=== PATIENT | female | born 1960 | race Caucasian/White ===

== ENCOUNTER → 2017-12-28 07:00 | Outpatient (CLI) | payer OTHER, SELFPAY ==
--- NOTE | 2017-12-28 06:44 | HPBI_ITS ---
MAMMOGRAPHY - BILATERAL SCREENING REASON FOR EXAM: Female, 57 years old. Routine annual screening examination. PERTINENT HISTORY: Non-contributory. TECHNIQUE: Digital bilateral breast donald (3D mammographic acquisition) in the CC and MLO projections. 2-D mediolateral oblique (MLO) and craniocaudad (CC) views of both breasts were obtained. CAD: Full Field Digital Mammography with Computer Added Detection was performed. COMPARISON: Comparison is made with prior artery examination dated December 22, 2016. FINDINGS: Breast Composition: There are scattered areas of fibroglandular density. There are no dominant masses or suspicious calcifications. No other significant abnormalities are identified. There has been no significant change since the prior study. HPBI/SCREENING MAMM (CAD), BILAT IMPRESSION: Stable bilateral screening mammogram. Yearly follow-up mammogram recommended. (A) ASSESSMENT CATEGORY: BIRADS Category 1: Negative. A letter regarding these results will be sent to the patient by the facility within 30 days. Approximately 10% of breast cancers are not detected by mammography. A normal mammogram should not delay biopsy of a clinically suspicious abnormality. [id number] Electronically Signed: Chad Teixeira MD at 8:07 EST Tel [phone], Service support ,
== END ==
PROVIDERS: Family Provider Family Medicine; PCP Family Medicine; Visit Provider Obstetrics & Gynecology
DX: Z12.31 Encounter for screening mammogram for malignant neoplasm of breast (principal)
CPT/HCPCS: 77063; 77067

== ENCOUNTER → 2017-12-28 07:08 | Outpatient (CLI) | payer OTHER, SELFPAY ==
[2017-12-31 11:39] LABS: HPV APTIMA, High Risk Negative (Negative)
== END ==
PROVIDERS: Family Provider Family Medicine; PCP Family Medicine; Visit Provider Nurse Practitioner Women's Health
DX: Z12.4 Encounter for screening for malignant neoplasm of cervix (principal)
CPT/HCPCS: 88175; G0145

== ENCOUNTER → 2018-05-10 05:57 | Outpatient (CLI) | payer OTHER, SELFPAY ==
[2018-05-10 07:57] LABS: Anion Gap 7 (5-15); BUN 20 mg/dL (7-18); BUN/Creat Ratio 26.6 RATIO (10-20); Calcium,Total 8.9 mg/dL (8.5-10.1); Chloride 107 mmol/L (98-107); Cholesterol 188 mg/dL (200); Creatinine, Serum 0.75 mg/dL (0.55-1.02); EST Glomerular Filtration Rate 84 mL/min (>60); Est Glom Filt Rate - Afr Amer 101 mL/min (>60); Glucose 87 mg/dL (74-106); High Density Lipoprotein 55 mg/dL; Sodium Level 141 mmol/L (136-145); Thyroid Stim Hormone (TSH) 2.93 uIU/mL (0.358-3.74); Triglycerides 118 mg/dL; Very Low Density Lipoprotein 24 mg/dL (5-40)
[2018-05-10 09:05] LABS: Vitamin D,25 Hydroxy 49.4 ng/mL (29.95-100.01)
== END ==
PROVIDERS: Family Provider Family Medicine; PCP Family Medicine; Visit Provider Family Medicine
DX: E78.5 Hyperlipidemia, unspecified (principal); E04.1 Nontoxic single thyroid nodule; E55.9 Vitamin D deficiency, unspecified
CPT/HCPCS: 36415; 80048; 80061; 82306; 84443

== ENCOUNTER → 2019-01-24 07:23 | Outpatient (CLI) | payer OTHER, SELFPAY ==
--- NOTE | 2019-01-24 07:26 | BI_ITS ---
MAMMOGRAPHY - BILATERAL SCREENING REASON FOR EXAM: Female, 58 years old. Routine annual screening examination. PERTINENT HISTORY: Non-contributory. TECHNIQUE: Digital bilateral breast donald (3D mammographic acquisition) in the CC and MLO projections. 2-D mediolateral oblique (MLO) and craniocaudad (CC) views of both breasts were obtained. CAD: Full Field Digital Mammography with Computer Added Detection was performed. COMPARISON: Comparison is made with prior study dated December 28, 2017. FINDINGS: Breast Composition: There are scattered areas of fibroglandular density. There are no dominant masses or suspicious calcifications. Stable benign-appearing small bilateral axillary lymph nodes. No other significant abnormalities are identified. There has been no significant change since the prior study. BI/SCREENING MAMM (CAD), BILAT IMPRESSION: Stable bilateral screening mammogram. Yearly follow-up mammogram recommended. (A) ASSESSMENT CATEGORY: BIRADS Category 2: Benign. A letter regarding these results will be sent to the patient by the facility within 30 days. Approximately 10% of breast cancers are not detected by mammography. A normal mammogram should not delay biopsy of a clinically suspicious abnormality. [id number] Electronically Signed: Chad Teixeira, at 11:07 EDT , Service support ,
== END ==
PROVIDERS: Family Provider Family Medicine; PCP Family Medicine; Referring Provider Nurse Practitioner Women's Health; Visit Provider Nurse Practitioner Women's Health
DX: Z12.31 Encounter for screening mammogram for malignant neoplasm of breast (principal)
CPT/HCPCS: 77063; 77067

== ENCOUNTER → 2019-04-14 05:57 | Outpatient (CLI) | payer OTHER, SELFPAY ==
[2019-01-24 08:29] VITALS: BMI 27.3
[2019-04-14 07:54] LABS: Erythrocyte Sedimentation Rate 12 mm/hr (0-30)
[2019-04-14 07:57] LABS: Hematocrit 42.8 % (37-47); Hemoglobin 14.3 g/dl (12.0-15.0); Mean Corp Hgb Conc 33.4 g/gl (32-36); Mean Corpuscular Hgb 30.7 pg (27.0-32.0); Mean Corpuscular Volume 91.8 fL (81-99); Platelet Count 318 K/mm3 (150-450); RBC Distribution Width CV 12.4 % (11.6-14.6); RBC Distribution Width SD 41.7 fl (35.1-43.9); Red Blood Count 4.66 M/mm3 (4.2-5.4); Scan Indicated on CBC? Y/N NO
[2019-04-14 08:22] LABS: Anion Gap 9 (5-15); BUN 24 mg/dL (7-18); BUN/Creat Ratio 29.9 RATIO (10-20); Calcium,Total 9.5 mg/dL (8.5-10.1); Chloride 103 mmol/L (98-107); Cholesterol 195 mg/dL (200); EST Glomerular Filtration Rate 77 mL/min (>60); Est Glom Filt Rate - Afr Amer 93 mL/min (>60); Ferritin 162 ng/mL (8-252); Glucose 90 mg/dL (74-106); High Density Lipoprotein 54 mg/dL; Iron 82 ug/dL (50-170); Potassium 3.8 mmol/L (3.5-5.1); Sodium Level 140 mmol/L (136-145); Thyroid Stim Hormone (TSH) 2.76 uIU/mL (0.358-3.74); Triglycerides 116 mg/dL; Very Low Density Lipoprotein 23 mg/dL (5-40)
[2019-04-14 08:59] LABS: Vitamin B12 > 2000 pg/mL (211-911); Vitamin D,25 Hydroxy 61.8 ng/mL (29.95-100.01)
== END ==
PROVIDERS: Family Provider Family Medicine; PCP Family Medicine; Referring Provider Family Medicine; Visit Provider Family Medicine
DX: Z13.220 Encounter for screening for lipoid disorders (principal); L65.9 Nonscarring hair loss, unspecified
CPT/HCPCS: 36415; 80048; 80061; 82306; 82607; 82728; 83540; 84443; 85027; 85652

== ENCOUNTER → 2020-05-28 07:08 | Outpatient (CLI) | payer OTHER, SELFPAY ==
[2019-01-24 08:29] VITALS: BMI 27.3
[2020-05-28 10:23] LABS: Absolute Lymphocyte Count 2.57 X10^3/uL (0.83-4.51); Absolute Neutrophil Count 3.4 X10^3/uL (2.0-7.7); Basophil# 0.05 X10^3/uL; Basophil% 0.7 % (0-1); Eosinophil# 0.26 X10^3/uL; Eosinophils% 3.7 % (0-5); Hematocrit 44.5 % (37-47); Hemoglobin 14.2 g/dL (12.0-15.0); Lymphocyte # 2.57 X10^3/ul (4.0); Lymphocyte % 36.8 % (19-41); Mean Corp Hgb Conc 31.9 g/dL (32-36); Mean Corpuscular Hgb 30.3 pg (27.0-32.0); Mean Corpuscular Volume 95.1 fL (81-99); Mean Platelet Vol. 10.5 fl (6.2-12.0); Monocyte# 0.71 X10^3/uL; Monocyte% 10.2 % (0-10); NRBC Flagged by Analyzer 0 % (0-5); Neutrophil # 3.39 X10^3/uL (2.7-7.7); Neutrophil % 48.5 % (47-70); Platelet Count 342 K/mm3 (150-450); RBC Distribution Width CV 12.3 % (11.6-14.6); RBC Distribution Width SD 42.5 fl (35.1-43.9); Red Blood Count 4.68 M/mm3 (4.2-5.4)
[2020-05-28 10:40] LABS: Vitamin D,25 Hydroxy 66.9 ng/mL
[2020-05-28 10:46] LABS: Anion Gap 8 (5-15); BUN 26 mg/dL (7-18); BUN/Creat Ratio 32.7 RATIO (10-20); Calcium,Total 8.8 mg/dL (8.5-10.1); Chloride 108 mmol/L (98-107); Cholesterol 221 mg/dL (200); Creatinine, Serum 0.79 mg/dL (0.55-1.02); EST Glomerular Filtration Rate 78 mL/min (>60); Est Glom Filt Rate - Afr Amer 94 mL/min (>60); Glucose 110 mg/dL (74-106); High Density Lipoprotein 49 mg/dL; Potassium 3.8 mmol/L (3.5-5.1); Sodium Level 142 mmol/L (136-145); Thyroid Stim Hormone (TSH) 2.91 uIU/mL (0.358-3.74); Triglycerides 93 mg/dL; Very Low Density Lipoprotein 19 mg/dL (5-40)
== END ==
LOC: LAB 06:41 → MTLAB 07:09
PROVIDERS: PCP Family Medicine; Referring Provider Family Medicine; Visit Provider Family Medicine
DX: E78.5 Hyperlipidemia, unspecified (principal); E55.9 Vitamin D deficiency, unspecified; E04.1 Nontoxic single thyroid nodule
CPT/HCPCS: 36415; 80048; 80061; 82306; 84443; 85025

== ENCOUNTER → 2020-06-05 07:35 | Outpatient (CLI) | payer OTHER, SELFPAY ==
[2019-01-24 08:29] VITALS: BMI 27.3
--- NOTE | 2020-06-05 07:36 | BI_ITS ---
MAMMOGRAPHY - BILATERAL SCREENING 3-D TOMOSYNTHESIS REASON FOR EXAM: Female, 59 years old. Routine screening PERTINENT HISTORY: FAM HX MAT 1ST COUSIN AGE 22 -- NO SX -- LT MOLE MARKED. TECHNIQUE: 2-D mammograms and 3-D Tomosynthesis of the breast (s) were performed. CAD was performed. COMPARISON: 01/24/2019 FINDINGS: The breast composition is composed of scattered fibroglandular density. Scattered benign calcifications are seen. No dense spiculated masses or suspicious microcalcifications are identified. No architectural distortion is identified. There is no skin thickening or retraction. There has been no significant change since the prior study. BI/SCREEN MAMM (CAD) W/SAMARIA BILAT IMPRESSION: No mammographic signs of malignancy. Routine yearly mammograms recommended. ASSESSMENT CATEGORY: BIRADS Category 1: Negative. A letter regarding these results will be sent to the patient by the facility within 30 days. FOLLOW UP RECOMMENDATION: Yearly follow up mammogram recommended. (A) Approximately 10% of breast cancers are not detected by mammography. A normal mammogram should not delay biopsy of a clinically suspicious abnormality. Electronically Signed: Chirag Patrick MD at 9:21 EDT , Service support ,
== END ==
PROVIDERS: Family Provider Family Medicine; PCP Family Medicine; Referring Provider Nurse Practitioner Women's Health; Visit Provider Nurse Practitioner Women's Health
DX: Z12.31 Encounter for screening mammogram for malignant neoplasm of breast (principal)
CPT/HCPCS: 77063; 77067

== ENCOUNTER → 2020-09-19 05:55 | Outpatient (CLI) | payer OTHER, SELFPAY ==
[2020-06-05 08:19] VITALS: BMI 27.3
[2020-09-19 07:43] LABS: ALB/GLOB Ratio 1.1 RATIO (0.9-2.4); AST(SGOT) 25 U/L (15-37); Alanine Aminotransfer ALT/SGPT 35 U/L (13-56); Albumin, Serum 3.9 g/dL (3.2-5.0); Alkaline Phosphatase 90 U/L (45-117); Anion Gap 6 (5-15); BUN 24 mg/dL (7-18); BUN/Creat Ratio 26.5 RATIO (10-20); Calcium,Total 9.1 mg/dL (8.5-10.1); Chloride 108 mmol/L (98-107); Cholesterol 193 mg/dL (200); Creatinine, Serum 0.91 mg/dL (0.55-1.02); EST Glomerular Filtration Rate 67 mL/min (>60); Est Glom Filt Rate - Afr Amer 81 mL/min (>60); Globulin 3.7 g/dL (2.2-4.2); Glucose 98 mg/dL (74-106); High Density Lipoprotein 56 mg/dL; Potassium 3.9 mmol/L (3.5-5.1); Protein, Total 7.6 g/dL (6.4-8.2); Sodium Level 141 mmol/L (136-145); Triglycerides 124 mg/dL; Very Low Density Lipoprotein 25 mg/dL (5-40)
== END ==
PROVIDERS: PCP Family Medicine; Referring Provider Family Medicine; Visit Provider Family Medicine
DX: E78.5 Hyperlipidemia, unspecified (principal)
CPT/HCPCS: 36415; 80053; 80061

== ENCOUNTER → 2020-12-15 07:05 | Outpatient (CLI) | payer OTHER, SELFPAY ==
[2020-06-05 08:19] VITALS: BMI 27.3
[2020-12-15 09:04] LABS: Anion Gap 4 (5-15); BUN 18 mg/dL (7-18); BUN/Creat Ratio 22.3 RATIO (10-20); Calcium,Total 9.1 mg/dL (8.5-10.1); Chloride 106 mmol/L (98-107); Cholesterol 138 mg/dL (200); Creatinine, Serum 0.81 mg/dL (0.55-1.02); EST Glomerular Filtration Rate 76 mL/min (>60); Est Glom Filt Rate - Afr Amer 92 mL/min (>60); Glucose 102 mg/dL (74-106); High Density Lipoprotein 55 mg/dL; Potassium 4.1 mmol/L (3.5-5.1); Sodium Level 140 mmol/L (136-145); Triglycerides 69 mg/dL; Very Low Density Lipoprotein 14 mg/dL (5-40)
== END ==
PROVIDERS: PCP Family Medicine; Referring Provider Family Medicine; Visit Provider Family Medicine
DX: E78.5 Hyperlipidemia, unspecified (principal)
CPT/HCPCS: 36415; 80048; 80061

== ENCOUNTER → 2021-06-03 05:59 | Outpatient (CLI) | payer OTHER, SELFPAY ==
[2020-06-05 08:19] VITALS: BMI 27.3
[2021-06-03 07:59] LABS: Hematocrit 44.7 % (37-47); Hemoglobin 14.3 g/dL (12.0-15.0); Mean Corpuscular Hgb 30.9 pg (27.0-32.0); Mean Corpuscular Volume 96.5 fL (81-99); Mean Platelet Vol. 10.2 fl (6.2-12.0); Platelet Count 337 K/mm3 (150-450); RBC Distribution Width CV 12.1 % (11.6-14.6); RBC Distribution Width SD 43.3 fl (35.1-43.9); Red Blood Count 4.63 M/mm3 (4.2-5.4); White Blood Count 6.8 K/mm3 (4.4-11.0)
[2021-06-03 08:32] LABS: Vitamin D,25 Hydroxy 81.9 ng/mL
[2021-06-03 08:38] LABS: ALB/GLOB Ratio 1.1 RATIO (0.9-2.4); AST(SGOT) 18 U/L (15-37); Alanine Aminotransfer ALT/SGPT 28 U/L (13-56); Alkaline Phosphatase 85 U/L (45-117); Anion Gap 5 (5-15); BUN 19 mg/dL (7-18); BUN/Creat Ratio 24.3 RATIO (10-20); Calcium,Total 9.1 mg/dL (8.5-10.1); Chloride 105 mmol/L (98-107); Cholesterol 176 mg/dL (200); Creatinine, Serum 0.78 mg/dL (0.55-1.02); EST Glomerular Filtration Rate 79 mL/min (>60); Est Glom Filt Rate - Afr Amer 96 mL/min (>60); Globulin 3.5 g/dL (2.2-4.2); Glucose 101 mg/dL (74-106); High Density Lipoprotein 54 mg/dL; Potassium 4.6 mmol/L (3.5-5.1); Protein, Total 7.5 g/dL (6.4-8.2); Sodium Level 140 mmol/L (136-145); Thyroid Stim Hormone (TSH) 4.14 uIU/mL (0.358-3.74); Triglycerides 125 mg/dL; Very Low Density Lipoprotein 25 mg/dL (5-40)
== END ==
PROVIDERS: PCP Family Medicine; Referring Provider Family Medicine; Visit Provider Family Medicine
DX: E55.9 Vitamin D deficiency, unspecified (principal); I10 Essential (primary) hypertension; E78.5 Hyperlipidemia, unspecified; Z13.29 Encounter for screening for other suspected endocrine disorder
CPT/HCPCS: 36415; 80053; 80061; 82306; 84443; 85027

== ENCOUNTER → 2021-06-11 08:17 | Outpatient (CLI) | payer OTHER, SELFPAY ==
[2020-06-05 08:19] VITALS: BMI 27.3
--- NOTE | 2021-06-11 08:20 | BI_ITS ---
MAMMOGRAPHY - BILATERAL SCREENING REASON FOR EXAM: Female, 60 years old. Routine annual screening examination. PERTINENT HISTORY: Non-contributory. TECHNIQUE: Digital bilateral breast samaria (3D mammographic acquisition) in the CC and MLO projections. 2-D mediolateral oblique (MLO) and craniocaudad (CC) views of both breasts were obtained. CAD: Full Field Digital Mammography with Computer Added Detection was performed. COMPARISON: Comparison is made with prior study dated 06/05/2020 and 01/24/2019. FINDINGS: Breast Composition: There are scattered areas of fibroglandular density. There are no dominant masses or suspicious calcifications. Stable benign-appearing bilateral axillary lymph nodes. No other significant abnormalities are identified. There has been no significant change since the prior study. BI/SCRN MAMM (CAD)W/SAMARIA BILAT IMPRESSION: Stable bilateral screening mammogram. Yearly follow-up mammogram recommended. (A) ASSESSMENT CATEGORY: BIRADS Category 2: Benign. A letter regarding these results will be sent to the patient by the facility within 30 days. Approximately 10% of breast cancers are not detected by mammography. A normal mammogram should not delay biopsy of a clinically suspicious abnormality. [id number] Electronically Signed: Chad Teixeira MD at 9:25 EDT , Service support ,
== END ==
PROVIDERS: PCP Family Medicine; Referring Provider Nurse Practitioner Women's Health; Visit Provider Nurse Practitioner Women's Health
DX: Z12.31 Encounter for screening mammogram for malignant neoplasm of breast (principal)
CPT/HCPCS: 77063; 77067

== ENCOUNTER 2021-11-18 15:32 | Outpatient (CLI) | payer OTHER, SELFPAY ==
--- NOTE | 2021-11-18 15:41 | EKG12_ITS ---
Test Reason : PREOP Blood Pressure : / mmHG Vent. Rate : 078 BPM Atrial Rate : 078 BPM P-R Int : 166 ms QRS Dur : 064 ms QT Int : 374 ms P-R-T Axes : 037 044 029 degrees QTc Int : 426 ms Normal sinus rhythm Septal infarct , age undetermined Abnormal ECG Confirmed by PEPPER URIBE, DALE ([id number]), greeting card editor AFSHIN LAY ([id number]) on 11/19/2021 11:31:28 AM Referred By: KWAN Confirmed By:DALE PABON MD
[2021-11-18 16:24] LABS: Hematocrit 41.3 % (37-47); Hemoglobin 13.4 g/dL (12.0-15.0); Mean Corp Hgb Conc 32.4 g/dL (32-36); Mean Corpuscular Hgb 30.4 pg (27.0-32.0); Mean Corpuscular Volume 93.7 fL (81-99); Platelet Count 320 K/mm3 (150-450); RBC Distribution Width CV 12.2 % (11.6-14.6); RBC Distribution Width SD 42.3 fl (35.1-43.9); Red Blood Count 4.41 M/mm3 (4.2-5.4); White Blood Count 8.1 K/mm3 (4.4-11.0)
[2021-11-18 17:17] LABS: Anion Gap 7 (5-15); BUN 18 mg/dL (7-18); BUN/Creat Ratio 19.9 RATIO (10-20); Calcium,Total 9.2 mg/dL (8.5-10.1); Chloride 107 mmol/L (98-107); EST Glomerular Filtration Rate 67 mL/min (>60); Est Glom Filt Rate - Afr Amer 81 mL/min (>60); Glucose 95 mg/dL (74-106); Sodium Level 142 mmol/L (136-145)
== END 2021-11-18 23:59 | disposition short-term general hospital (02) ==
PROVIDERS: PCP Family Medicine; Visit Provider Otolaryngology
DX: Z01.818 Encounter for other preprocedural examination (principal)
CPT/HCPCS: 36415; 80048; 85027; 93005

== ENCOUNTER 2021-11-25 14:56 | Outpatient (CLI) | payer OTHER, SELFPAY ==
--- NOTE | 2021-11-25 | PHA_PTH ---
PAT[facility]: [id number] AGE/SX: 61/F ROOM: RE11/25/[address]: Dr. Magnus Pena MD : 1960 BED: DIS: 11/25/2021 SPEC #: [id number] RECD: 11/25/21 15:25 STATUS: JHOANA RESinan #: [id number] JAMAAL: 11/25/21 00:[address]: Magnus Pena DEPT: SURGICAL PATHOLOGY RECD BY: Fransisca Quesada ENTERED: 11/26/21 07:01 SP TYPE: PHARYNX BX OTHR DR: Dr. 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 Negative for malignancy. See comment. RESHMA:lucio 11/27/2021 COMMENT Clinical correlation and appropriate follow up are necessary. Immunohistochemistry ([id number]) for surrogate HPV marker (p16) supports the above diagnosis. Case has been reviewed in consultation with Dr. Cuenca who concurs with the above diagnosis. IDC:AM MICROSCOPIC DESCRIPTION Slides are reviewed. GROSS DESCRIPTION Received is one container labeled with the patient's name and not further designated. The specimen consists of multiple irregular fragments of cerrato soft tissue that in aggregate measure 1.5 x 0.7 x 0.2 cm. The specimen is totally submitted in one cassette. / RESHMA:lucio 11/26/2021 TC:1 CPT: 70511 ADDENDUM ADDENDUM ADDENDUM ADDENDUM ADDENDUM ADDENDUM ADDENDUM ADDENDUM ADDENDUM ADDENDUM 02/13/2022 09:56 ADDENDUM 02/13/2022 09:56 ADDENDUM 02/13/2022 09:56 ADDENDUM 02/13/2022 09:56 ADDENDUM 02/13/2022 09:56 This addendum is added to incorporate an outside pathology consultation report. The case was examined at [facility] (#[id number]) and the following diagnosis was rendered. 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 Please see complete above mentioned consultation report in EMR
--- NOTE | 2021-11-25 | IMM_PTH ---
PATIENT: LETITIA MALONE LOC: [facility] U#:[id number] AGE/SX: 61/F ROOM: RE11/25/[address]: Dr. Magnus Pena MD : 1960 BED: DIS: 11/25/2021 SPEC #: [id number] RECD: 11/27/21 12:33 STATUS: JHOANA REQ #: [id number] JAMAAL: 11/25/21 00:[address]: Magnus Pena DEPT: IMMUNOHISTOCHEMISTRY RECD BY: Shanae Bingham ENTERED: 11/27/21 12:34 SP TYPE: IMMUNO OTHR DR: Dr. Jonathan Sanchez MD Tissues: Oropharynx, NOS Procedures: p16 (initial) KI-67 (add) PHYSICIAN & INSTITUTION [place] [id number] SPECIMEN INFORMATION: Tissue Source: Oropharyngeal neoplasm biopsy Clinical Info: Benign neoplasm of oropharynx Specimen Number: [id number] CPT code: 64908, 77146 METHODOLOGY: Deparaffinized sections of prefer/formalin-fixed tissue or PAP/DQ stained slides are incubated with monoclonal/polyclonal antibodies/oligonucleotide probes. Localization is made via biotin free immunoperoxidase method. Appropriate controls are performed and reacted as expected. Results on target cell population are indicated in the following table: RESULTS: ANTIBODY / CLONE RESULT P16 (E6H4) positive, focal, patchy Ki-67 (30-9) positive, low to moderate These tests were developed and their performance characteristics determined by [facility]. They may not have been cleared or approved by the U.S. Food and Drug Administration. The FDA has determined that such clearance or approval is not necessary. The above immunohistochemical/dualISH markers are ordered and reviewed by the Pathologist. INTERPRETATION: Oropharyngeal neoplasm, biopsy: Squamous papilloma with focal mild to moderate atypia. Case has been reviewed in consultation with who concurs with the above diagnosis. SJ:lucio 11/28/2021
== END 2021-11-25 23:59 | disposition short-term general hospital (02) ==
LOC: LABSPEC 14:58
PROVIDERS: PCP Family Medicine; Visit Provider Otolaryngology
DX: D10.5 Benign neoplasm of other parts of oropharynx (principal)
CPT/HCPCS: 88305; 88341; 88342

== ENCOUNTER 2021-11-30 06:59 | Outpatient (CLI) | payer OTHER, SELFPAY ==
[2021-11-30 08:04] LABS: Anion Gap 3 (5-15); BUN 18 mg/dL (7-18); BUN/Creat Ratio 21.1 RATIO (10-20); Calcium,Total 9.7 mg/dL (8.5-10.1); Chloride 106 mmol/L (98-107); Cholesterol 148 mg/dL (200); Creatinine, Serum 0.85 mg/dL (0.55-1.02); EST Glomerular Filtration Rate 71 mL/min (>60); Est Glom Filt Rate - Afr Amer 86 mL/min (>60); Glucose 122 mg/dL (74-106); High Density Lipoprotein 54 mg/dL; Potassium 4.6 mmol/L (3.5-5.1); Sodium Level 139 mmol/L (136-145); Thyroid Stim Hormone (TSH) 1.87 uIU/mL (0.358-3.74); Triglycerides 162 mg/dL; Very Low Density Lipoprotein 32 mg/dL (5-40)
[2021-12-02 10:29] LABS: Vitamin B12 > 2000 pg/mL (211-911); Vitamin D,25 Hydroxy 77.6 ng/mL
== END 2021-11-30 23:59 | disposition short-term general hospital (02) ==
LOC: LAB 07:00
PROVIDERS: PCP Family Medicine; Referring Provider Family Medicine; Visit Provider Family Medicine
DX: I10 Essential (primary) hypertension (principal); E55.9 Vitamin D deficiency, unspecified; E04.1 Nontoxic single thyroid nodule; E78.5 Hyperlipidemia, unspecified
CPT/HCPCS: 36415; 80048; 80061; 82306; 82607; 84443

== ENCOUNTER → 2022-05-30 | Outpatient (CLI) | payer OTHER, SELFPAY | END | disposition home or self-care (01) | PROVIDERS: PCP Family Medicine; Visit Provider Family Medicine | DX: Z01.818 Encounter for other preprocedural examination (principal) | CPT/HCPCS: 87635; U0003; U0005 ==

== ENCOUNTER → 2022-06-11 | Outpatient (CLI) | payer OTHER, SELFPAY ==
[2022-06-11 06:27] LABS: Absolute Lymphocyte Count 2.42 X10^3/uL (0.83-4.51); Absolute Neutrophil Count 3.5 X10^3/uL (2.0-7.7); Basophil# 0.06 X10^3/uL; Basophil% 0.9 % (0-1); Eosinophil# 0.28 X10^3/uL; Hematocrit 40.8 % (37-47); Hemoglobin 13.3 g/dL (12.0-15.0); Lymphocyte # 2.42 X10^3/ul (0.83-4.51); Mean Corp Hgb Conc 32.6 g/dL (32-36); Mean Corpuscular Hgb 30.4 pg (27.0-32.0); Mean Corpuscular Volume 93.4 fL (81-99); Mean Platelet Vol. 9.8 fl (6.2-12.0); Monocyte# 0.64 X10^3/uL; Monocyte% 9.2 % (0-10); NRBC Flagged by Analyzer 0 % (0-5); Neutrophil % 50.6 % (47-70); Platelet Count 333 K/mm3 (150-450); RBC Distribution Width CV 12.1 % (11.6-14.6); RBC Distribution Width SD 41.7 fl (35.1-43.9); Red Blood Count 4.37 M/mm3 (4.2-5.4); White Blood Count 6.9 K/mm3 (4.4-11.0)
[2022-06-11 06:59] LABS: ALB/GLOB Ratio 1.1 RATIO (0.9-2.4); AST(SGOT) 15 U/L (15-37); Alanine Aminotransfer ALT/SGPT 21 U/L (13-56); Albumin, Serum 3.6 g/dL (3.2-5.0); Alkaline Phosphatase 84 U/L (45-117); Anion Gap 6 (5-15); BUN 20 mg/dL (7-18); BUN/Creat Ratio 26.9 RATIO (10-20); Calcium,Total 8.8 mg/dL (8.5-10.1); Chloride 108 mmol/L (98-107); Cholesterol 141 mg/dL (200); Creatinine, Serum 0.74 mg/dL (0.55-1.02); EST Glomerular Filtration Rate 84 mL/min (>60); Est Glom Filt Rate - Afr Amer 101 mL/min (>60); Globulin 3.4 g/dL (2.2-4.2); Glucose 116 mg/dL (74-106); High Density Lipoprotein 48 mg/dL; Sodium Level 140 mmol/L (136-145); Triglycerides 87 mg/dL; Very Low Density Lipoprotein 17 mg/dL (5-40)
[2022-06-11 08:20] LABS: Vitamin D,25 Hydroxy 100.2 ng/mL
== END | disposition home or self-care (01) ==
LOC: LAB 05:52
PROVIDERS: PCP Family Medicine; Visit Provider Nurse Practitioner Family
DX: Z01.89 Encounter for other specified special examinations (principal)
CPT/HCPCS: 36415; 80053; 80061; 82306; 85025

== ENCOUNTER → 2022-06-16 | Outpatient (CLI) | payer OTHER, SELFPAY ==
[2021-06-11 08:51] VITALS: BMI 27.3
--- NOTE | 2022-06-16 07:34 | BI_ITS ---
MAMMOGRAPHY - BILATERAL SCREENING 3-D TOMOSYNTHESIS REASON FOR EXAM: Female, 61 years old. Annual screening mammogram. PERTINENT HISTORY: No significant family history. TECHNIQUE: 2-D mammograms and 3-D Tomosynthesis of the breast (s) were performed. CAD was performed. COMPARISON: 06/11/2021, 06/05/2020. FINDINGS: The breast composition is composed of scattered fibroglandular density. Stable lymph nodes. No dense spiculated masses or suspicious microcalcifications are identified. No architectural distortion is identified. There is no skin thickening or retraction. BI/SCRN MAMM (CAD)W/SAMARIA BILAT IMPRESSION: No interval change and no mammographic signs of malignancy. Routine yearly mammograms recommended. ASSESSMENT CATEGORY: BIRADS Category 2: Benign. A letter regarding these results will be sent to the patient by the facility within 30 days. FOLLOW UP RECOMMENDATION: Yearly follow up mammogram recommended. (A) Approximately 10% of breast cancers are not detected by mammography. A normal mammogram should not delay biopsy of a clinically suspicious abnormality. Electronically Signed: Richard Saeed MD at 10:59 EDT ,
[2022-06-18 16:23] LABS: HPV APTIMA, High Risk Negative (Negative)
== END | disposition home or self-care (01) ==
PROVIDERS: PCP Family Medicine; Visit Provider Nurse Practitioner Women's Health
DX: Z12.31 Encounter for screening mammogram for malignant neoplasm of breast (principal)
CPT/HCPCS: 77063; 77067; 87624; 88175; G0145

== ENCOUNTER → 2022-12-13 | Outpatient (CLI) | payer OTHER, SELFPAY ==
[2022-12-13 08:06] LABS: Absolute Lymphocyte Count 2.55 X10^3/uL (0.83-4.51); Absolute Neutrophil Count 4.3 X10^3/uL (2.0-7.7); Basophil# 0.06 X10^3/uL; Basophil% 0.8 % (0-1); Eosinophils% 3.8 % (0-5); Hematocrit 43.1 % (37-47); Hemoglobin 13.8 g/dL (12.0-15.0); Lymphocyte # 2.55 X10^3/ul (0.83-4.51); Lymphocyte % 32.3 % (19-41); Mean Corpuscular Hgb 30.4 pg (27.0-32.0); Mean Corpuscular Volume 94.9 fL (81-99); Mean Platelet Vol. 10.2 fl (6.2-12.0); Monocyte# 0.66 X10^3/uL; Monocyte% 8.4 % (0-10); NRBC Flagged by Analyzer 0 % (0-5); Neutrophil % 54.4 % (47-70); Platelet Count 336 K/mm3 (150-450); RBC Distribution Width CV 12.7 % (11.6-14.6); RBC Distribution Width SD 44.4 fl (35.1-43.9); Red Blood Count 4.54 M/mm3 (4.2-5.4); White Blood Count 7.9 K/mm3 (4.4-11.0)
[2022-12-13 08:52] LABS: ALB/GLOB Ratio 1.1 RATIO (0.9-2.4); AST(SGOT) 14 U/L (15-37); Alanine Aminotransfer ALT/SGPT 22 U/L (13-56); Albumin, Serum 3.7 g/dL (3.2-5.0); Alkaline Phosphatase 85 U/L (45-117); Anion Gap 7 (5-15); BUN 22 mg/dL (7-18); BUN/Creat Ratio 28.4 RATIO (10-20); Chloride 108 mmol/L (98-107); Cholesterol 164 mg/dL (200); Creatinine, Serum 0.78 mg/dL (0.55-1.02); EST Glomerular Filtration Rate 79 mL/min (>60); Est Glom Filt Rate - Afr Amer 96 mL/min (>60); Globulin 3.5 g/dL (2.2-4.2); Glucose 108 mg/dL (74-106); High Density Lipoprotein 55 mg/dL; Potassium 4.1 mmol/L (3.5-5.1); Protein, Total 7.2 g/dL (6.4-8.2); Sodium Level 142 mmol/L (136-145); Triglycerides 96 mg/dL; Very Low Density Lipoprotein 19 mg/dL (5-40)
[2022-12-15 07:47] LABS: Vitamin D,25 Hydroxy 82.7 ng/mL
== END | disposition home or self-care (01) ==
LOC: LAB 07:02
PROVIDERS: PCP Family Medicine; Visit Provider Family Medicine
DX: Z00.00 Encounter for general adult medical examination without abnormal findings (principal)
CPT/HCPCS: 36415; 80053; 80061; 82306; 85025

== ENCOUNTER → 2023-06-13 | Outpatient (CLI) | payer OTHER, SELFPAY ==
[2023-06-13 08:11] LABS: Anion Gap 7 (5-15); BUN 12 mg/dL (7-18); BUN/Creat Ratio 13.8 RATIO (10-20); Calcium,Total 9.1 mg/dL (8.5-10.1); Chloride 107 mmol/L (98-107); Cholesterol 160 mg/dL (200); Creatinine, Serum 0.87 mg/dL (0.55-1.02); EST Glomerular Filtration Rate 70 mL/min (>60); Est Glom Filt Rate - Afr Amer 84 mL/min (>60); Glucose 109 mg/dL (74-106); High Density Lipoprotein 53 mg/dL; Potassium 3.7 mmol/L (3.5-5.1); Sodium Level 140 mmol/L (136-145); Triglycerides 172 mg/dL; Very Low Density Lipoprotein 34 mg/dL (5-40)
[2023-06-16 12:09] LABS: Vitamin D 1,25-Dihydroxy 53.5 pg/mL (24.8-81.5)
== END | disposition home or self-care (01) ==
LOC: LAB 07:02
PROVIDERS: PCP Family Medicine; Visit Provider Family Medicine
DX: I10 Essential (primary) hypertension (principal); E55.9 Vitamin D deficiency, unspecified
CPT/HCPCS: 36415; 80048; 80061; 82652

== ENCOUNTER → 2023-06-22 | Outpatient (CLI) | payer OTHER, SELFPAY ==
--- NOTE | 2023-06-22 07:45 | BI_ITS ---
MAMMOGRAPHY - BILATERAL SCREENING REASON FOR EXAM: Female, 62 years old. Routine annual screening examination. PERTINENT HISTORY: Non-contributory. TECHNIQUE: Digital bilateral breast samaria (3D mammographic acquisition) in the CC and MLO projections. 2-D mediolateral oblique (MLO) and craniocaudad (CC) views of both breasts were obtained. CAD: Full Field Digital Mammography with Computer Added Detection was performed. COMPARISON: Comparison is made with prior study dated June 16, 2022 and June 11, 2021. FINDINGS: Breast Composition: The breasts are heterogeneously dense, which may obscure small masses. There are no dominant masses or suspicious calcifications. Stable small benign-appearing bilateral axillary lymph nodes. No other significant abnormalities are identified. There has been no significant change since the prior study. BI/SCRN MAMM (CAD)W/SAMARIA BILAT IMPRESSION: Stable bilateral screening mammogram. Yearly follow-up mammogram recommended. (A) ASSESSMENT CATEGORY: BIRADS Category 2: Benign. A letter regarding these results will be sent to the patient by the facility within 30 days. Approximately 10% of breast cancers are not detected by mammography. A normal mammogram should not delay biopsy of a clinically suspicious abnormality. [id number] Electronically Signed: Chad Teixeira MD at 9:10 EDT ,
== END | disposition home or self-care (01) ==
LOC: OPBI 07:26
PROVIDERS: PCP Family Medicine; Referring Provider Nurse Practitioner Women's Health; Visit Provider Nurse Practitioner Women's Health
DX: Z12.31 Encounter for screening mammogram for malignant neoplasm of breast (principal)
CPT/HCPCS: 77063; 77067

== ENCOUNTER → 2023-12-07 | Outpatient (CLI) | payer MEDICARE, OTHER, SELFPAY ==
--- OUTSIDE RECORDS SUMMARY | 2023-12-07 06:14 | XMS RPT_ITS | CCD ---
Author Name Unknown Address [address] [place] [address] Organization [facility] Care Team Providers Care Mortgage Assistant Name Role Phone Portillo Marti Unavailable Unavailable Unavailable Unavailable Unavailable Dr. Portillo Marti Primary Care Terri vailable Dr. Edison Evans Referring Unavailable Dr. Portillo Marti Primary Care Terri vailable Cristina, Dr. London Attending Unavailable Cristina, Dr. London Attending Unavailable Cristina, Dr. London Referring Unavailable Daniel, Dr. Portillo Flannery Primary Care Terri vailable Daniel, Dr. Portillo Flannery Primary Care Terri vailable Daniel, Dr. Portillo Flannery Referring Terri vailable Cristina, Dr. London Attending Unavailable Daniel, Dr. Portillo Flannery Primary Care Terri vailaDr. Edison Dean Admitting Unavailable Cristina, Dr. London Referring Unavailable Cristina, Dr. London Attending Unavailable Dr. Portillo Marti Primary Care Terri vailable Dr. Edison Evans Attending Unavailable Portillo Marti MD [facility] Provide r EDISON EVANS Attending Unavailable PORTILLO MARTI Primary [facility] Unavail able Allergies Allergy Classification Reported Allergen(s) Allergy Type Date of Onset Reaction(s) Facility (7 sources) Penicillins; Translations: [Penicillins] Allergy to drug (finding) -[id number] 5 [facility] 3 Repository (2 sources) Estradiol / Norethindrone; Translations: [ESTRADIOL-NORE THINDRONE ACET] Drug Allergy 4 Other [facility] (1 source) Penicillins Drug Intolerance 5 Swelling, Other, Unknown [facility] Work Phone: Medications Current Medications Medication Drug Class(es) Dates Sig (Normalized) Sig (Original) atorvastatin 20 mg oral tablet (8 sources) HMG-CoA Reductase Inhibitor Start: 01-08-2021 take 1 tablet by mouth three times weekly atorvastatin (Lipitor) 20 mg tablet Take 1 tablet (20 mg) by mouth 3 times a week. 0 01/08/2021 Active Completed/Discontinued Medications Medication Drug Class(es) Dates Sig (Normalized) Sig (Original) acetaminophen 500 mg oral tablet (7 sources) Tylenol Extra Strength 500 MG Oral Tablet Quantity: 0 Refills: 0 Ordered: 30-Dec-2021 DO Active acetaminophen 24 mg/ml / codeine phosphate 2.4 mg/ml oral solution (3 sources) Opioid Agonist Start: 06-02-2022 take 15 mL by mouth every six hours as needed for pain Acetaminophen-Cod eine 120-12 MG/5ML Oral Solution TAKE 15 ML BY MOUTH EVERY 6 HOURS NEEDED FOR PAIN Quantity: 140 Refills: 0 Ordered: 02-Jun-2022 DO Start : 02-Jun-2022 Active ascorbic acid 200 mg / beta carotene 1000 unt / cuprous oxide 2 mg / dl-alpha tocopheryl acetate 60 unt / lutein 2 mg / sodium selenate 0.055 mg / zinc oxide 40 mg oral tablet (7 sources) Vitamin C Ocuvite TABS Quantity: 0 Refills: 0 Ordered: 30-Dec-2021 DO Active biotin 10 mg oral tablet (7 sources) Biotin 20121 MCG Oral Tablet Quantity: 0 Refills: 0 Ordered: 30-Dec-2021 DO Active brompheniramine maleate 0.4 mg/ml / dextromethorphan hydrobromide 2 mg/ml / pseudoephedrine hydrochloride 6 mg/ml oral solution (5 sources) alpha-Adrenergic Agonist, Uncompetitive S-wxztfs-Y-aspartat e Receptor Antagonist, Sigma-1 Agonist Start: 04-22-2022 Pseudoeph-Bromphe n-DM 30-2-10 MG/5ML Oral Syrup Quantity: 240 Refills: 0 Ordered: 22-Apr-2022 DO Start : 22-Apr-2022 Active estradiol 0.1 mg/ml vaginal cream (7 sources) Estrogen Estradiol 0.1 MG/GM Vaginal Cream Quantity: 0 Refills: 0 Ordered: 30-Dec-2021 DO Active polyethylene glycol 3350 81081 mg powder for oral solution (3 sources) Osmotic Laxative Start: 06-02-2022 Polyethylene Glycol 3350 17 GM/SCOOP Oral Powder MIX 17 GM IN LIQUID AND DRINK ONCE DAILY Quantity: 238 Refills: 0 Ordered: 02-Jun-2022 DO Start : 02-Jun-2022 Active 24 hr venlafaxine 75 mg extended release oral capsule (8 sources) Serotonin and Norepinephrine Reuptake Inhibitor Start: 12-31-2020 take 1 capsule by mouth every twenty-four hours Venlafaxine HCl ER 75 MG Oral Capsule Extended Release 24 Hour Quantity: 30 Refills: 0 Ordered: 05-Mar-2021 DO Start : 31-Dec-2020 Active Problems Active Problems Problem Classification Problem Date Documented Da te Episodic/Chronic Acute and chronic tonsillitis (1 source) Mass of palatine tonsil; Translations: [Other chronic diseases of tonsils and adenoids] 10-05-2023 Chronic Disorders of lipid metabolism (1 source) Hyperlipidemia, unspecified; Translations: [Hyperlipidemia, unspecified] Onset: 06-02-2022 Chronic Essential hypertension (1 source) Essential (primary) hypertension; Translations: [Essential (primary) hypertension] Onset: 06-02-2022 Chronic Mood disorders (1 source) Mood disorders; Translations: [Depression, unspecified] Onset: 06-02-2022 Other and unspecified benign neoplasm (7 sources) Benign neoplasm of oropharynx; Translations: [Benign neoplasm of other parts of oropharynx] Episodic Other gastrointestinal disorders (1 source) Irritable bowel syndrome without diarrhea; Translations: [Irritable bowel syndrome without diarrhea] Onset: 06-02-2022 Chronic Past or Other Problems Problem Classification Problem Date Documented Da te Episodic/Chronic Other aftercare (1 source) Other buttermaker helper (current) drug therapy; Translations: [Other buttermaker helper (current) drug therapy] Onset: 05-27-2022 Episodic Other and unspecified benign neoplasm (2 sources) Benign neoplasm of other parts of oropharynx; Translations: [Benign neoplasm of other parts of oropharynx] Onset: 06-02-2022 Episodic Unclassified (1 source) Onset: 10-05-2023 10-05-2023 Results Test Name Value Interpretation Reference Range Facil ity Vital Signs Date Time Vital Sign Value Performing Clinician Darien gutierres 10-05-2023 15:09-0500 Body height 163.2 cm Edison Evans MD Work Phone: [facility] 10-05-2023 15:09-0500 Body mass index (BMI) [Ratio] 28.61 kg/m2 Edison Evans MD Work Phone: [facility] 10-05-2023 15:09-0500 Body weight 76.2 kg Edison Evans MD Work Phone: [facility] 01-26-2023 08:17-0400 Body height 162.56 cm Portillo Marti Work Phone[facility] Work Phone: 01-26-2023 08:17-0400 Body mass index (BMI) [Ratio] 28.65 kg/m2 Portillo Marti Work Phone: [facility] Work Phone: 01-26-2023 08:17-0400 Body surface area Derived from formula 1.81 m2 Portillo Marti Work Phone: [facility] Work Phone: 01-26-2023 08:17-0400 Body weight 75.71 kg Portillo Marti Work Phone: [facility] Work Phone: 06-23-2022 14:51-0400 Body height 162.56 cm Portillo Marti Work Phone: MU-Fkbefycxsttxjh-G eidman Work Phone: 06-23-2022 14:51-0400 Body mass index (BMI) [Ratio] 27.67 kg/m2 Portillo Rodriguez Daniel Work Phone: FT-Npcjlmsurjmbpi-O e[facility]man Work Phone: 06-23-2022 14:51-0400 Body surface area Derived from formula 1.78 m2 Portillo Rodriguez Hardeepeugenio Work Phone: IJ-Fodngcztbnxrum-Q eidman Work Phone: 06-23-2022 14:51-0400 Body temperature 93.6 [degF] Portillo Rodriguez Hardeepeugenio Work Phone: NA-Imtbqdkvvgmvpg-F eidman Work Phone: 06-23-2022 14:51-0400 Body weight 73.12 kg Portillo Marti Work Phone: VF-Lvazvumwkisosy-D eidman Work Phone: 05-12-2022 15:43-0400 Body height 162.56 cm Portillo Marti Work Phone: [facility]zl[facility] Work Phone: 05-12-2022 15:43-0400 Body mass index (BMI) [Ratio] 28.15 kg/m2 Portillo Marti Work Phone: [facility]gu[facility] Work Phone: 05-12-2022 15:43-0400 Body surface area Derived from formula 1.8 m2 Portillo Marti Work Phone: [facility]cdn[facility] Work Phone: 05-12-2022 15:43-0400 Body temperature 99 [degF] Portillo Marti Work Phone: KP-Ipuaphricmibgm-K [facility] [address] Work Phone: 05-12-2022 15:43-0400 Body weight 74.39 kg Portillo Marti Work Phone: ZS-Rujtdmgxzpwnem-E [facility] [address] Work Phone: 12-30-2021 16:04-0500 Body height 162.56 cm Portillo Marti Work Phone: IW-Wpyxvgmyweosys-P e[facility] Work Phone: 12-30-2021 16:04-0500 Body mass index (BMI) [Ratio] 27.96 kg/m2 Portillo Marti Work Phone: CO-Xteiiulsyefotn-H e[facility]man Work Phone: 12-30-2021 16:04-0500 Body surface area Derived from formula 1.79 m2 Portillo Marti Work Phone: QY-Bzfsundlklpmvh-C eidman Work Phone: 12-30-2021 16:04-0500 Body temperature 98.2 [degF] Portillo Marti Work Phone: WT-Gfimpicjmjymlp-P eidman Work Phone: 12-30-2021 16:04-0500 Body weight 73.89 kg Portillo Marti Work Phone: II-Ajmndaqhfspmzh-M e[facility]man Work Phone: Encounters Encounter Date Encounter Type Care Provider Facility Start: 10-05-2023 End: 10-05-2023 ambulatory [facility] Ambulatory Start: 10-05-2023 End: 10-05-2023 Office outpatient visit 10 minutes Edison Evans MD Work Phone: [facility] Procedures Date Procedure Procedure Detail Performing Clinician Start: 10-05-2023 Follow-up visit Follow-up EDISON L I Plan of Treatment Date Care Activity Detail Author Start: 06-11-2031 DTaP/Tdap/Td Vaccines (2 - Td or Tdap) DTaP/Tdap/Td Vaccines (2 - Td or Tdap) [facility] Start: 04-04-2024 End: 04-04-2024 Patient encounter procedure 04/04/2024 3:15 PM EDT Office Visit [facility] [address] [place] [id number] [place] [address] [place] [address] [facility] Start: 07-13-2023 FUV, Provider: Edison Evans, Status: Pen, Time: 4:00 PM FUV, Provider: Edison Evans, Status: Pen, Time: 4:00 PM PZ-Sqlezynfsvappe-Zxv grin [facility] [address] Work Phone: Start: 01-26-2023 FUV, Provider: Edison Eavns, Status: Pen, Time: 8:00 AM FUV, Provider: Edison Evans, Status: Pen, Time: 8:00 AM CN-Narmalityxptyf-Gzt dman Work Phone: Start: 12-29-2022 FUV, Provider: Edison Evans, Status: Pen, Time: 8:00 AM FUV, Provider: Edison Evans, Status: Pen, Time: 8:00 AM BK-Fhsmmtsfzcabii-Dee dman Work Phone: Start: 11-17-2022 COVID-19 Vaccine (5 - Moderna risk series) COVID-19 Vaccine (5 - Moderna risk series) [facility] Start: 06-02-2022 [facility], Provider: Edison Evans, Status: Pen, Time: 1:00 PM [facility], Provider: Edison Evans, Status: Pen, Time: 1:00 PM EY-Kpysypvifgxfva-Mdj dman Work Phone: Start: 05-12-2022 FUV, Provider: Edison Evans, Status: Pen, Time: 4:00 PM FUV, Provider: Edison Evans, Status: Satinder, Time: 4:00 PM DJ-Erxjcclyjlvsnv-Hzr dman Work Phone: Start: 10-26-2020 Zoster Vaccines (2 of 2) Zoster Vaccines (2 of 2) [facility] Start: 1998 Screening for malignant neoplasm of breast Mammogram [facility] Start: 1979 Screening for malignant neoplasm of cervix [facility] Start: 1976 Diabetes mellitus screening Diabetes Screening [facility] Start: 1976 Hepatitis C screening Hepatitis C Screening [facility] Start: 1964 Pneumococcal Vaccine: 65+ Years (1 - PCV) Pneumococcal Vaccine: 65+ Years (1 - PCV) [facility] Start: 1959 MMR Vaccines (1 of 1 - Standard series) MMR Vaccines (1 of 1 - Standard series) [facility] Start: 1958 Lipid panel Lipid Panel [facility] Start: 1958 Screening for malignant neoplasm of colon [facility] Start: 1958 Screening for osteoporosis Bone Density Scan [facility] Start: 1958 Yearly Adult Physical Yearly Adult Physical [facility] Payers Date Payer Category Payer Unknown 2023 Unknown [id number] 1958 Unknown [id number] [id number] 1958 Unknown [id number] 2.16. [id number] 1958 Unknown [id number] 2.16. [id number] 1958 Unknown [id number] 2.16. [id number] 1958 Unknown [id number] [id number] 1958 Unknown [id number] [id number] [id number] 1958 Unknown [id number] [id number] Social History Date Type Detail Facility Start: 10-05-2023 Tobacco smoking status NHIS Never smoked tobacco [facility] Work Phone: Start: 10-05-2023 Tobacco use and exposure Smokeless tobacco non-user [facility] Work Phone: Start: 10-05-2023 History of Social function [facility] Work Phone: Start: 10-05-2023 Tobacco use panel [facility] Work Phone: Start: 1960 Sex Assigned At Female [facility] Start: 08-16-2023 Gender identity Identifies as female gender (finding) [facility] Work Phone: Start: 08-16-2023 Sexual orientation Heterosexual (finding) [facility] Work Phone: Start: 09-25-2023 End: 10-05-2023 Exposure to SARS-CoV-2 (event) Not sure [facility] History of Present illness Narrative 10-05-2023 Edison Evans MD - 10/05/2023 3:15 PM EST Note Date & Type Note Facility 10-05-2023 History of Present illness Narrative ENT Follow up Visit History Of Present Illness Brenna Mendoza is a 63 y.o. female presents for follow up of tonsillar papilloma. Recall 61 yo woman referred by Dr. Pena for evaluation of oropharyngeal papillomas. She first noticed this 5-6 years ago. had right sided tonsillectomy for redundant tissue prior to that. May have slowly grown but not causing any symptoms. No pain, no trouble breathing; no bleeding. This was biopsied showing no malignancy. no bleeding disorders, no cardiac problems. 05-12-22 FU: no new complaints, some right sided nasal congestion off an on. no pain 06-23-22 post-op: s/p removal of oropharyngeal papilloma. minimal pain, no bleeding 01-26-23 FU: doing well, no complaints today 10-05-23 FU: she is doing well, overwhelmed since her is getting chemo for CLL/SLL. Past Medical History She has no past medical history on file. Surgical History She has no past surgical history on file. Social History She reports that she has never smoked. She has never used smokeless tobacco. No history on file for alcohol use and drug use. Family History No family history on file. Allergies Estradiol-norethindrone acet and Penicillins Physical Exam: nad alert shonda eomi NCAT right tonsil fossa well healed scar band no residual papilloma seen neck without masses or LIVIA Last Recorded Vitals Height 1.632 m (5' 4.25 ), weight 76.2 kg (168 lb). Assessment and Plan 63 y.o. female with oropharyngeal papillomas S/p excision with path showing mild-mod dysplasia with papilloma -well healed -RTC in 6 months Edison Evans MD documented in this encounter [facility] Work Phone: Clinical Note 06-02-2022 Note Date & Type Note Facility 06-02-2022 Note PROCEDURE DETAILS Preoperative Diagnosis: 1. Papilloma of oropharynx Postoperative Diagnosis: 1. Papilloma of oropharynx Surgeon: Edison Evans Resident/Fellow/Other Geothermal Operations Engineer: Jose Maria Procedure: 1. Revision right tonsillectomy, removal of papilloma Anesthesia: No anesthesiologist associated with this case Estimated Blood Loss: 5 Findings: 1 Specimens(s) Collected: yes, Complications: none Patient Returned To/Condition: pacu/stable Operative Report: INDICATIONS: 61 year old female presented to clinic for evaluation of a right oropharyngeal papilloma. Previous biopsy showed mild to moderate dysplasia however there was interval increase in size. Excision in the operating room was recommended for definitive diagnosis. The risks, benefits, and alternatives to the procedure were discussed with the patient and they elected to proceed. PROCEDURE: The patient was seen and consent was confirmed in the preop area. They were brought back to the operating room and laid supine on the operating table. Proper time out was performed. General anesthesia was induced and they were intubated without issue. The head of the bed was then turned 90 degrees. We used the Lachelle Justin to expose the oropharynx. As we retracted the uvula superiorly, we could see a continuous papillomatous area from the base of the posterior uvula mucosa down to the inferior tonsillar pole. We used a Bovie to incise the mucosa, we then removed the whole lesion in a plane just above the muscle. There did not appear to be any deeper invasion or depth to this lesion. The specimen was oriented and sent for pathology. A suction bovie was used to cauterize some minor oozing. The patient was then returned to anesthesia for wake up, which proceeded without issue. They were taken to PACU in stable condition. There were no complications. Attestation: Note Completion: Attending AttestationI was present for the entire procedure Electronic Signatures: Edison Evans) (Signed 02-Jun-2022 08:23) Authored: Post-Operative Note, Chart Review, Note Completion Geoff Moise (Resident)) (Signed 02-Jun-2022 07:39) Authored: Post-Operative Note, Chart Review, Note Completion Last Updated: 02-Jun-2022 08:23 by Edison Evans) [facility] Clinical Note 06-02-2022 Note Date & Type Note Facility 06-02-2022 Note History & Physical R eviewed: I have reviewed the History and Physical dated: 27-May-2022 History and Physical reviewed and relevant findings noted. Patient examined to review pertinent physical findings.: No significant changes Home Medications Reviewed: no changes noted Allergies Reviewed: no changes noted ERAS (Enhanced Recovery After Surgery): ERAS Patient: no Consent: COVID-19 Consent: COVID-19 Risk ConsentSurgeon has reviewed lozano risks related to the risk of [place] COVID-19 and if they contract COVID-19 what the risks are. Attestation: Note Completion: I am a: Resident/Fellow Attending AttestationI saw and evaluated the patient. I personally obtained the lozano and critical portions of the history and physical exam or was physically present for lozano and critical portions performed by the resident/fellow. I reviewed the resident/fellows documentation and discussed the patient with the resident/fellow. I agree with the resident/fellows medical decision making as documented in the note. I personally evaluated the patient [id number] Electronic Signatures: Edison Evans) (Signed 02-Jun-2022 07:26) Authored: Note Completion Co-Signer: History & Physical Reviewed, ERAS, Consent, Note Completion Geoff Moise (Resident)) (Signed 02-Jun-2022 07:21) Authored: History & Physical Reviewed, ERAS, Consent, Note Completion Last Updated: 02-Jun-2022 07:26 by Edison Evans) [facility] History of Present illness Narrative 01-26-2017 Note Date & Type Note Facility 01-26-2017 History of Present illness Narrative 61 yo woman referred by Dr. Pena for evaluation of oropharyngeal papillomas. She first noticed this 5-6 years ago. had right sided tonsillectomy for redundant tissue prior to that. May have slowly grown but not causing any symptoms. No pain, no trouble breathing; no bleeding. This was biopsied showing no malignancy. no bleeding disorders, no cardiac problems.05-12-22 FU: no new complaints, some right sided nasal congestion off an on. no pain06-23-22 post-op: s/p removal of oropharyngeal papilloma. minimal pain, no [id number] FU: doing well, no complaints today [facility] Work Phone: History of Present illness Narrative 05-13-2016 Note Date & Type Note Facility 05-13-2016 History of Present illness Narrative 61 [address] woman referred by Dr. Pena for evaluation of oropharyngeal papillomas. She first noticed this 5-6 years ago. had right sided tonsillectomy for redundant tissue prior to that. May have slowly grown but not causing any symptoms. No pain, no trouble breathing; no bleeding. This was biopsied showing no malignancy. no bleeding disorders, no cardiac problems.05-12-22 FU: no new complaints, some right sided nasal congestion off an on. no pain [facility] [address] Work Phone: History of Present illness Narrative 12-31-2015 Note Date & Type Note Facility 12-31-2015 History of Present illness Narrative 61 yo woman referred by Dr. Pena for evaluation of oropharyngeal papillomas. She first noticed this 5-6 years ago. had right sided tonsillectomy for redundant tissue prior to that. May have slowly grown but not causing any symptoms. No pain, no trouble breathing; no bleeding. This was biopsied showing no malignancy. no bleeding disorders, no cardiac problems. TV-Zxpygtwursotvu-Emxmjjjq Work Phone: History of Present illness Narrative 12-31-2015 Note Date & Type Note Facility 12-31-2015 History of Present illness Narrative 61 yo woman referred by Dr. Pena for evaluation of oropharyngeal papillomas. She first noticed this 5-6 years ago. had right sided tonsillectomy for redundant tissue prior to that. May have slowly grown but not causing any symptoms. No pain, no trouble breathing; no bleeding. This was biopsied showing no malignancy. no bleeding disorders, no cardiac problems. 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 upfollow up Summary Purpose Family History No Family History Records FoundNo Family History Records FoundNo Family History Records FoundNo Family History Records Found Advance Directives No Advanced Directives Records FoundDocuments on File Type Date Recorded Patient Transition Manager Expl anation Healthcare Power of Atty 06/02/2022 Living Will 06/02/2022 Additional Source Comments INFORMATION SOURCE (unrecogn ized section and content) DATE CREATED AUTHOR AUTHOR'S ORGANIZ ATION 01/26/2023 [employer] DATE CREATED AUTHOR AUTHOR'S ORGANIZ ATION 02/13/2023 [facility] DATE CREATED AUTHOR AUTHOR'S ORGANIZ ATION 10/07/2023 [facility] Reason for Visit (unrecogniz ed section and content) Care Teams (unrecognized sec tion and content) FOR RECORDS PERTAINING TO PATIENTS WHO ARE OR HAVE BEEN ENROLLED IN A CHEMICAL DEPENDENCY/SUBSTANCEABUSE PROGRAM, SOME INFORMATION MAY BE OMITTED. This clinical summary was aggregated from multiple sources. Caution should be exercised in using it in the provision of clinical care. This summary normalizes information from multiple sources, and as a consequence, information in this document may materially change the coding, format and clinical context of patient data. In addition, data may be omitted in some cases. CLINICAL DECISIONS SHOULD BE BASED ON THE PRIMARY CLINICAL RECORDS. [facility] [employer] [facility]. provides no warranty or guarantee of the accuracy or completeness of information in this document.
[2023-12-07 07:33] LABS: AST(SGOT) 19 U/L (15-37); Alanine Aminotransfer ALT/SGPT 21 U/L (13-56); Albumin, Serum 3.8 g/dL (3.2-5.0); Alkaline Phosphatase 93 U/L (45-117); Anion Gap 5 (5-15); BUN 18 mg/dL (7-18); BUN/Creat Ratio 21.9 RATIO (10-20); Calcium,Total 9.7 mg/dL (8.5-10.1); Chloride 107 mmol/L (98-107); Cholesterol 176 mg/dL (200); Creatinine, Serum 0.82 mg/dL (0.55-1.02); EST Glomerular Filtration Rate 74 mL/min (>60); Est Glom Filt Rate - Afr Amer 90 mL/min (>60); Globulin 3.8 g/dL (2.2-4.2); Glucose 117 mg/dL (74-106); High Density Lipoprotein 56 mg/dL; Potassium 3.9 mmol/L (3.5-5.1); Protein, Total 7.6 g/dL (6.4-8.2); Sodium Level 140 mmol/L (136-145); Triglycerides 177 mg/dL; Very Low Density Lipoprotein 35 mg/dL (5-40)
[2023-12-07 08:32] LABS: Vitamin D,25 Hydroxy 80.9 ng/mL
== END | disposition home or self-care (01) ==
LOC: LAB 06:06
PROVIDERS: PCP Family Medicine; Referring Provider Family Medicine; Visit Provider Family Medicine
DX: E55.9 Vitamin D deficiency, unspecified (principal); E78.5 Hyperlipidemia, unspecified
CPT/HCPCS: 36415; 80053; 80061; 82306

== ENCOUNTER → 2024-06-18 | Outpatient (CLI) | payer MEDICARE, OTHER, SELFPAY ==
[2024-06-18 10:15] LABS: ALB/GLOB Ratio 1.1 RATIO (0.9-2.4); AST(SGOT) 28 U/L (15-37); Alanine Aminotransfer ALT/SGPT 25 U/L (13-56); Albumin, Serum 3.7 g/dL (3.2-5.0); Alkaline Phosphatase 94 U/L (45-117); Anion Gap 6 (5-15); BUN 19 mg/dL (7-18); BUN/Creat Ratio 23.6 RATIO (10-20); Calcium,Total 9.2 mg/dL (8.5-10.1); Chloride 112 mmol/L (98-107); Cholesterol 156 mg/dL (200); EST Glomerular Filtration Rate 76 mL/min (>60); Est Glom Filt Rate - Afr Amer 92 mL/min (>60); Globulin 3.5 g/dL (2.2-4.2); Glucose 124 mg/dL (74-106); High Density Lipoprotein 57 mg/dL; Protein, Total 7.2 g/dL (6.4-8.2); Sodium Level 142 mmol/L (136-145); Triglycerides 96 mg/dL; Very Low Density Lipoprotein 19 mg/dL (5-40)
[2024-06-20 08:01] LABS: Vitamin D,25 Hydroxy 60.4 ng/mL
== END | disposition home or self-care (01) ==
LOC: LAB 08:26
PROVIDERS: PCP Family Medicine; Referring Provider Family Medicine; Visit Provider Family Medicine
DX: E78.5 Hyperlipidemia, unspecified (principal); E55.9 Vitamin D deficiency, unspecified
CPT/HCPCS: 36415; 80053; 80061; 82306

== ENCOUNTER → 2024-06-27 | Outpatient (CLI) | payer MEDICARE, OTHER, SELFPAY ==
--- NOTE | 2024-06-27 07:47 | BI_ITS ---
MAMMOGRAPHY - BILATERAL SCREENING REASON FOR EXAM: Female, 63 years old. Routine annual screening examination. PERTINENT HISTORY: Non-contributory. TECHNIQUE: Digital bilateral breast samaria (3D mammographic acquisition) in the CC and MLO projections. 2-D mediolateral oblique (MLO) and craniocaudad (CC) views of both breasts were obtained. CAD: Full Field Digital Mammography with Computer Added Detection was performed. COMPARISON: Comparison is made with prior study June 22, 2023 and June 16, 2022. FINDINGS: Breast Composition: The breasts are heterogeneously dense, which may obscure small masses. There are no dominant masses or suspicious calcifications. Stable small benign-appearing bilateral axillary lymph nodes. No other significant abnormalities are identified. There has been no significant change since the prior study. BI/SCRN MAMM (CAD)W/SAMARIA BILAT IMPRESSION: Stable bilateral screening mammogram. Yearly follow-up mammogram recommended. (A) ASSESSMENT CATEGORY: BIRADS Category 2: Benign. A letter regarding these results will be sent to the patient by the facility within 30 days. Approximately 10% of breast cancers are not detected by mammography. A normal mammogram should not delay biopsy of a clinically suspicious abnormality. [id number] Electronically Signed: Chad Teixeira MD at 9:00 EDT ,
== END | disposition home or self-care (01) ==
LOC: OPBI 07:46
PROVIDERS: PCP Family Medicine; Referring Provider Nurse Practitioner Women's Health; Visit Provider Nurse Practitioner Women's Health
DX: Z12.31 Encounter for screening mammogram for malignant neoplasm of breast (principal)
CPT/HCPCS: 77063; 77067

== ENCOUNTER → 2024-12-12 | Outpatient (CLI) | payer MEDICARE, OTHER, SELFPAY ==
[2024-12-12 16:07] LABS: Cholesterol 170 mg/dL (200); High Density Lipoprotein 55 mg/dL; Triglycerides 124 mg/dL; Very Low Density Lipoprotein 25 mg/dL (5-40)
[2024-12-12 22:55] LABS: Anion Gap 6 (5-15); BUN 17 mg/dL (7-18); BUN/Creat Ratio 22.9 RATIO (10-20); Calcium,Total 9.3 mg/dL (8.5-10.1); Chloride 110 mmol/L (98-107); Creatinine, Serum 0.74 mg/dL (0.55-1.02); EST Glomerular Filtration Rate 83 mL/min (>60); Est Glom Filt Rate - Afr Amer 101 mL/min (>60); Glucose 98 mg/dL (74-106); Potassium 4.1 mmol/L (3.5-5.1); Sodium Level 141 mmol/L (136-145)
[2024-12-15 12:08] LABS: Vitamin D 1,25-Dihydroxy 67.8 pg/mL (24.8-81.5)
== END | disposition home or self-care (01) ==
PROVIDERS: Family Medicine; PCP Family Medicine; Referring Provider Family Medicine; Visit Provider Family Medicine
DX: E78.5 Hyperlipidemia, unspecified (principal); E55.9 Vitamin D deficiency, unspecified
CPT/HCPCS: 36415; 80048; 80061; 82652

== ENCOUNTER → 2025-06-26 | Outpatient (CLI) | payer MEDICARE, OTHER, SELFPAY ==
[2025-06-26 11:14] LABS: AST(SGOT) 20 U/L (<=31); Alanine Aminotransfer ALT/SGPT 16 U/L (<=34); Albumin, Serum 4.2 g/dL (3.4-4.8); Alkaline Phosphatase 92 U/L (35-104); Anion Gap 13 (5-15); BUN 26 mg/dL (4-19); BUN/Creat Ratio 30.8 RATIO (10-20); Calcium,Total 9.7 mg/dL (7.6-11.0); Carbon Dioxide 21.6 mmol/L (21.0-32.0); Chloride 104 mmol/L (98-108); Cholesterol 158 mg/dL (<=200); Globulin 2.8 g/dL (2.2-4.2); Glucose 119 mg/dL (70-99); Low Density Lipoprotein Calc. 88 mg/dL; Potassium 4.5 mmol/L (3.3-5.1); Triglycerides 68 mg/dL; Very Low Density Lipoprotein 14 mg/dL (5-40); Vitamin D,25 Hydroxy 76.9 ng/mL (30-100); cholesterol:hdl ratio screen 2.79
== END | disposition home or self-care (01) ==
LOC: MFPLAB 08:06
PROVIDERS: PCP Family Medicine; Visit Provider Family Medicine
DX: E78.5 Hyperlipidemia, unspecified (principal); E55.9 Vitamin D deficiency, unspecified
CPT/HCPCS: 36415; 80053; 80061; 82306

== ENCOUNTER → 2025-07-10 | Outpatient (CLI) | payer MEDICARE, OTHER, SELFPAY ==
--- OUTSIDE RECORDS SUMMARY | 2025-07-10 07:43 | XMS RPT_ITS | CCD ---
Author Organization [facility] CliniSywv Care Team Providers Care Eyeglass Maker Name Role Phone Portillo Sanchez Unavailable [phone] Shamir Sanchez Primary Care Provider Dr. Shamir Sanchez Referring Provider Liban SIGN POSTER, GRETCHEN Frankel Attending Provider Unavailable Unavailable Dr. Portillo Sanchez Primary Care Terri vailable Cristina, Dr. London Referring Unavailable Daniel, Dr. Portillo Flannery Primary Care Terri vailable Cristina, Dr. London Attending Unavailable Cristina, Dr. London Attending Unavailable Cristina, Dr. London Referring Unavailable Daniel, Dr. Portillo Flannery Primary Care Terri vailable Daniel, Dr. Portillo Flannery Primary Care Terri vailable Daniel, Dr. Portillo Flannery Referring Terri vailable Cristina, Dr. London Attending Unavailable Daniel, Dr. Portillo Flannery Primary Care Terri vailable Cristina, Dr. London Admitting Unavailable Cristina, Dr. London Referring Unavailable Cristina, Dr. London Attending Unavailable Daniel, Dr. Portillo Flannery Primary Care Terri vailable Cristina, Dr. London Attending Unavailable Daniel, Dr. Barksdale Primary Care Provider [phone] Dr. Shamir Sanchez Referring Provider Liban SIGN POSTERGRETCHEN Attending Provider Portillo Sanchez MD Primary Care Provide r Portillo Sanchez MD Primary Care Provide r EDISON EVANS Attending Unavailable PORTILLO SANCHEZ Primary Care Unavail able EDISON EVANS Attending Unavailable PORTILLO SANCHEZ Primary Care Unavail able Daniel URIBE, Dr. Castillo Primary Care Provider Dr. Portillo Sanchez MD Attending Provider Portillo Sanchez Referring Unavailable Portillo Sanchez Attending Unavailable Portillo Sanchez Primary Care Unavailable Portillo Sanchez Attending Unavailable Portillo Sanchez Primary Care Unavailable Allergies Allergy Classification Reported Allergen(s) Allergy Type Date of Onset Reaction(s) Facility (7 sources) Penicillins; Translations: [Penicillins] Allergy to drug (finding) 5 [facility] 3 Repository (8 sources) Penicillin G Drug Allergy 1 Other [facility] (3 sources) Estradiol / Norethindrone; Translations: [ESTRADIOL-NORE THINDRONE ACET] Drug Allergy 4 Other [facility] (2 sources) Penicillins Drug Intolerance 5 Swelling, Other, Unknown [facility] Work Phone: (1 source) Penicillin Drug Allergy 4 [facility] Repository Medications Current Medications Medication Drug Class(es) Dates Sig (Normalized) Sig (Original) atorvastatin 20 mg oral tablet (17 sources) HMG-CoA Reductase Inhibitor Start: 01-08-2021 take 1 tablet by mouth three times weekly Atorvastatin (Lipitor) 20 mg tablet Active 20 mg PO .COMPLEX June 11, 2021 12:00am 20 mg PO 3 times per week; Start: 01-08-2021 Atorvastatin C alcium 20 MG Oral Tablet Quantity: 30 Refills: 0 Ordered: 06-Feb-2021 DO Start : 08-Jan-2021 Active bifidobacterium animalis [id number] unt / lactobacillus acidophilus [id number] unt oral capsule (9 sources) L. acidophilus/B ifid. animalis 32 billion cell capsule Take by mouth. Active biotin 2.5 mg oral capsule (15 sources) Start: 12-28-2017 take 1 capsule by mouth once Biotin 2,500 mcg capsule Active 2500 ug PO ONCE December 28, 2017 1:00am Biotin 78732 MCG Oral Tablet Quantity: 0 Refills: 0 Ordered: 30-Dec-2021 DO Active cholecalciferol 0.025 mg oral capsule (16 sources) Vitamin D Start: 06-05-2020 take 1 capsule by mouth twice daily Cholecalciferol (Vitamin D3) 25 mcg (1,000 unit) capsule Active 5000 U PO TWICE A DAY June 05, 2020 8:09am Start: 12-28-2017 End: 06-05-2020 take 1 capsule by mouth once Cholecalciferol (Vitamin D3) 1,000 unit capsule Discontinued 1000 U PO ONCE December 28, 2017 1:00am June 05, 2020 8:10am estradiol 0.1 mg/ml vaginal cream (20 sources) Estrogen Start: 03-11-2022 End: 06-27-2024 Estradiol (Estrace) 0.01 % (0.1 mg/gram) cream Active 0 VAGINAL .COMPLEX 42.5 2 June 27, 2024 8:29am pea sized amount VAGINAL twice a week; Start: 03-11-2022 Estradiol (Est race) 0.01 % (0.1 mg/gram) cream Active 0 VAGINAL .COMPLEX 42.5 March 11, 2022 1:41pm pea sized amount VAGINAL twice a week; Start: 06-05-2020 End: 03-11-2022 Estradiol (Estrace) 0.01 % ( 0.1 mg/gram) cream Discontinued 0 VAGINAL .COMPLEX 42.5 2 June 05, 2020 12:00am March 11, 2022 2:41pm pea sized amount VAGINAL every other day X 4 weeks then twice a week; Start: 06-05-2020 End: 03-11-2022 Estradiol (Estrace) 0.01 % ( 0.1 mg/gram) cream Discontinued 0 VAGINAL .COMPLEX 42.5 June 04, 2020 11:00pm March 11, 2022 1:41pm pea sized amount VAGINAL every other day X 4 weeks then twice a week; Estradiol 0.1 MG /GM Vaginal Cream Quantity: 0 Refills: 0 Ordered: 30-Dec-2021 DO Active folic acid 0.4 mg / vitamin b12 0.5 mg oral tablet (8 sources) Vitamin B12 Start: 12-28-2017 Vitamin B12-Fo lic Acid 500-400 mcg tablet Active 1 {tbl} PO daily December 28, 2017 1:00am lansoprazole 30 mg delayed release oral capsule (16 sources) Proton Pump Inhibitor Start: 06-16-2022 Lansoprazole (Prevacid) 30 mg capsule,delayed release(DR/EC) Active 15 mg PO DAILY June 16, 2022 12:00am lansoprazole (Pr evacid) [address] capsule Take 1 capsule (15 mg) by mouth. Active Lansoprazole 15 MG Oral Capsule Delayed Release Quantity: 0 Refills: 0 Ordered: 30-Dec-2021 DO Active lisinopril 5 mg oral tablet (17 sources) Angiotensin Converting Enzyme Inhibitor Start: 12-31-2020 take 1 tablet by mouth once daily Lisinopril 5 mg tablet Active 5 mg PO DAILY June 11, 2021 12:00am Start: 12-31-2020 Lisinopril 5 M G Oral Tablet Quantity: 30 Refills: 0 Ordered: 05-Feb-2021 DO Start : 31-Dec-2020 Active loratadine 10 mg oral tablet (7 sources) Start: 06-16-2022 take 1 tablet by mouth once daily Loratadine (Claritin) 10 mg tablet Active 10 mg PO DAILY June 16, 2022 12:00am Ai-Sq-Xg-Vit C-Yhlad-Prlm-Zeax (Ocuvite Eye Plus Multi) 200-15-150 mcg tablet (8 sources) Start: 01-24-2019 Sb-Zh-Fl-Vit K-Zinot-Tpcw-Zeax (Ocuvite Eye Plus Multi) 200-15-150 mcg tablet Active 2 {tbl} PO DAILY January 24, 2019 12:00am Start: 01-24-2019 take 2 tablets by [place] once daily Mw-Eg-Dq-Vit T-Ozctp-Kmhh-Zeax (Ocuvite Eye Plus Multi) 200-15-150 mcg tablet Active 2 TABLET PO DAILY January 23, 2019 11:00pm Start: 01-24-2019 take 2 tablets by [place] once daily Nx-Gh-Id-Vit L-Cuiqd-Afok-Zeax (Ocuvite Eye Plus Multi) 200-15-150 mcg tablet Active 2 TABLET PO DAILY January 24, 2019 12:00am omega-3 fatty acids-fish oil 360-1,200 mg capsule (2 sources) omega-3 fatty ac ids-fish oil 360-1,200 mg capsule Take 2 capsules (2,400 mg) by mouth. Active omega-3 fatty ac ids-fish oil 360-1,200 mg capsule Take 2 capsules (2,400 mg) by mouth. 0 Active tacrolimus 0.001 mg/mg topical ointment (2 sources) Calcineurin Inhibitor Immunosuppressant Start: 03-19-2023 tacrolimus (Protopic) 0.1 % ointment Apply topically. 03/19/2023 Active vitamin b12 1 mg/ml oral solution (2 sources) Vitamin B12 cyanocobalamin, vitamin B-12, 1,000 mcg/mL drops Take by mouth. Active Completed/Discontinued Medications Medication Drug Class(es) Dates [...] oral solution (5 sources) alpha-Adrenergic Agonist, Uncompetitive B-mktuuo-F-aspartat e Receptor Antagonist, Sigma-1 Agonist Start: 04-22-2022 Pseudoeph-Bromphe n-DM 30-2-10 MG/5ML Oral Syrup Quantity: 240 Refills: 0 Ordered: 22-Apr-2022 DO Start : 22-Apr-2022 Active Mfnjkat-Orv-Irj D7-E7-Skogawsl (Calcium Citrate + D With Mag) 954-77-9-125 uv-tr-zo-unit tablet (1 source) Start: 12-28-2017 End: 01-24-2019 Cpwapoh-Xrr-Ujb Y9-V4-Otvzgukv (Calcium Citrate + D With Mag) 663-61-0-125 cz-pg-bv-unit tablet Discontinued 1 {tbl} PO TWICE A DAY December 28, 2017 1:00am January 24, 2019 8:06am aikvkwa-ziw-kjv Q3-J2-kwtddyxd 250 mg-40 mg-5 mg-125 unit tablet (7 sources) Start: 12-28-2017 End: 01-24-2019 take 1 tablet by mouth twice daily rtzypor-umg-gog N2-O7-tjknwhrj 250 mg-40 mg-5 mg-125 unit tablet Discontinued 1 TABLET PO TWICE A DAY December 28, 2017 12:00am January 24, 2019 7:06am Start: 12-28-2017 End: 01-24-2019 take 1 tablet by mouth twice daily krxlvas-nlm-qle T7-J7-nthvmucx 250 mg-40 mg-5 mg-125 unit tablet Discontinued 1 TABLET PO TWICE A DAY December 28, 2017 1:00am January 24, 2019 8:06am Garlic (8 sources) Non-Standardized Food Allergenic Extract Start: 12-28-2017 End: 06-05-2020 take 1 capsule by mouth after mealtime Garlic 1,000 mg capsule Discontinued 1000 mg PO after meals December 28, 2017 1:00am June 05, 2020 8:10am Start: 12-28-2017 End: 06-05-2020 take 1000 mg by mouth after mealtime Garlic Discontinued 1000 MG PO after meals December 28, 2017 12:00am June 05, 2020 7:10am Start: 12-28-2017 End: 06-05-2020 take 1000 mg by mouth after mealtime Garlic Discontinued 1000 MG PO after meals December 28, 2017 1:00am June 05, 2020 8:10am Lactobacillus Combination No.8 (Adult Probiotic) 3 billion cell capsule (8 sources) Start: 01-24-2019 End: 06-05-2020 take 3 capsules by mouth once daily Lactobacillus Combination No.8 (Adult Probiotic) 3 billion cell capsule Discontinued 3000 NMA PO DAILY January 24, 2019 12:00am June 05, 2020 8:10am Start: 01-24-2019 End: 06-05-2020 take 3 capsules by mouth once daily Lactobacillus Combination No.8 (Adult Probiotic) 3 billion cell capsule Discontinued 3000 MMU CELLS PO DAILY January 23, 2019 11:00pm June 05, 2020 7:10am Start: 01-24-2019 End: 06-05-2020 take 3 capsules by mouth once daily Lactobacillus Combination No.8 (Adult Probiotic) 3 billion cell capsule Discontinued 3000 MMU CELLS PO DAILY January 24, 2019 12:00am June 05, 2020 8:10am lutein 6 mg oral capsule (8 sources) Start: 12-28-2017 End: 01-24-2019 take 1 capsule by mouth once daily Lutein 6 mg capsule Discontinued 6 mg PO daily December 28, 2017 1:00am January 24, 2019 8:06am [place]-3 Fatty Acids (Fish Oil Concentrate) 1,000 mg capsule (8 sources) Start: 01-24-2019 End: 06-11-2021 take 1 capsule by mouth once daily [place]-3 Fatty Acids (Fish Oil Concentrate) 1,000 mg capsule Discontinued 1000 mg PO DAILY January 24, 2019 12:00am June 11, 2021 8:49am Start: 01-24-2019 End: 06-11-2021 take 1 capsule by mouth once daily [place]-3 Fatty Acids (Fish Oil Concentrate) 1,000 mg capsule Discontinued 1000 MG PO DAILY January 23, 2019 11:00pm June 11, 2021 7:49am Start: 01-24-2019 End: 06-11-2021 take 1 capsule by mouth once daily [place]-3 Fatty Acids (Fish Oil Concentrate) 1,000 mg capsule Discontinued 1000 MG PO DAILY January 24, 2019 12:00am June 11, 2021 8:49am orlistat 60 mg oral capsule (8 sources) Intestinal Lipase Inhibitor Start: 12-28-2017 End: 01-24-2019 take 1 capsule by mouth three times daily Orlistat (Angel) 60 mg capsule Discontinued 60 mg PO THREE TIMES A DAY December 28, 2017 1:00am January 24, 2019 8:06am polyethylene glycol 3350 66788 mg powder for oral solution (3 sources) Osmotic Laxative Start: 06-02-2022 Polyethylene Glycol 3350 17 GM/SCOOP Oral Powder MIX 17 GM IN LIQUID AND DRINK ONCE DAILY Quantity: 238 Refills: 0 Ordered: 02-Jun-2022 DO Start : 02-Jun-2022 Active 24 hr venlafaxine 37.5 mg extended release oral capsule (20 sources) Serotonin and Norepinephrine Reuptake Inhibitor Start: 12-31-2020 take 1 capsule by mouth every twenty-four hours Venlafaxine HCl ER 75 MG Oral Capsule Extended Release 24 Hour Quantity: 30 Refills: 0 Ordered: 05-Mar-2021 DO Start : 31-Dec-2020 Active Start: 11-04-2016 End: 08-16-2023 take 1 capsule by mouth once daily Venlafaxine (Effexor Xr) 37.5 mg capsule,extended release 24hr Discontinued 37.5 mg PO daily 90 3 October 28, 2017 1:00am January 24, 2019 8:06am Vitamin B12 TABS (7 sources) Vitamin B12 TABS Quantity: 0 Refills: 0 Ordered: 30-Dec-2021 DO Active Vitamin D3 TABS (7 sources) Vitamin D3 TABS Quantity: 0 Refills: 0 Ordered: 30-Dec-2021 DO Active Problems Active Problems Problem Classification Problem Date Documented Da te Episodic/Chronic Acute and chronic tonsillitis (1 source) Mass of palatine tonsil; Translations: [Other chronic diseases of tonsils and adenoids] 10-05-2023 Chronic Anxiety disorders (4 sources) Mixed anxiety and depressive disorder; Translations: [Anxiety disorder, unspecified] 06-22-2023 Chronic Comment on above: effexor per PCP Disorders of lipid metabolism (2 sources) Hyperlipidemia, unspecified; Translations: [Hyperlipidemia, unspecified] Onset: 06-02-2022 Chronic Essential hypertension (1 source) Essential (primary) hypertension; Translations: [Essential (primary) hypertension] Onset: 06-02-2022 Chronic Menopausal disorders (11 sources) Atrophic vaginitis; Translations: [Postmenopausal atrophic vaginitis] Chronic Comment on above: estradiol cream Mood disorders (1 source) Mood disorders; Translations: [Depression, unspecified] Onset: 06-02-2022 Other and unspecified benign neoplasm (8 sources) Benign neoplasm of oropharynx; Translations: [Benign neoplasm of other parts of oropharynx] 04-04-2024 Episodic Other gastrointestinal disorders (1 source) Irritable bowel syndrome without diarrhea; Translations: [Irritable bowel syndrome without diarrhea] Onset: 06-02-2022 Chronic Viral infection (10 sources) Human papilloma virus infection; Translations: [Papillomavirus as the cause of diseases classified elsewhere] Episodic Comment on above: throat, mass removed . Neg pap and HPV 2021 Past or Other Problems Problem Classification Problem Date Documented Da te Episodic/Chronic Other aftercare (1 source) Other mcc (current) drug therapy; Translations: [Other technician terminal and repeater (current) drug therapy] Onset: 05-27-2022 Episodic Other and unspecified benign neoplasm (2 sources) Benign neoplasm of other parts of oropharynx; Translations: [Benign neoplasm of other parts of oropharynx] Onset: 06-02-2022 Episodic Unclassified (2 sources) Onset: 10-05-2023 Resolved: 04-04-2024 10-05-2023 Results Test Name Value Interpretation Reference Range Facility Anion gap in Serum or Plasma Ordered By: Portillo Sanchez on 06-26-2025 Anion gap [Moles/Vol] 13 mmol/L 03-30 [facility] BUN/creatinine ratioOrdered By: Portillo Sanchez on 06-26-2025 Urea nitrogen/Creatinine [Mass ratio] 30.8 mg/mg High 09-04 [facility] Bilirubin, totalOrdered By: Portillo Sanchez on 06-26-2025 Bilirubin [Mass/Vol] 0.51 mg/dL 0.00-1.30 [facility] Calculated very low density lipoprotein (VLDL) cholesterol measurementOrdered By: Portillo Sanchez on 06-26-2025 Calculated very low density lipoprotein (VLDL) cholesterol measurement 14 mg/dL 5-40 [facility] Carbon dioxide, total [Moles /volume] in Central venous bloodOrdered By: Portillo Sanchez on 06-26-2025 CO2 [Moles/Vol] 21.6 mmol/L 21.0-32.0 [facility] Chloride assayOrdered By: Francisco Sanchez on 06-26-2025 Chloride [Moles/Vol] 104 mmol/L 98-108 [facility] Comprehensive Metabolic Prof ilon 06-26-2025 Albumin [Mass/Vol] 4.2 g/dL Normal 3.4-4.8 [facility] Comment on above: Order Comment: Order Date: 06/14/25 Order Info: [id number] - CMP Order Info: [id number] - LIPID Performed By: #### L [id number], L500.4100 #### [facility] [place], [address] Albumin/Globulin [Mass ratio] 1.5 {ratio} Normal 0.9-2.4 [facility] Comment on above: Order Comment: Order Date: 06/14/25 Order Info: [id number] - CMP Order Info: [id number] - LIPID Performed By: #### L 500.4050, L500.4100 #### [facility] [address] [place], [address] ALK PHOS 92 U/L Normal 35-104 [facility] Comment on above: Order Comment: Order Date: 06/14/25 Order Info: [id number] - CMP Order Info: [id number] - LIPID Performed By: #### L 500.4050, L500.4100 #### [facility] [address] [place], [address] ALT [Catalytic activity/Vol] 16 U/L Normal <=34 [facility] Comment on above: Order Comment: Order Date: 06/14/25 Order Info: [id number] - CMP Order Info: [id number] - LIPID Performed By: #### L 500.4050, L500.4100 #### [facility] [address] [place], [address] AST [Catalytic activity/Vol] 20 U/L Normal <=31 [facility] Comment on above: Order Comment: Order Date: 06/14/25 Order Info: [id number] - CMP Order Info: [id number] - LIPID Performed By: #### L 500.4050, L500.4100 #### [facility] [address] [place], [address] Bilirubin [Mass/Vol] 0.51 mg/dL Normal 0.00-1.30 [facility] Comment on above: Order Comment: Order Date: 06/14/25 Order Info: [id number] - CMP Order Info: [id number] - LIPID Performed By: #### L 500.4050, L500.4100 #### [facility] [address] [place], [address] BUN/CRE 30.8 RATIO High 10-20 [facility] Comment on above: Order Comment: Order Date: 06/14/25 Order Info: [id number] - CMP Order Info: [id number] - LIPID Performed By: #### L 500.4050, L500.4100 #### [facility] [address] [place], [address] Calcium [Mass/Vol] 9.7 mg/dL Normal 7.6-11.0 [facility] Comment on above: Order Comment: Order Date: 06/14/25 Order Info: [id number] - CMP Order Info: [id number] - LIPID Performed By: #### L 500.4050, [id number] #### [facility] [address] [place], [address] Chloride [Moles/Vol] 104 mmol/L Normal 98-108 [facility] Comment on above: Order Comment: Order Date: 06/14/25 Order Info: [id number] - CMP Order Info: [id number] - LIPID Performed By: #### L 500.4050, [id number] #### [facility] [address] [place], [address] CO2 [Moles/Vol] 21.6 mmol/L Normal 21.0-32.0 [facility] Comment on above: Order Comment: Order Date: 06/14/25 Order Info: [id number] - CMP Order Info: [id number] - LIPID Performed By: #### L 500.4050, L500.4100 #### [facility] [address] [place], [address] Creatinine [Mass/Vol] 0.84 mg/dL Normal 0.70-1.20 [facility] Comment on above: Order Comment: Order Date: 06/14/25 Order Info: [id number] - CMP Order Info: [id number] - LIPID Performed By: #### L 500.4050, [id number] #### [facility] [address] [place], [address] GAP 13 Normal 5-15 [facility] Comment on above: Order Comment: Order Date: 06/14/25 Order Info: [id number] - CMP Order Info: [id number] - LIPID Performed By: #### L 500.4050, [id number] #### [facility] [address] [place], [address] GFR/1.73 sq M.predicted among non-blacks MDRD (S/P/Bld) [Vol rate/Area] 76 mL/min/{1.73_m2} Normal >60 [facility] Comment on above: Order Comment: Order Date: 06/14/25 Order Info: [id number] - CMP Order Info: [id number] - LIPID Result Comment: mL/m in/1.73m2 CKD-EPI Creatinine Equation (2020) Performed By: #### L 500.4050, L500.4100 #### [facility] [address] [place], [address] Globulin (S) [Mass/Vol] 2.8 g/dL Normal 2.2-4.2 [facility] Comment on above: Order Comment: Order Date: 06/14/25 Order Info: 07 - CMP Order Info: [id number] - LIPID Performed By: #### L 500.4050, [id number] #### [facility] [address] [place], [address] Glucose [Mass/Vol] 119 mg/dL High 70-99 [facility] Comment on above: Order Comment: Order Date: 06/14/25 Order Info: [id number] - CMP Order Info: [id number] - LIPID Performed By: #### L 500.4050, [id number] #### [facility] [address] [place], [address] Potassium [Moles/Vol] 4.5 mmol/L Normal 3.3-5.1 [facility] Comment on above: Order Comment: Order Date: 06/14/25 Order Info: [id number] - CMP Order Info: [id number] - LIPID Performed By: #### L 500.4050, [id number] #### [facility] [address] [place], [address] Sodium [Moles/Vol] 138 mmol/L Normal 133-145 [facility] Comment on above: Order Comment: Order Date: 06/14/25 Order Info: [id number] - CMP Order Info: [id number] - LIPID Performed By: #### L 500.4050, L500.4100 #### [facility] [address] [place], [address] T PROT 7.0 g/dL Normal 5.9-8.4 [facility] Comment on above: Order Comment: Order Date: 06/14/25 Order Info: [id number] - CMP Order Info: [id number] - LIPID Performed By: #### L 500.4050, L500.4100 #### [facility] [address] [place], [address] Urea nitrogen [Mass/Vol] 26 mg/dL High 4-19 [facility] Comment on above: Order Comment: Order Date: 06/14/25 Order Info: [id number] - CMP Order Info: [id number] - LIPID Performed By: #### L 500.4050, [id number] #### [facility] [address] [place], [address] Glomerular filtration rate ( GFR) estimation/1.73 sq m using serum, plasma, or whole bOrdered By: Portillo Sanchez on 06-26-2025 GFR/1.73 sq M.predicted among non-blacks MDRD (S/P/Bld) [Vol rate/Area] 76 mL/min/{1.73_m2} >60 [facility] Comment on above: mL/min/1.73m2 CKD-EP I Creatinine Equation (2020) LDL calc ser/plasOrdered By: Portillo Sanchez on 06-26-2025 Cholesterol in LDL [Mass/Vol] 88 mg/dL [facility] Comment on above: Lyihagzqst=559-378 m g/dL & Higher Nvnu=251 mg/dL or greaterFriedwald Equation for LDL-C Laboratory - Chemistry and C hemistry - challengeOrdered By: Portillo Sanchez on 06-26-2025 AST [Catalytic activity/Vol] 20 U/L <32 [facility] Lipid Profileon 06-26-2025 CHOL:HDL 2.79 Normal [facility] Comment on above: Order Comment: Order Date: 06/14/25 Order Info: [id number] - CMP Order Info: [id number] - LIPID Performed By: #### L 500.4050, L500.4100 #### [facility] [address] [place], [place], [id number] (790) Cholesterol [Mass/Vol] 158 mg/dL Normal <=200 [facility] Comment on above: Order Comment: Order Date: 06/14/25 Order Info: [id number] - CMP Order Info: [id number] - LIPID Result Comment: Chol esterol level, Desirable <200 mg/dL Borderline high cholesterol 200-239 mg/dL High cholesterol >=240 mg/dL Recommendations of the NCEP Adult Treatment Panel for the following risk-cutoff thresholds for the [place] population. Performed By: #### L 500.4050, L500.4100 #### [facility] [address] [place], [place], [address] Cholesterol in HDL [Mass/Vol] 57 mg/dL Normal [facility] Comment on above: Order Comment: Order Date: 06/14/25 Order Info: [id number] - CMP Order Info: [id number] - LIPID Result Comment: Elizabeth onal Cholesterol Education Program (NCEP) guidelines: <40 mg/dL: Low HDL-cholesterol (major risk factor for CHD) >= 60 mg/dL: High HDL-cholesterol (negative risk factor for CHD) HDL-cholesterol is affected by a number of factors, e.g. smoking, exercise, hormones, sex and age. Performed By: #### L 500.4050, L500.4100 #### [facility] [address] [place], [place], [address] Cholesterol in LDL [Mass/Vol] 88 mg/dL Normal [facility] Comment on above: Order Comment: Order Date: 06/14/25 Order Info: [id number] - CMP Order Info: [id number] - LIPID Result Comment: Bord xtobgu=053-320 mg/dL Higher Gxty=885 mg/dL or greater Friedwald Equation for LDL-C Performed By: #### L 500.4050, L500.4100 #### [facility] [address] [place], [address] Cholesterol in VLDL [Mass/Vol] 14 mg/dL Normal 5-40 [facility] Comment on above: Order Comment: Order Date: 06/14/25 Order Info: [id number] - CMP Order Info: [id number] - LIPID Performed By: #### L 500.4050, [id number] #### [facility] [address] [place], [address] Triglyceride [Mass/Vol] 68 mg/dL Normal [facility] Comment on above: Order Comment: Order Date: 06/14/25 Order Info: [id number] - CMP Order Info: [id number] - LIPID Result Comment: The drugs N-Acetylcysteine and Metamizole may falsely depress this assay. Normal range: <150 mg/dL Borderline High: 150-199 mg/dL High: 200-499 mg/dL Very High: >500 mg/dL Performed By: #### L 500.4050, L500.4100 #### [facility] [address] [place], [place], [address] Potassium measurement (mass/ volume)Ordered By: Portillo Sanchez on 06-26-2025 Potassium (Unsp spec) [Mass/Vol] 4.5 mmol/L 3.3-5.1 [facility] Screening total cholesterol/ high density lipoprotein (HDL) cholesterol ratioOrdered By: Portillo Sanchez on 06-26-2025 Cholesterol.total/Chol esterol in HDL [Mass ratio] 2.79 {ratio} [facility] Serum creatinine measurement (mass/volume)Ordered By: Portillo Sanchez on 06-26-2025 Creatinine [Mass/Vol] 0.84 mg/dL 0.70-1.20 [facility] Serum globulin measurementOr dered By: Portillo Sanchez on 06-26-2025 Globulin (S) [Mass/Vol] 2.8 g/dL 2.2-4.2 [facility] Serum glucose measurement (m ass/volume)Ordered By: Portillo Sanchez on 06-26-2025 Glucose [Mass/Vol] 119 mg/dL High 70-99 [facility] Serum or plasma alanine sewell otransferase (ALT) measurementOrdered By: Portillo Sanchez on 06-26-2025 ALT [Catalytic activity/Vol] 16 U/L <35 [facility] Serum or plasma albumin luis urement (mass/volume)Ordered By: Portillo Sanchez on 06-26-2025 Albumin [Mass/Vol] 4.2 g/dL 3.4-4.8 [facility] Serum or plasma albumin/glob ulin mass ratioOrdered By: Portillo Sanchez on 06-26-2025 Albumin/Globulin [Mass ratio] 1.5 {ratio} 0.9-2.4 [facility] Serum or plasma alkaline olaf sphatase measurementOrdered By: Portillo Sanchez on 06-26-2025 ALP [Catalytic activity/Vol] 92 U/L 35-104 [facility] Serum or plasma calcium luis urement (mass/volume)Ordered By: Portillo Sanchez on 06-26-2025 Calcium [Mass/Vol] 9.7 mg/dL 7.6-11.0 [facility] Serum or plasma cholesterol in HDL measurement (mass/volume)Ordered By: Portillo Sanchez on 06-26-2025 Cholesterol in HDL [Mass/Vol] 57 mg/dL >40 [facility] Comment on above: National Cholesterol Education Program (NCEP) guidelines:<40 mg/dL: Low HDL-cholesterol (major risk factor for CHD)>= 60 mg/dL: High HDL-cholesterol (negative risk factor for CHD)HDL-cholesterol is affected by a number of factors, e.g. smoking, exercise, hormones, sex and age. Serum or plasma cholesterol measurement (mass/volume)Ordered By: Portillo Sanchez on 06-26-2025 Cholesterol [Mass/Vol] 158 mg/dL <201 [facility] Comment on above: Cholesterol level, D esirable <200 mg/dLBorderline high cholesterol 200-239 mg/dLHigh cholesterol >=240 mg/dLRecommendations of the NCEP Adult Treatment Panel for the following risk-cutoff thresholds for the [place] population. Serum or plasma urea nitroge n measurement (mass/volume)Ordered By: Portillo Sanchez on 06-26-2025 Urea nitrogen [Mass/Vol] 26 mg/dL High 4-19 [facility] Sodium levelOrdered By: Laura Sanchez on 06-26-2025 Sodium [Moles/Vol] 138 mmol/L 133-145 [facility] Total proteinOrdered By: Modesto Sanchez on 06-26-2025 Protein [Mass/Vol] 7.0 g/dL 5.9-8.4 [facility] Triglycerides measurementOrd ered By: Portillo Sanchez on 06-26-2025 Triglyceride [Mass/Vol] 68 mg/dL <199 [facility] Comment on above: The drugs N-Acetylcy steine and Metamizole may falsely depress this assay. Normal range: <150 mg/dLBorderline High: 150-199 mg/dLHigh: 200-499 mg/dLVery High: >500 mg/dL Vitamin D,25 Hydroxyon 06-26 Vitamin D 25-OH 76.9 ng/mL Normal 30-100 [facility] Comment on above: Order Comment: Order Date: 06/14/25 Order Info: [id number] - CMP Order Info: [id number] - LIPID Result Comment: Dary min D Status Deficiency: <20 ng/mL (50nmol/L) Insufficiency: 20-30 ng/mL (50-75 nmol/L) Sufficiency: 30-100 ng/mL (75-250 nmol/L) Toxicity: >100 ng/mL (>250 nmol/L) Performed By: #### L 506.1001 #### [facility] [address] [place], [address] Vitamin D 1,25-Dihydroxyon 0 12-15-2024 VIT D 1,25 DIHY 67.8 pg/mL Normal 24.8-81.5 [facility] Comment on above: Order Comment: Order Date: 11/28/24 Order Info: [id number] - [id number] Result Comment: Perf ormed at: - [facility] [address] [id number] Senior Accountant Cpa: Veronica Ansari MD, Phone: [phone] Performed By: #### L 1460.0960 #### [facility] [address] [place], [address] Basic Metabolic Profile (BMP )on 12-12-2024 BUN/CRE 22.9 RATIO High 10-20 [facility] Comment on above: Order Comment: Order Date: 11/28/24 Order Info: [id number] - BMP Performed By: #### L 500.2500 #### [facility] [address] [place], [address] CA,Total 9.3 mg/dL Normal 8.5-10.1 [facility] Comment on above: Order Comment: Order Date: 11/28/24 Order Info: [id number] - BMP Performed By: #### L 500.2500 #### [facility] [address] [place], [address] Chloride [Moles/Vol] 110 mmol/L High 98-107 [facility] Comment on above: Order Comment: Order Date: 11/28/24 Order Info: [id number] - BMP Performed By: #### L 500.2500 #### [facility] [address] [place], [address] CO2 [Moles/Vol] 24.0 mmol/L Normal 21.0-32.0 [facility] Comment on above: Order Comment: Order Date: 11/28/24 Order Info: [id number] - BMP Performed By: #### L 500.2500 #### [facility] [address] [place], [address] Creatinine [Mass/Vol] 0.74 mg/dL Normal 0.55-1.02 [facility] Comment on above: Order Comment: Order Date: 11/28/24 Order Info: [id number] - BMP Result Comment: The validity of the calculated GFR GFRAA in patients over 70 years has not been determined. Clinical correlation is essential. Performed By: #### L 500.2500 #### [facility] [address] [place], [address] EST GFR - AA 101 mL/min Normal >60 [facility] Comment on above: Order Comment: Order Date: 11/28/24 Order Info: [id number] - BMP Result Comment: Afri can [place] GFR Calc Performed By: #### L 500.2500 #### [facility] [address] [place], [address] GAP 6 Normal 5-15 [facility] Comment on above: Order Comment: Order Date: 11/28/24 Order Info: [id number] - BMP Performed By: #### L 500.2500 #### [facility] [address] [place], [address] GFR/1.73 sq M.predicted among non-blacks MDRD (S/P/Bld) [Vol rate/Area] 83 mL/min/{1.73_m2} Normal >60 [facility] Comment on above: Order Comment: Order Date: 11/28/24 Order Info: [id number] - BMP Result Comment: Non- GFR Calc Performed By: #### L 500.2500 #### [facility] [address] [place], [address] Glucose [Mass/Vol] 98 mg/dL Normal 74-106 [facility] Comment on above: Order Comment: Order Date: 11/28/24 Order Info: [id number] - BMP Performed By: #### L 500.2500 #### [facility] [address] [place], [address] Potassium [Moles/Vol] 4.1 mmol/L Normal 3.5-5.1 [facility] Comment on above: Order Comment: Order Date: 11/28/24 Order Info: [id number] - BMP Performed By: #### L 500.2500 #### [facility] [address] [place], [address] Sodium [Moles/Vol] 141 mmol/L Normal 136-145 [facility] Comment on above: Order Comment: Order Date: 11/28/24 Order Info: [id number] - BMP Performed By: #### L 500.2500 #### [facility] [address] [place], [address] Urea nitrogen [Mass/Vol] 17 mg/dL Normal 7-18 [facility] Comment on above: Order Comment: Order Date: 11/28/24 Order Info: [id number] - BMP Performed By: #### L 500.2500 #### [facility] [address] [place], [address] Lipid Profileon 12-12-2024 Cholesterol [Mass/Vol] 170 mg/dL Normal 200 [facility] Comment on above: Order Comment: Order Date: 11/28/24 Order Info: [id number] - LIPID Result Comment: <200 mg/dL Desirable 200-240 mg/dL Borderline >240 mg/dL High Risk Performed By: #### L 500.4100 #### [facility] [address] [place], [address] Cholesterol in HDL [Mass/Vol] 55 mg/dL Normal [facility] Comment on above: Order Comment: Order Date: 11/28/24 Order Info: [id number] - LIPID Result Comment: The drugs N-Acetylcysteine and Metamizole may falsely depress this assay. Reference Range HDL <40 mg/dL Low HDL Cholesterol HDL >or= 60 mg/dL High HDL Cholesterol Performed By: #### L 500.4100 #### [facility] [address] [place], [address] Cholesterol in LDL [Mass/Vol] 90 mg/dL Normal 0-130 [facility] Comment on above: Order Comment: Order Date: 11/28/24 Order Info: [id number] - LIPID Performed By: #### L 500.4100 #### [facility] [address] [place], [address] Cholesterol in VLDL [Mass/Vol] 25 mg/dL Normal 5-40 [facility] Comment on above: Order Comment: Order Date: 11/28/24 Order Info: [id number] - LIPID Performed By: #### L 500.4100 #### [facility] [address] [place], [address] Triglyceride [Mass/Vol] 124 mg/dL Normal [facility] Comment on above: Order Comment: Order Date: 11/28/24 Order Info: [id number] - LIPID Result Comment: The drugs N-Acetylcysteine and Metamizole may falsely depress this assay. Serum Triglycerides Reference Interval Normal <150 mg/dL Borderline high 150 - 199 mg/dL High 200 - 499 mg/dL Very High > or = 500 mg/dL Performed By: #### L 500.4100 #### [facility] [address] [place], [address] Basophil percentageOrdered B y: Shamir Sanchez on 12-07-2023 Bilirubin [Mass/Vol] 0.50 mg/dL 0.20-1.00 [facility] Comment on above: For patients on eltr ombopag therapy, use of Dimension [place] TBIL is not recommended. Chloride [Moles/Vol] 107 mmol/L 98-107 [facility] Cholesterol [Mass/Vol] 176 mg/dL <200 [facility] Comment on above: <200 mg/dL Desirable 200-240 mg/dL Borderline >240 mg/dL High Risk Glucose [Mass/Vol] 117 mg/dL 74-106 [facility] Comment on above: Fasting Glucose resu lt from 100 to 125 mg/dL suggests IMPAIRED HOMEOSTASIS per A.D.A. criteria. Potassium [Moles/Vol] 3.9 mmol/L 3.5-5.1 [facility] Comment on above: Slight Hemolysis, Re sult may be falsely increased. Protein [Mass/Vol] 7.6 g/dL 6.4-8.2 [facility] Sodium [Moles/Vol] 140 mmol/L 136-145 [facility] Triglyceride [Mass/Vol] 177 mg/dL <199 [facility] Comment on above: The drugs N-Acetylcy steine and Metamizole may falsely depress this assay.Serum Triglycerides Reference Interval Normal <150 mg/dL Borderline high 150 - 199 mg/dL High 200 - 499 mg/dL Very High > or = 500 mg/dL High density lipoprotein (HD L) measurementOrdered By: Shamir Sanchez on 12-07-2023 Cholesterol in HDL (Body fld) [Mass/Vol] 56 mg/dL >40 [facility] Comment on above: The drugs N-Acetylcy steine and Metamizole may falsely depress this assay. Reference Range HDL <40 mg/dL Low HDL Cholesterol HDL >or= 60 mg/dL High HDL Cholesterol Laboratory - Chemistry and C hemistry - challengeOrdered By: Shamir Sanchez on 12-07-2023 Albumin/Globulin [Mass ratio] 1.0 {ratio} 0.9-2.4 [facility] ALP [Catalytic activity/Vol] 93 U/L 45-117 [facility] ALT [Catalytic activity/Vol] 21 U/L 13-56 [facility] CO2 [Moles/Vol] 28.0 mmol/L 21.0-32.0 [facility] Globulin (S) [Mass/Vol] 3.8 g/dL 2.2-4.2 [facility] Urea nitrogen/Creatinine [Mass ratio] 21.9 mg/mg 10-20 [facility] Low density lipoprotein (LDL ) cholesterol measurementOrdered By: Shamir Sanchez on 12-07-2023 Cholesterol in LDL (Body fld) [Moles/Vol] 85 mg/dL 0-130 [facility] No Panel InformationOrdered By: Shamir Sanchez on 12-07-2023 Estimated GFR (MDRD) Amer 90 mL/min >60 [facility] Comment on above: GFR Calc Estimated GFR (MDRD) Non-Af Amer 74 mL/min >60 [facility] Comment on above: Non- GFR Calc Vitamin D 25-Hydroxy 80.9 ng/mL [facility] Comment on above: Vitamin D 25(OH) Sta tus Range Deficiency <20 ng/mL (50nmol/L) Insufficiency 20 - 30 ng/mL (50 - 75 nmol/L) Sufficiency 30 - 100 ng/mL (75 - 250 nmol/L) Toxicity >100 ng/mL (>250 nmol/L) Serum or plasma calcium luis urement (mass/volume)Ordered By: Shamir Sanchez on 12-07-2023 Calcium [Mass/Vol] 9.7 mg/dL 8.5-10.1 [facility] Serum or plasma creatinine m easurement (mass/volume)Ordered By: Shamir Sanchez on 12-07-2023 Creatinine [Mass/Vol] 0.82 mg/dL 0.55-1.02 [facility] Comment on above: The validity of the calculated GFR & GFRAA in patients over 70 years has not been determined. Clinical correlation is essential. Serum or plasma urea nitroge n measurement (mass/volume)Ordered By: Shamir Sanchez on 12-07-2023 Urea nitrogen [Mass/Vol] 18 mg/dL 7-18 [facility] Thin prep Papanicolaou smear with manual screeningOrdered By: Shamir Sanchez on 12-07-2023 Thin prep Papanicolaou smear with manual screening 3.8 g/dL 3.2-5.0 [facility] Thin prep Papanicolaou smear with manual screening 19 U/L 15-37 [facility] Comment on above: Slight Hemolysis, Re sult may be falsely increased. Thin prep Papanicolaou smear with manual screening 5 5-15 [facility] Very low density lipoprotein (VLDL) cholesterol measurementOrdered By: Shamir Sanchez on 12-07-2023 Cholesterol in VLDL Calc [Moles/Vol] 35 mg/dL 5-40 [facility] Basophil percentageOrdered B y: Shamir Sanchez on 06-13-2023 Chloride [Moles/Vol] 107 mmol/L 98-107 [facility] Cholesterol [Mass/Vol] 160 mg/dL <200 [facility] Comment on above: <200 mg/dL Desirable 200-240 mg/dL Borderline >240 mg/dL High Risk Glucose [Mass/Vol] 109 mg/dL 74-106 [facility] Comment on above: Fasting Glucose resu lt from 100 to 125 mg/dL suggests IMPAIRED HOMEOSTASIS per A.D.A. criteria. Potassium [Moles/Vol] 3.7 mmol/L 3.5-5.1 [facility] Sodium [Moles/Vol] 140 mmol/L 136-145 [facility] Triglyceride [Mass/Vol] 172 mg/dL <199 [facility] Comment on above: The drugs N-Acetylcy steine and Metamizole may falsely depress this assay.Serum Triglycerides Reference Interval Normal <150 mg/dL Borderline high 150 - 199 mg/dL High 200 - 499 mg/dL Very High > or = 500 mg/dL Laboratory - Chemistry and C hemistry - challengeOrdered By: Shamir Sanchez on 06-13-2023 CO2 [Moles/Vol] 26.0 mmol/L 21.0-32.0 [facility] Urea nitrogen/Creatinine [Mass ratio] 13.8 mg/mg 10-20 [facility] No Panel InformationOrdered By: Shamir Sanchez on 06-13-2023 Estimated GFR (MDRD) Amer 84 mL/min >60 [facility] Comment on above: GFR Calc Estimated GFR (MDRD) Non-Af Amer 70 mL/min >60 [facility] Comment on above: Non- GFR Calc Serum or plasma calcitriol m easurement (mass/volume)Ordered By: Shamir Sanchez on 06-13-2023 1,25-dihydroxyvitamin D3 [Mass/Vol] 53.5 pg/mL 24.8-81.5 [facility] Comment on above: Performed at: [address] [id number] Director: Veronica Ansari MD, Phone: [phone] Serum or plasma calcium luis urement (mass/volume)Ordered By: Shamir Sanchez on 06-13-2023 Calcium [Mass/Vol] 9.1 mg/dL 8.5-10.1 [facility] Serum or plasma cholesterol in HDL measurement (mass/volume)Ordered By: Shamir Sanchez on 06-13-2023 Cholesterol in HDL [Mass/Vol] 53 mg/dL >40 [facility] Comment on above: The drugs N-Acetylcy steine and Metamizole may falsely depress this assay. Reference Range HDL <40 mg/dL Low HDL Cholesterol HDL >or= 60 mg/dL High HDL Cholesterol Serum or plasma cholesterol in VLDL measurement (mass/volume)Ordered By: Shamir Sanchez on 06-13-2023 Cholesterol in VLDL [Mass/Vol] 34 mg/dL 5-40 [facility] Serum or plasma creatinine m easurement (mass/volume)Ordered By: Shamir Sanchez on 06-13-2023 Creatinine [Mass/Vol] 0.87 mg/dL 0.55-1.02 [facility] Comment on above: The validity of the calculated GFR & GFRAA in patients over 70 years has not been determined. Clinical correlation is essential. Serum or plasma low density lipoprotein (LDL) cholesterol measurement (mass/volume)Ordered By: Shamir Sanchez on 06-13-2023 Cholesterol in LDL [Mass/Vol] 73 mg/dL 0-130 [facility] Serum or plasma urea nitroge n measurement (mass/volume)Ordered By: Shamir Sanchez on 06-13-2023 Urea nitrogen [Mass/Vol] 12 mg/dL 7-18 [facility] Thin prep Papanicolaou smear with manual screeningOrdered By: Shamir Sanchez on 06-13-2023 Thin prep Papanicolaou smear with manual screening 7 5-15 [facility] Established Visit (Otolaryng ology)on 01-26-2023 Established Visit (Otolaryngology) Provider Impressions 61 yo woman with oropharyngeal papillomas, recent biopsy; asymptomatic path : mild - mod dysplasia with papilloma -doing well after excision of papilloma -follow up in 6 months Chief Complaint follow up History of Present [id number] yo woman referred by Dr. 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) Allergies Penicillins Recorded By: Komal Faith; 12/31/2021 1:32:20 PM Current Meds Medication NameInstruction Acetaminophen-Codeine 120-12 MG/5ML Oral SolutionTAKE 15 ML BY MOUTH EVERY 6 HOURS NEEDED FOR PAIN Atorvastatin Calcium 20 MG Oral Tablet Biotin 17348 MCG Oral Tablet Estradiol 0.1 MG/GM Vaginal Cream Lansoprazole 15 MG Oral Capsule Delayed Release Lisinopril 5 MG Oral Tablet Ocuvite TABS Polyethylene Glycol 3350 17 GM/SCOOP Oral PowderMIX 17 GM IN LIQUID AND DRINK ONCE DAILY [id number] 30-2-10 MG/5ML Oral Syrup TruBiotics Oral Capsule Tylenol Extra Strength 500 MG Oral Tablet Venlafaxine HCl ER 75 MG Oral Capsule Extended Release 24 Hour Vitamin B12 TABS Vitamin D3 TABS Physical Exam nad alert shonda eomi NCAT right tonsil fossa well healed scar band no residual papilloma seen neck without masses or LIVIA Procedure Flexible nasopharyngoscopy Indications. oropharyngeal lesions Anesthetized nasal cavity with Afrin and lidocaine : Scope was advanced through the right nostril no residual papilloma posterior nasal cavity on back side of soft palate / uvula both cords mobile no other lesions 'Scores and Scales' Signatures Electronically signed by : Edison Evans MD; Jan 26 2023 8:19AM EST (Author) Normal [facility] Tobacco Screening.on 023 Adult depression screening assessment No MG-Otolaryn go [facility] [address] Work Phone: Fall risk assessment a) No falls within the last year -Otolaryngo [facility] [address] Work Phone: Tobacco use status [facility] b) No -Otolaryngo [facility] [address] Work Phone: Absolute lymphocyte countOrd ered By: Dr. Sanchez on 12-13-2022 Lymphocytes Auto (Unsp spec) [#/Vol] 2.55 10*3/uL 0.83-4.51 [facility] Basophil percentageOrdered B y: Dr. Sanchez on 12-13-2022 Basophils/100 WBC (Bld) 0.8 % 0-1 [facility] Bilirubin [Mass/Vol] 0.50 mg/dL 0.20-1.00 [facility] Comment on above: For patients on eltr ombopag therapy, use of Dimension [place] TBIL is not recommended. Chloride [Moles/Vol] 108 mmol/L 98-107 [facility] Cholesterol [Mass/Vol] 164 mg/dL <200 [facility] Comment on above: <200 mg/dL Desirable 200-240 mg/dL Borderline >240 mg/dL High Risk Eosinophils/100 WBC (Bld) 3.8 % 0-5 [facility] Glucose [Mass/Vol] 108 mg/dL 74-106 [facility] Comment on above: Fasting Glucose resu lt from 100 to 125 mg/dL suggests IMPAIRED HOMEOSTASIS per A.D.A. criteria. Neutrophils (Bld) [#/Vol] 4.3 10*3/uL 2.0-7.7 [facility] Neutrophils/100 WBC (Bld) 54.4 % 47-70 [facility] Potassium [Moles/Vol] 4.1 mmol/L 3.5-5.1 [facility] Protein [Mass/Vol] 7.2 g/dL 6.4-8.2 [facility] Sodium [Moles/Vol] 142 mmol/L 136-145 [facility] Triglyceride [Mass/Vol] 96 mg/dL <199 [facility] Comment on above: The drugs N-Acetylcy steine and Metamizole may falsely depress this assay.Serum Triglycerides Reference Interval Normal <150 mg/dL Borderline high 150 - 199 mg/dL High 200 - 499 mg/dL Very High > or = 500 mg/dL WBC (Bld) [#/Vol] 7.9 10*3/uL 4.4-11.0 [facility] Blood erythrocytes count (nu mber/volume)Ordered By: Dr. Sanchez on 12-13-2022 RBC (Bld) [#/Vol] 4.54 10*6/uL 4.2-5.4 [facility] Blood hemoglobin measurement (mass/volume)Ordered By: Dr. Sanchez on 12-13-2022 Hemoglobin (Bld) [Mass/Vol] 13.8 g/dL 12.0-15.0 [facility] Blood lymphocytes/100 leukoc ytesOrdered By: Dr. Sanchez on 12-13-2022 Lymphocytes/100 WBC (Bld) 32.3 % 19-41 [facility] Blood monocytes/100 leukocyt esOrdered By: Dr. Sanchez on 12-13-2022 Monocytes/100 WBC (Bld) 8.4 % 0-10 [facility] Blood platelet mean volumeOr dered By: Dr. Sanchez on 12-13-2022 Platelet mean volume (Bld) [Entitic vol] 10.2 fL 6.2-12.0 [facility] Determination of erythrocyte mean corpuscular volume (MCV)Ordered By: Dr. Sanchez on 12-13-2022 MCV (RBC) [Entitic vol] 94.9 fL 81-99 [facility] Hematocrit Auto (Bld) [Volum e fraction]Ordered By: Dr. Sanchez on 12-13-2022 Hematocrit (Bld) [Volume fraction] 43.1 % 37-47 [facility] - Chemistry and C hemistry - challengeOrdered By: Dr. Sanchez on 12-13-2022 ALP [Catalytic activity/Vol] 85 U/L 45-117 [facility] ALT [Catalytic activity/Vol] 22 U/L 13-56 [facility] CO2 [Moles/Vol] 27.0 mmol/L 21.0-32.0 [facility] Globulin (S) [Mass/Vol] 3.5 g/dL 2.2-4.2 [facility] Urea nitrogen/Creatinine [Mass ratio] 28.4 mg/mg 10-20 [facility] - Hematology and Cell countsOrdered By: Dr. Sanchez on 12-13-2022 Erythrocyte distribution width (RBC) [Entitic vol] 44.4 fL 35.1-43.9 [facility] Erythrocyte distribution width (RBC) [Ratio] 12.7 % 11.6-14.6 [facility] Immature granulocytes/100 WBC (Bld) 0.300 % 0.0-0.9 [facility] Comment on above: IG% - Immature Granu locytes (promyelocytes, myelocytes and metamyelocytes) > 1% indicates that a LEFT SHIFT is Present. MCH (RBC) [Entitic mass] 30.4 pg 27.0-32.0 [facility] Nucleated RBC/100 WBC (Bld) [Ratio] 0 % 0-5 [facility] MCHC Auto (RBC) [Mass/Vol]Or dered By: Dr. Sanchez on 12-13-2022 MCHC (RBC) [Mass/Vol] 32.0 g/dL 32-36 [facility] No Panel InformationOrdered By: Dr. Sanchez on 12-13-2022 Estimated GFR (MDRD) Amer 96 mL/min >60 [facility] Comment on above: GFR Calc Estimated GFR (MDRD) Non-Af Amer 79 mL/min >60 [facility] Comment on above: Non- GFR Calc Vitamin D 25-Hydroxy 82.7 ng/mL [facility] Comment on above: Vitamin D 25(OH) Sta tus Range Deficiency <20 ng/mL (50nmol/L) Insufficiency 20 - 30 ng/mL (50 - 75 nmol/L) Sufficiency 30 - 100 ng/mL (75 - 250 nmol/L) Toxicity >100 ng/mL (>250 nmol/L) Platelets bldOrdered By: Dr. Sanchez on 12-13-2022 Platelets (Bld) [#/Vol] 336 10*3/uL 150-450 [facility] Serum or plasma albumin luis urement (mass/volume)Ordered By: Dr. Sanchez on 12-13-2022 Albumin [Mass/Vol] 3.7 g/dL 3.2-5.0 [facility] Serum or plasma albumin/glob ulin mass ratioOrdered By: Dr. Sanchez on 12-13-2022 Albumin/Globulin [Mass ratio] 1.1 {ratio} 0.9-2.4 [facility] Serum or plasma calcium luis urement (mass/volume)Ordered By: Dr. Sanchez on 12-13-2022 Calcium [Mass/Vol] 9.0 mg/dL 8.5-10.1 [facility] Serum or plasma cholesterol in HDL measurement (mass/volume)Ordered By: Dr. Sanchez on 12-13-2022 Cholesterol in HDL [Mass/Vol] 55 mg/dL >40 [facility] Comment on above: The drugs N-Acetylcy steine and Metamizole may falsely depress this assay. Reference Range HDL <40 mg/dL Low HDL Cholesterol HDL >or= 60 mg/dL High HDL Cholesterol Serum or plasma cholesterol in VLDL measurement (mass/volume)Ordered By: Dr. Sanchez on 12-13-2022 Cholesterol in VLDL [Mass/Vol] 19 mg/dL 5-40 [facility] Serum or plasma creatinine m easurement (mass/volume)Ordered By: Dr. Sanchez on 12-13-2022 Creatinine [Mass/Vol] 0.78 mg/dL 0.55-1.02 [facility] Comment on above: The validity of the calculated GFR & GFRAA in patients over 70 years has not been determined. Clinical correlation is essential. Serum or plasma low density lipoprotein (LDL) cholesterol measurement (mass/volume)Ordered By: Dr. Sanchez on 12-13-2022 Cholesterol in LDL [Mass/Vol] 90 mg/dL 0-130 [facility] Serum or plasma urea nitroge n measurement (mass/volume)Ordered By: Dr. Sanchez on 12-13-2022 Urea nitrogen [Mass/Vol] 22 mg/dL 7-18 [facility] Thin prep Papanicolaou smear with manual screeningOrdered By: Dr. Sanchez on 12-13-2022 Thin prep Papanicolaou smear with manual screening 14 U/L 15-37 [facility] Thin prep Papanicolaou smear with manual screening 7 5-15 [facility] Established Visit (Otolaryng ology)on 06-23-2022 Established Visit (Otolaryngology) Provider Impressions 61 yo woman with oropharyngeal papillomas, recent biopsy; asymptomatic path : mild - mod dysplasia with papilloma -doing well after excision of papilloma -follow up in 6 months Chief Complaint post-op History of Present Oqunwud6 yo woman referred by Dr. Pena for [...] of oropharyngeal papilloma. 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) Allergies Penicillins Recorded By: Komal Faith; 12/31/2021 1:32:20 PM Current Meds Medication NameInstruction Acetaminophen-Codeine 120-12 MG/5ML Oral SolutionTAKE 15 ML BY MOUTH EVERY 6 HOURS NEEDED FOR PAIN Atorvastatin Calcium 20 MG Oral Tablet Biotin 33131 MCG Oral Tablet Estradiol 0.1 MG/GM Vaginal Cream Lansoprazole 15 MG Oral Capsule Delayed Release Lisinopril 5 MG Oral Tablet Ocuvite TABS Polyethylene Glycol 3350 17 GM/SCOOP Oral PowderMIX 17 GM IN LIQUID AND DRINK ONCE DAILY Wxdzdmorw-Brkksufn-GS 30-2-10 MG/5ML Oral Syrup TruBiotics Oral Capsule Tylenol Extra Strength 500 MG Oral Tablet Venlafaxine HCl ER 75 MG Oral Capsule Extended Release 24 Hour Vitamin B12 TABS Vitamin D3 TABS Vitals Vital Signs Recorded: [id number] 02:51PM Ozienwfqtvo03.6 F Height5 ft 4 in Dfznef872 lb 3.2 oz BMI Aztwumucpc91.67 kg/m2 BSA Calculated1.78 Tobacco Useb) No PHQ-2 #1. Over the last 2 weeks have you felt down, depressed or hopeless? (If yes, answer PHQ-9 below)Yes PHQ-2 #2. Over the last 2 weeks have you felt little interest or pleasure in doing things? (If yes, answer PHQ-9 below)Yes Falls Screening (Age 18+)a) No falls within the last year Physical Exam nad alert shonda eomi NCAT right tonsil fossa with some mild granulation tissue no residual papilloma seen no bleeding or clots 'Scores and Scales' Signatures Electronically signed by : Edison Evans MD; Jun 23 2022 9:41PM EST (Author) Normal [employer] Tobacco Screening.on 022 Adult depression screening assessment Yes [facility] Work Phone: Fall risk assessment a) No falls within the last year [facility] Work Phone: Tobacco use status CPHS b) No [facility] Work Phone: Cervical or vagninal specime n microscopic examination by cytology stain (reported ason 06-16-2022 Cytology report Cyto stain Doc (Cvx/Vag) Comment . [facility] Work Phone: Comment on above: The Pap smear is a s creening test designed to aid in thedetection of premalignant and malignant conditions of theuterine cervix. It is not a diagnostic procedure andshould not be used as the sole means of detecting cervicalcancer. Both false-positive and false-negative reports dooccur. Detection in cervical specim en of any of human papilloma virus (HPV) 16, 18, 31, 33,on 06-16-2022 HPV 16+18+31+33+35+39+45+5 1+52+56+58+59+66+68 DNA Probe+sig amp Ql (Cvx) Negative Negative [facility] Work Phone: Comment on above: This nucleic acid am plification test detects fourteen high- risk HPV types (16,18,31,33,35,39,45,51,52,56,58,59,66,68)without differentiation.Performed at: - [address] [id number] Director: Debby Harrington MD, Phone: [phone] at: = - [facility] [id number] Director: Debby Harrington MD, Phone: [phone] Laboratory - Cytologyon Mixer Lever Operator Cyto stain Nom (Cvx/Vag) [ID] Comment . [facility] Work Phone: Comment on above: Holly Boone, Cytot echnologist (ASCP) Laboratory - Miscellaneous t estson 06-16-2022 Service comment (Unsp spec) [Interp] Comment . [facility] Work Phone: Comment on above: This liquid based Th inPrep(R) pap test was screened withthe use of an image guided system. Service comment (Unsp spec) [Interp] . . [facility] Work Phone: No Panel Informationon 06-16 Pathology report final diagnosis Narrative Comment . [facility] Work Phone: Comment on above: NEGATIVE FOR INTRAEP ITHELIAL LESION OR MALIGNANCY.CELLULAR CHANGES ASSOCIATED WITH ATROPHY ARE PRESENT. Absolute lymphocyte counton 06-11-2022 Lymphocytes Auto (Unsp spec) [#/Vol] 2.42 10*3/uL 0.83-4.51 [facility] Work Phone: Basophil percentageon 2021 Basophils/100 WBC (Bld) 0.9 % 0-1 [facility] Work Phone: Bilirubin [Mass/Vol] 0.60 mg/dL 0.20-1.00 [facility] Work Phone: Comment on above: For patients on eltr ombopag therapy, use of Dimension [place] TBIL is not recommended. Chloride [Moles/Vol] 108 mmol/L 98-107 [facility] Work Phone: Cholesterol [Mass/Vol] 141 mg/dL <200 [facility] Work Phone: Comment on above: <200 mg/dL Desirable 200-240 mg/dL Borderline >240 mg/dL High Risk Eosinophils/100 WBC (Bld) 4.0 % 0-5 [facility] Work Phone: Glucose [Mass/Vol] 116 mg/dL 74-106 [facility] Work Phone: Comment on above: Fasting Glucose resu lt from 100 to 125 mg/dL suggests IMPAIRED HOMEOSTASIS per A.D.A. criteria. Neutrophils (Bld) [#/Vol] 3.5 10*3/uL 2.0-7.7 [facility] Work Phone: Neutrophils/100 WBC (Bld) 50.6 % 47-70 [facility] Work Phone: Potassium [Moles/Vol] 4.0 mmol/L 3.5-5.1 [facility] Work Phone: Protein [Mass/Vol] 7.0 g/dL 6.4-8.2 [facility] Work Phone: Sodium [Moles/Vol] 140 mmol/L 136-145 [facility] Work Phone: Triglyceride [Mass/Vol] 87 mg/dL <199 [facility] Work Phone: Comment on above: The drugs N-Acetylcy steine and Metamizole may falsely depress this assay.Serum Triglycerides Reference Interval Normal <150 mg/dL Borderline high 150 - 199 mg/dL High 200 - 499 mg/dL Very High > or = 500 mg/dL WBC (Bld) [#/Vol] 6.9 10*3/uL 4.4-11.0 [facility] Work Phone: Blood erythrocytes count (nu mber/volume)on 06-11-2022 RBC (Bld) [#/Vol] 4.37 10*6/uL 4.2-5.4 [facility] Work Phone: Blood hemoglobin measurement (mass/volume)on 06-11-2022 Hemoglobin (Bld) [Mass/Vol] 13.3 g/dL 12.0-15.0 [facility] Work Phone: Blood lymphocytes/100 leukoc yteson 06-11-2022 Lymphocytes/100 WBC (Bld) 35.0 % 19-41 [facility] Work Phone: Blood monocytes/100 leukocyt eson 06-11-2022 Monocytes/100 WBC (Bld) 9.2 % 0-10 [facility] Work Phone: Blood platelet mean volumeon 06-11-2022 Platelet mean volume (Bld) [Entitic vol] 9.8 fL 6.2-12.0 [facility] Work Phone: Determination of erythrocyte mean corpuscular volume (MCV)on 06-11-2022 MCV (RBC) [Entitic vol] 93.4 fL 81-99 [facility] Work Phone: Hematocrit Auto (Bld) [Volum e fraction]on 06-11-2022 Hematocrit (Bld) [Volume fraction] 40.8 % 37-47 [facility] Work Phone: Laboratory - Chemistry and C hemistry - challengeon 06-11-2022 ALP [Catalytic activity/Vol] 84 U/L 45-117 [facility] Work Phone: ALT [Catalytic activity/Vol] 21 U/L 13-56 [facility] Work Phone: CO2 [Moles/Vol] 26.0 mmol/L 21.0-32.0 [facility] Work Phone: Globulin (S) [Mass/Vol] 3.4 g/dL 2.2-4.2 [facility] Work Phone: Urea nitrogen/Creatinine [Mass ratio] 26.9 mg/mg 10-20 [facility] Work Phone: Laboratory - Hematology and Cell countson 06-11-2022 Erythrocyte distribution width (RBC) [Entitic vol] 41.7 fL 35.1-43.9 [facility] Work Phone: Erythrocyte distribution width (RBC) [Ratio] 12.1 % 11.6-14.6 [facility] Work Phone: Immature granulocytes/100 WBC (Bld) 0.300 % 0.0-0.9 [facility] Work Phone: Comment on above: IG% - Immature Granu locytes (promyelocytes, myelocytes and metamyelocytes) > 1% indicates that a LEFT SHIFT is Present. MCH (RBC) [Entitic mass] 30.4 pg 27.0-32.0 [facility] Work Phone: Nucleated RBC/100 WBC (Bld) [Ratio] 0 % 0-5 [facility] Work Phone: MCHC Auto (RBC) [Mass/Vol]on 06-11-2022 MCHC (RBC) [Mass/Vol] 32.6 g/dL 32-36 [facility] Work Phone: No Panel Informationon 06-11 Estimated GFR (MDRD) Amer 101 mL/min >60 [facility] Work Phone: Comment on above: GFR Calc Estimated GFR (MDRD) Non-Af Amer 84 mL/min >60 [facility] Work Phone: Comment on above: Non- GFR Calc Vitamin D 25-Hydroxy 100.2 ng/mL [facility] Work Phone: Platelets bldon 06-11-2022 Platelets (Bld) [#/Vol] 333 10*3/uL 150-450 [facility] Work Phone: Serum or plasma albumin luis urement (mass/volume)on 06-11-2022 Albumin [Mass/Vol] 3.6 g/dL 3.2-5.0 [facility] Work Phone: Serum or plasma albumin/glob ulin mass ratioon 06-11-2022 Albumin/Globulin [Mass ratio] 1.1 {ratio} 0.9-2.4 [facility] Work Phone: Serum or plasma calcium luis urement (mass/volume)on 06-11-2022 Calcium [Mass/Vol] 8.8 mg/dL 8.5-10.1 [facility] Work Phone: Serum or plasma cholesterol in HDL measurement (mass/volume)on 06-11-2022 Cholesterol in HDL [Mass/Vol] 48 mg/dL >40 [facility] Work Phone: Comment on above: The drugs N-Acetylcy steine and Metamizole may falsely depress this assay. Reference Range HDL <40 mg/dL Low HDL Cholesterol HDL >or= 60 mg/dL High HDL Cholesterol Serum or plasma cholesterol in VLDL measurement (mass/volume)on 06-11-2022 Cholesterol in VLDL [Mass/Vol] 17 mg/dL 5-40 [facility] Work Phone: Serum or plasma creatinine m easurement (mass/volume)on 06-11-2022 Creatinine [Mass/Vol] 0.74 mg/dL 0.55-1.02 [facility] Work Phone: Comment on above: The validity of the calculated GFR & GFRAA in patients over 70 years has not been determined. Clinical correlation is essential. Serum or plasma low density lipoprotein (LDL) cholesterol measurement (mass/volume)on 06-11-2022 Cholesterol in LDL [Mass/Vol] 76 mg/dL 0-130 [facility] Work Phone: Serum or plasma urea nitroge n measurement (mass/volume)on 06-11-2022 Urea nitrogen [Mass/Vol] 20 mg/dL 7-18 [facility] Work Phone: Thin prep Papanicolaou smear with manual screeningon 06-11-2022 Thin prep Papanicolaou smear with manual screening 15 U/L 15-37 [facility] Work Phone: Thin prep Papanicolaou smear with manual screening 6 5-15 [facility] Work Phone: No Panel Informationon 06-02 [facility]: Order Reconciliationon 06-02 Order Reconciliation Page 1 Discharge Reconciliation Document Reconciliation Type: Discharge requested on behalf of Geoff Moise (Resident) done by Geoff Moise ( (Resident)) Discharge - Reconciliation: 02-Jun-2022 07:36 by: Geoff Moise ( (Resident)) Home Medications EnteredHOME MEDICATIONS AT DISCHARGE DateReconciliation Comment/ Additional Information atorvastatin 20 mg oral tablet 1 tab(s) oral 27-may-2022 14:55 atorvastatin 20 mg oral tablet 1 tab(s) oral 27-may-2022 14:55 atorvastatin 20 mg oral tablet is continued as atorvastatin 20 mg oral tablet Biotin 1 tab(s) oral once a day 27-May-2022 14:56 Biotin 1 tab(s) oral once a day 27-May-2022 14:56 Biotin is continued as Biotin Claritin 10 mg oral tablet 1 tab(s) oral once a day 27-May-2022 14:57 Claritin 10 mg oral tablet 1 tab(s) oral once a day 27-May-2022 14:57 Claritin 10 mg oral tablet is continued as Claritin 10 mg oral tablet Effexor XR 75 mg oral capsule, extended release 1 tab(s) oral once a day 27-May-2022 14:53 Effexor XR 75 mg oral capsule, extended release 1 tab(s) oral once a day 27-May-2022 14:53 Effexor XR 75 mg oral capsule, extended release is continued as Effexor XR 75 mg oral capsule, extended release lisinopril 5 mg oral tablet 1 tab(s) oral once a day 27-May-2022 14:54 lisinopril 5 mg oral tablet 1 tab(s) oral once a day 27-May-2022 14:54 lisinopril 5 mg oral tablet is continued as lisinopril 5 mg oral tablet Ocuvite Antioxidant Multiple Vitamins and Minerals oral tablet 1 tab(s) oral once a day 27-May-2022 14:56 Ocuvite Antioxidant Multiple Vitamins and Minerals oral tablet 1 tab(s) oral once a day 27-May-2022 14:56 Ocuvite Antioxidant Multiple Vitamins and Minerals oral tablet is continued as Ocuvite Antioxidant Multiple Vitamins and Minerals oral tablet Prevacid 15 mg oral delayed release capsule 1 tab(s) oral once a day 27-May-2022 14:59 Prevacid 15 mg oral delayed release capsule 1 tab(s) oral once a day 27-May-2022 14:59 Prevacid 15 mg oral delayed release capsule is continued as Prevacid 15 mg oral delayed release capsule art biotics 1 tab(s) oral once a day 27-May-2022 14:57 art biotics 1 tab(s) oral once a day 27-May-2022 14:57 art biotics is continued as art biotics Tylenol Caplet Extra Strength 500 mg oral tablet 1 tab(s) oral prn 27-May-2022 15:00 Tylenol Caplet Extra Strength 500 mg oral tablet 1 tab(s) oral prn 27-May-2022 15:00 Tylenol Caplet Extra Strength 500 mg oral tablet is continued as Tylenol Caplet Extra Strength 500 mg oral tablet Current OrdersDateHOME MEDICATIONS AT DISCHARGE DateReconciliation Comment/ Additional Information Clindamycin 600 mg IVPB/ Premixed Soln 50 mL (CLEOCIN)OnceRecommen ded Infusion Time: 30 minute(s)Clinician Notes: PRE-OPERATIVE FOR 30-May-2022 11:52 Clindamycin 600 mg IVPB/ Premixed Soln 50 mL is not required Home Medications Added During Discharge Reconciliation acetaminophen-codeine 120 mg-12 mg/5 mL oral liquid 15 milliliter(s) orally every 6 hours as needed for pain. g89.18 Activity as Tolerated 02-Jun-2022, Routine, Assistance Level: None, Restrictions: None, Limit your activities and rest today. Additional Patient Instructions Additional post-operative instructions were given to the patient by the provider in the pre-op office visit Additional Patient Instructions Change initial dressing. Additional Patient Instructions Do not consume alcoholic beverages for 24 hours. Additional Patient Instructions Do not engage in sports, heavy work or lifting. Additional Patient Instructions Do not make important decisions or sign any important documents for the next 24 hours. Additional Patient Instructions Do not smoke for 24 hours. Additional Patient Instructions It is recommended that a responsible adult remain with you for the next 24 hours as you may be light headed/dizzy. Additional Patient Instructions Take pain medication as directed Call Physician For: excessive bleeding (slow general oozing that completely soaks dressing or fresh bright red bleeding) or bleeding that will not stop. Apply pressure to the area and elevate. Call Physician For: persistant nausea and/or vomiting Over 24 hours Call Physician For: signs and sypmtoms of infection Increased redness or swelling at incision site, increased pain/tenderness at surgical site, increased temperature greater than 100 degress, increasing and/or progressive drainage from surgical site, and/or unusual odor from surgical site. Diet Soft Special Instructions: 2 weeks Discharge Discharge Diagnosis< D36.9 Papilloma Discharge Provider, Edison Evans Discharge Disposition : .Home Condition at Discharge: Satisfactory Discharge Communication Instructions for Nursing Only: Remove IV prior to discharge from hospital. Do not remove any midline, if present, without an order from the provider. Discharge Instructions - PHR After you (more content not included)... Normal [facility] Surgical Pathology Depar tmenton 06-02-2022 [facility] Surgical Pathology Department Name BRENNA MALONE Pathologist: EVE TOBIAS DMD. 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 NOTE: The lesion extends to inked and cauterized specimen edges multifocally (superior, inferior, medial, and lateral). The lesion shows both glanduar and squamous components. Appropriately contorolled p16 immunostain is negative. By ANUSHKA performed at the [facility], low risk HPV (types 6 or 11) is positive and high risk HPV (types 16, 18, 31, 33, or 51) is negative (complete reports on file). P16 by immunohistochemistry: Negative Reference Range: Negative: <50% strong nuclear and cytoplasmic invasive tumor cell staining Equivocal: 50-70% strong nuclear and cytoplasmic invasive tumor cell staining Positive: >70% strong nuclear and cytoplasmic invasive tumor cell staining at Electronically Signed Out By EVE TOBIAS DMD./KEMARW By the signature on this report, the individual or group listed as making the Final Interpretation/Diagno sis certifies that they have reviewed this case. Diagnostic interpretation performed at [facility] [address] [facility] [address] Addendum/Procedures: Outside Ancillary Testing Date Ordered: 06/19/2022 Status: Signed Out Date Complete: 06/19/2022 Date Reported: 06/23/2022 Addendum Diagnosis A complete HPV High-Risk ONLY DNA ANUSHKA result issued by [facility] [place] is on file in the Department of Anatomic Pathology at [facility]. Interpretation Right tonsil, specimen for Human Papilloma Virus (HPV) In Situ Hybridization (ANUSHKA) studies performed on paraffin-embedded tissue sections ([id number]): HPV (family 16) DNA ANUSHKA is negative for types 16, 18, 31, 33, and 51. Also A complete HPV Low-Risk ANUSHKA result issued by [facility] is on file in the Department of Anatomic Pathology at [facility]. Interpretation Right tonsil, paraffin-embedded tissue specimen for Human Papilloma Virus (HPV) In Situ Hybridization (ANUSHKA) studies ([id number]): HPV (family 6) ANUSHKA is positive. This indicates positivity for one or more of the following types: 6 or 11. Electronically Signed Out By EVE TOBIAS DMD./ADEN By the signature on this report, the individual or group listed as making the Final Interpretation/Diagno sis certifies that they have reviewed this case. Addendum signed out at [place] [id number]. Outside Reference Lab Report [IMAGE:attachments: c41:1] Clinical History: Benign neoplasm of mouth and pharynx Specimens Submitted As: A: RIGHT REVISION TONSILLECTOMY, LONG STITCH SUPERIOR, SHORT STITCH LATERAL Gross Description: Received in formalin, labeled with the patient's name and hospital number and A right revision tonsillectomy-long stitch superior, short stitch-lateral, consists of an oriented negative and cerrato, cauterized segment of tonsillar tissue measuring 3.2 x 1.5 x 1.0 cm. The specimen is oriented with 2 sutures per the surgeon as follows: Long stitch-superior, short stitch-lateral. The specimen is inked as follows: Lateral margin-blue, medial margin-yellow, deep-black. Specimen is serially sectioned from superior to inferior to reveal pink-cerrato, grossly homogenous cut surface. No discrete lesions or masses are grossly identified. The specimen is entirely submitted in 5 cassettes. MJR Summary of Cassettes: Specimen Label Site A 1 superior tip en face 2-5 body of specimen 6 inferior tip, en face mjr/06/04/2022 The assays/tests were performed with appropriate positive and negative controls which stained appropriately. [facility] Department of Pathology [id number] [place] [address] Normal [facility] Comment on above: Performed By: #### [facility] #### [facility] Surgical Pathology Department [address] [place], [place] [id number] Laboratory - Microbiology an d Antimicrobial susceptibilityon 05-30-2022 SARS-CoV-2 (COVID-19) RNA NILE+probe Ql (Unsp spec) Not detected Not Detect [facility] Work Phone: Comment on above: Normal Reference Ran ge: Not DetectedMethod:(RT-PCR) real-time reverse transcriptase PCRLuminex ALAN Instrument*The Food and Drug Administration (FDA) has issued an Emergency Use Authorization (EAU) for the ALAN SARS-CoV-2 Assay for the rapid detection of the virus that causes COVID-19. This test has been validated, but the FDAs independent review of this validation is pending.*Negative results do not preclude infection and should not be used as the sole basis for treatment or patient management. Optimum specimen types and timing for peak viral levels during infections caused by SARS-CoV-2 have not been determined. Collection of multiple specimens from the same patient may be necessary to detect the virus. The possibility of a false negative result should be considered if the patient has clinical presentation or has had recent exposure. Electrocardiogram 12 Leadon 05-27-2022 Electrocardiogram 12 Lead Ventricular Rate 81 Atrial Rate 81 P-R Interval 172 QRS Duration 80 Q-T Interval 406 QTC Calculation(Bazett) 471 P Danby 36 R Danby 33 T Danby 27 QRS Count 14 Q Onset 220 P Onset 134 P Offset 160 T Offset 423 QTC Fredericia 448 Diagnosis Class Borderline Abnormal Diagnosis Sinus rhythm with marked sinus arrhythmia Otherwise normal ECG No previous ECGs available Confirmed by David Keys ([id number]) on 06/01/2022 7:34:43 AM Normal [facility] No Panel Informationon 05-27 [email or web address]?PatientI M=[id number]&Date=&Time=14%3a46%3 a00%3a00&TestType=ECG &Site=10&OutputType=P DF&Ext=PDF [facility] Work Phone: Sinus rhythm with marked sinus arrhythmia [facility] Work Phone: Borderline Abnormal [facility] Work Phone: [phone] [facility] Work Phone: [phone] [facility] Work Phone: 160 1 [facility] Work Phone: 134 1 [facility] Work Phone: 220 1 [facility] Work Phone: 14 1 [facility] Work Phone: [phone] 1 [facility] Work Phone: [phone] 33 [phone] [facility] Work Phone: [phone] 36 [phone] [facility] Work Phone: [phone] [facility] Work Phone: [phone] 1 [facility] Work Phone: [phone] 80 1 [facility] Work Phone: [phone] 1 [facility] Work Phone: [phone] 81 1 [facility] Work Phone: [phone] BASIC METABOLIC PANELon 06-2 Anion gap [Moles/Vol] 15 mmol/L Normal 10 - 20 [facility] Comment on above: Performed By: #### B MP #### [facility] [address] [place] [address] Calcium [Mass/Vol] 9.6 mg/dL Normal 8.6 - 10.6 [facility] Comment on above: Performed By: #### B MP #### [facility] [address] [place] [address] Chloride [Moles/Vol] 107 mmol/L Normal 98 - 107 [facility] [place] Comment on above: Performed By: #### B MP #### [facility] [address] [place] [address] Creatinine [Mass/Vol] 0.82 mg/dL Normal 0.50 - 1.05 [facility] Comment on above: Performed By: #### B MP #### [facility] [address] [place] [address] GFR/1.73 sq M.predicted among non-blacks MDRD (S/P/Bld) [Vol rate/Area] 80 mL/min/{1.73_m2} Normal >90 [facility] Comment on above: Result Comment: CALC ULATIONS OF ESTIMATED GFR ARE PERFORMED USING THE 2020 CKD-EPI STUDY REFIT EQUATION WITHOUT THE RACE VARIABLE FOR THE IDMS-TRACEABLE CREATININE METHODS. https://jasn.asnjournals.org/content/early/ASN.84982 55555 Performed By: #### B MP #### [facility] [address] [place] [address] Glucose [Mass/Vol] 133 mg/dL High 74 - 99 [facility] Comment on above: Performed By: #### B MP #### [facility] [address] [place] [address] HCO3 (Bld) [Moles/Vol] 23 mmol/L Normal 21 - 32 [facility] Comment on above: Performed By: #### B MP #### [facility] [address] [place] [address] Potassium [Moles/Vol] 3.9 mmol/L Normal 3.5 - 5.3 [facility] Comment on above: Performed By: #### B MP #### [facility] [address] [place] [address] Sodium [Moles/Vol] 141 mmol/L Normal 136 - 145 [facility] Comment on above: Performed By: #### B MP #### [facility] [address] [place] [address] Urea nitrogen [Mass/Vol] 28 mg/dL High 6 - 23 [facility] Comment on above: Performed By: #### B MP #### [facility] [address] [place] [address] CBCon 05-13-2022 Erythrocyte distribution width (RBC) [Ratio] 12.4 % Normal 11.5 - 14.5 [facility] Comment on above: Performed By: #### C BC #### [facility] [address] [place] [address] Hematocrit (Bld) [Volume fraction] 40.0 % Normal 36.0 - 46.0 [facility] Comment on above: Performed By: #### C BC #### [facility] [address] [place] [address] Hemoglobin (Bld) [Mass/Vol] 13.1 g/dL Normal 12.0 - 16.0 [facility] Comment on above: Performed By: #### C BC #### [facility] [address] [place] [address] MCHC (RBC) [Mass/Vol] 32.8 g/dL Normal 32.0 - 36.0 [facility] Comment on above: Performed By: #### C BC #### [facility] [address] [place] [address] MCV (RBC) [Entitic vol] 94 fL Normal 80 - 100 [facility] Comment on above: Performed By: #### C BC #### [facility] [address] [place] [address] NUCLEATED RBC 0.0 /100 WBC Normal 0.0-0.0 [facility] Comment on above: Performed By: #### C BC #### [facility] [address] [place] [address] Platelets (Bld) [#/Vol] 333 10*3/uL Normal 150 - 450 [facility] Comment on above: Performed By: #### C BC #### [facility] [address] [place] [address] RBC 4.27 x10E12/L Normal 4.00 - 5.20 [facility] Comment on above: Performed By: #### C BC #### [facility] [address] [place] [address] WBC (Bld) [#/Vol] 7.4 10*3/uL Normal 4.4 - 11.3 [facility] Comment on above: Performed By: #### C BC #### [facility] [address] [place] [address] COAGULATION SCREENon 022 aPTT Coag (Bld) [Time] 27 s Normal 26 - 39 [facility] Comment on above: Result Comment: THE APTT IS NO LONGER USED FOR MONITORING UNFRACTIONATED HEPARIN THERAPY. FOR MONITORING HEPARIN THERAPY, USE THE HEPARIN ASSAY. Performed By: #### C OAGS #### [facility] [address] [place] [address] PT Coag (PPP) [Time] 11.6 s Normal 9.8 - 13.4 [facility] [place] Comment on above: Performed By: #### C OAGS #### [facility] [address] [place] [address] PT, INR 1.0 Normal 0.9 - 1.1 [facility] Comment on above: Performed By: #### C OAGS #### [facility] [address] [place] [address] Established Visit (Otolaryng ology)on 05-12-2022 Established Visit (Otolaryngology) Provider Impressions 61 yo woman with oropharyngeal papillomas, recent biopsy; asymptomatic outside path -squamous papilloma with moderate atypia reviewed path here says mild-mod dysplasia -seems to have slightly grown in size -discussed with pt we could consider removing these papilloma since it seems to be growing a bit, before it gets too broad -discussed risks including pain/bleeding/infecti on -consent obtained, OR planning -pt requested post-op liquid tylenol + codeine since she had issues with vicodin Chief Complaint follow up History of Present Woylsxn16 yo woman referred by Dr. Pena for [...] nasal congestion off an on. 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) Allergies Penicillins Recorded By: Komal Faith; 12/31/2021 1:32:20 PM Current Meds Medication NameInstruction Atorvastatin Calcium 20 MG Oral Tablet Biotin 94431 MCG Oral Tablet Estradiol 0.1 MG/GM Vaginal Cream Lansoprazole 15 MG Oral Capsule Delayed Release Lisinopril 5 MG Oral Tablet Ocuvite TABS Djqoaslgu-Isnilacp-SL 30-2-10 MG/5ML Oral Syrup TruBiotics Oral Capsule Tylenol Extra Strength 500 MG Oral Tablet Venlafaxine HCl ER 75 MG Oral Capsule Extended Release 24 Hour Vitamin B12 TABS Vitamin D3 TABS Vitals Vital Signs Recorded: 12May2022 03:43PM Loklubhdlvp20 F Height5 ft 4 in Mgnefg016 lb BMI Krbtzdidkm51.15 kg/m2 BSA Calculated1.8 Tobacco Useb) No Falls Screening (Age 18+)a) No falls within the last year Physical Exam CONSTITUTIONAL: Vitals stable as reviewed in nursing chart, appears well developed, well nourished RESPIRATION: Breathing comfortably on room air, no stridor CV: No clubbing/cyanosis/kingsley ma in hands EYES: EOM Intact, sclera normal NEURO: Alert and oriented times 3, Cranial nerves 2-12 intact and symmetric bilaterally HEAD AND FACE: Skin with no masses or lesions, sinuses nontender to palpation SALIVARY GLANDS: Parotid and submandibular glands normal bilaterally EARS: Normal external ears, external auditory canals, and TMs to otoscopy, normal hearing to whispered voice NOSE: External nose midline, anterior rhinoscopy is normal with limited visualization to the anterior aspect of the interior turbinates, no lesions noted ORAL CAVITY/OROPHARYNX/LIP S: left tonsil still present, normal 1+. right sided there is a 2 cm area of papillomatous changes in the tonsillar fossa, non obstructive, slightly more broad compared to last visit, NECK/LYMPH: No LAD, no thyroid masses Procedure Flexible nasopharyngoscopy Indications. oropharyngeal lesions Anesthetized nasal cavity with Afrin and lidocaine : Scope was advanced through the left nostril: There is a small papilloma posterior right uvula / soft palate, stable in appearance Both cords moving well normal base of tongue, remnant left tonsil benign appearing Pt tolerated well. 'Scores and Scales' Signatures Electronically signed by : Edison Evans MD; May 12 2022 4:21PM EST (Author) [facility] - Chemistry and C hemistry - challengeon 05-12-2022 Anion gap [Moles/Vol] 15 mmol/L 10 - 20 MG- Otolaryngo [facility] Work Phone: [phone] Calcium [Mass/Vol] 9.6 mg/dL 8.6 - 10.6 MG-Avinger laryngo [facility] Work Phone: [phone] Chloride [Moles/Vol] 107 mmol/L 98 - 107 MG-O tolaryngo [facility] Work Phone: [phone] CO2 [Moles/Vol] 23 mmol/L 21 - 32 MG-Otolar yngo [facility] Work Phone: [phone] Creatinine [Mass/Vol] 0.82 mg/dL See Below MG- Otolaryngo [facility] Work Phone: [phone] Comment on above: Reference Range: 0.5 0 - 1.05 Glucose [Mass/Vol] 133 mg/dL above high threshold 74 - 99 [facility]Otolaryngo [facility] Work Phone: [phone] Potassium [Moles/Vol] 3.9 mmol/L 3.5 - 5.3 [facility]- Otolaryngo [facility] Work Phone: [phone] Sodium [Moles/Vol] 141 mmol/L 136 - 145 [facility]Avinger laryngo [facility] Work Phone: [phone] Urea nitrogen [Mass/Vol] 28 mg/dL above high threshold 6 - 23 [facility]Otolaryngo [facility] Work Phone: Laboratory - Coagulationon 0 05-12-2022 aPTT Coag (PPP) [Time] 27 s 26 - 39 [facility] -Otolaryngo [facility] Work Phone: [phone] Comment on above: THE APTT IS NO LONGE R USED FOR MONITORING UNFRACTIONATED HEPARIN THERAPY. FOR MONITORING HEPARIN THERAPY, USE THE HEPARIN ASSAY. INR Coag (PPP) [Relative time] 1.0 {INR} 0.9 - 1.1 MG-Otolaryngo [facility] Work Phone: PT Coag (PPP) [Time] 11.6 s 9.8 - 13.4 MG-O tolaryngo [employer] Work Phone: [phone] Laboratory - Hematology and Cell countson 05-12-2022 Erythrocyte distribution width (RBC) [Ratio] 12.4 % See Below MG-Otolaryngo [employer] Work Phone: [phone] Comment on above: Reference Range: 11. 5 - 14.5 Hematocrit (Bld) [Volume fraction] 40.0 % See Below MG-Otolaryngo logy-[employer] Work Phone: [phone] Comment on above: Reference Range: 36. 0 - 46.0 Hemoglobin (Bld) [Mass/Vol] 13.1 g/dL See Below MG-Otolaryngo [employer] Work Phone: [phone] Comment on above: Reference Range: 12. 0 - 16.0 MCHC (RBC) [Mass/Vol] 32.8 g/dL See Below MG- Otolaryngo [employer] Work Phone: [phone] Comment on above: Reference Range: 32. 0 - 36.0 MCV (RBC) [Entitic vol] 94 fL 80 - 100 [facility]Otolaryngo [employer] Work Phone: [phone] Platelets (Bld) [#/Vol] 333 10*3/uL 150 - 450 [facility]Otolaryngo [employer] Work Phone: [phone] RBC (Bld) [#/Vol] 4.27 {x10E12/L} See Below MG -Otolaryngo [employer] Work Phone: [phone] Comment on above: Reference Range: 4.0 0 - 5.20 WBC (Bld) [#/Vol] 7.4 10*3/uL 4.4 - 11.3 MG-Jacek laryngo [employer] Work Phone: No Panel Informationon 05-12 80 {mL/min/1.73m2} >90 MG-Avinger laryngo [facility] Work Phone: Comment on above: CALCULATIONS OF ANNA MATED GFR ARE PERFORMED USING THE 2020 CKD-EPI STUDY REFIT EQUATION WITHOUT THE RACE VARIABLE FOR THE IDMS-TRACEABLE CREATININE METHODS.https://jasn.asnjournals.org/content//A SN.9314691107 0.0 {/100_WBC} 0.0-0.0 MG-Otolary soto [facility] Work Phone: Tobacco Screening.on Fall risk assessment a) No falls within the last year MG-Otolaryngo [facility] 4[address] Work Phone: Tobacco use status [facility] b) No MG-Otolaryngo [facility] 4100 Work Phone: Tobacco Screening.on Fall risk assessment a) No falls within the last year MG-Otolaryngo [facility] Work Phone: Tobacco use status [facility] b) No MG-Otolaryngo [facility] Work Phone: Vital Signs Date Time Vital Sign Value Performing Clinician Faci lity 04-04-2024 14:55-0400 Body height 162.6 cm Edison Evans MD Work Phone: [facility] 04-04-2024 14:55-0400 Body mass index (BMI) [Ratio] 28.32 kg/m2 Edison Evans MD Work Phone: [facility] 04-04-2024 14:55-0400 Body weight 74.84 kg Edison Evans MD Work Phone: [facility] 10-05-2023 15:09-0500 Body height 163.2 cm Edison Evans MD Work Phone: [facility] 10-05-2023 15:09-0500 Body mass index (BMI) [Ratio] 28.61 kg/m2 Edison Evans MD Work Phone: [facility] 10-05-2023 15:09-0500 Body weight 76.2 kg Edison Evans MD Work Phone: [facility] 06-22-2023 08:11-0400 Body height 163.[address] Shamir Sanchez Work Phone: [facility] 06-22-2023 08:10-0400 Body mass index (BMI) [Ratio] 28.4 kg/m2 Dr. Shamir Sanchez Work Phone: [facility] 06-22-2023 08:10-0400 Body weight 75.[address] Shamir Sanchez Work Phone: [facility] 06-22-2023 08:10-0400 Diastolic blood pressure 82 mm[Hg] Dr. Shamir Sanchez Work Phone: [facility] 06-22-2023 08:10-0400 Respiratory rate 17 /min Dr. Shamir Sanchez Work Phone: [facility] 06-22-2023 08:10-0400 Systolic blood pressure 142 mm[Hg] Dr. Shamir Sanchez Work Phone: [facility] 01-26-2023 08:17-0400 Body height 162.56 cm Portillo Sanchez Work Phone: [facility] Work Phone: 01-26-2023 08:17-0400 Body mass index (BMI) [Ratio] 28.65 kg/m2 Portillo Sanchez Work Phone: [facility] 4106 Work Phone: 01-26-2023 08:17-0400 Body surface area Derived from formula 1.81 m2 Portillo Sanchez Work Phone: PY-Rcqosxkgmvtnio-H [facility] 4100 Work Phone: 01-26-2023 08:17-0400 Body weight 75.71 kg Portillo Sanchez Work Phone: QQ-Hvknggbzkvlixa-R [facility] 4100 Work Phone: 06-23-2022 14:51-0400 Body height 162.56 cm Portillo Sanchez Work Phone: UU-Kdvfvptipcmsqb-B [facility] Work Phone: 06-23-2022 14:51-0400 Body mass index (BMI) [Ratio] 27.67 kg/m2 Portillo Sanchez Work Phone: OD-Kjutnohhfdjhjd-U [facility] Work Phone: 06-23-2022 14:51-0400 Body surface area Derived from formula 1.78 m2 Portillo Sanchez Work Phone: DH-Iqndyugiijcjug-W [facility] Work Phone: 06-23-2022 14:51-0400 Body temperature 93.6 [degF] Portillo Sanchez Work Phone: MI-Xpsrxuxiunvbtn-J e[facility] Work Phone: 06-23-2022 14:51-0400 Body weight 73.12 kg Portillo Sanchez Work Phone: YC-Xpqwyotzecgiif-C [facility] Work Phone: 06-16-2022 08:07-0400 Body height 163.[address] Shamir Sanchez Work Phone: [facility] Work Phone: 06-16-2022 08:07-0400 Body mass index (BMI) [Ratio] 27.4 kg/m2 Dr. Shamir Sanchez Work Phone: [facility] Work Phone: 06-16-2022 08:07-0400 Body weight 73.[address] Shamir Sanchez Work Phone: [facility] Work Phone: 06-16-2022 08:07-0400 Diastolic blood pressure 76 mm[Hg] Dr. Shamir Sanchez Work Phone: [facility] Work Phone: 06-16-2022 08:07-0400 Systolic blood pressure 118 mm[Hg] Dr. Shamir Sanchez Work Phone: [facility] Work Phone: 05-12-2022 15:43-0400 Body height 162.56 cm Portillo Sanchez Work Phone: [facility]eb[facility] 4100 Work Phone: 05-12-2022 15:43-0400 Body mass index (BMI) [Ratio] 28.15 kg/m2 Portillo Sanchez Work Phone: [facility] 4100 Work Phone: 05-12-2022 15:43-0400 Body surface area Derived from formula 1.8 m2 Portillo Sanchez Work Phone: [facility] 4100 Work Phone: 05-12-2022 15:43-0400 Body temperature 99 [degF] Portillo Sanchez Work Phone: [facility] 4100 Work Phone: 05-12-2022 15:43-0400 Body weight 74.39 kg Portillo Sanchez Work Phone: TN-Jqsmjtiohvvkmf-S [facility] 4100 Work Phone: 12-30-2021 16:04-0500 Body height 162.56 cm Portillo Sanchez Work Phone: WR-Lxvecingribjll-G [facility] Work Phone: 12-30-2021 16:04-0500 Body mass index (BMI) [Ratio] 27.96 kg/m2 Portillo Sanchez Work Phone: FP-Skcymvqhqjllsy-S [facility] Work Phone: 12-30-2021 16:04-0500 Body surface area Derived from formula 1.79 m2 Portillo Sanchez Work Phone: ZQ-Dqklynjxrcygaw-F [facility] Work Phone: 12-30-2021 16:04-0500 Body temperature 98.2 [degF] Portillo Sanchez Work Phone: WZ-Mdkltxbfmdcqki-R [facility] Work Phone: 12-30-2021 16:04-0500 Body weight 73.89 kg Portillo Sanchez Work Phone: CN-Ilyokecebkjxvp-D e[facility] Work Phone: 06-11-2021 08:51-0400 Body mass index (BMI) [Ratio] 27.3 kg/m2 Dr. Shamir Sanchez Work Phone: [facility] Work Phone: Encounters Encounter Date Encounter Type Care Provider Facility Start: 06-26-2025 End: 06-26-[address] Portillo Sanchez MD Work Phone: -[facility] Start: 06-26-2025 End: 06-26-[address] Portillo Sanchez MD -Laboratory [facility] Start: 06-26-2025 End: 06-26-2025 ambulatory Portillo Sanchez Facility:[facility] Start: 12-12-2024 End: 12-12-2024 ambulatory Portillo Sanchez Facility:[facility] Start: 04-04-2024 End: 04-04-2024 ambulatory [facility] Start: 04-04-2024 End: 04-04-2024 Office outpatient visit 15 minutes Edison Evans MD Work Phone: [facility] Comment on above: Papilloma of orophar ynx (Primary Dx) Start: 12-07-2023 End: 12-07-2023 ambulatory [facility] Work Phone: Start: 12-07-2023 End: 12-07-2023 Patient encounter procedure [facility] Work Phone: Start: 10-05-2023 End: 10-05-2023 ambulatory [facility] Start: 10-05-2023 End: 10-05-2023 Office outpatient visit 10 minutes Edison Evans MD Work Phone: [facility] Comment on above: Tonsillar mass (Prim mindy Dx) Start: 06-22-2023 End: 06-22-[address] Shamir Sanchez Work Phone: [facility] Work Phone: Start: 06-22-2023 End: 06-22-[address] Shamir Sanchez Work Phone: [facility] Work Phone: Start: 06-13-2023 End: 06-13-2023 ambulatory [facility] Work Phone: Start: 06-13-2023 End: 06-13-2023 Patient encounter procedure [facility] Work Phone: Start: 01-26-[address] Shamir Sanchez Facility:[id number] Start: 01-26-2023 Office outpatient vi sit 15 minutes Portillo Sanchez Work Phone: [facility] Work Phone: Start: 12-13-2022 End: 12-13-2022 ambulatory [facility] Work Phone: Start: 12-13-2022 End: 12-13-2022 Patient encounter procedure [facility] Start: 06-24-2022 Chart Update Portillo Sanchez Work Phone: AU-Oxeillcnvxddnr-Jof dman Work Phone: Start: 06-23-2022 Chart Update Portillo Sanchez Work Phone: NK-Abcuqfombvotzb-Ztm dman Work Phone: Start: 06-23-[address] Edison Evans Facility:[id number] Start: 06-16-2022 End: 06-16-[address] Shamir Sanchez Work Phone: [facility] Start: 06-13-[address] Shamir Sanchez Facility:[facility] Start: 06-11-2022 End: 06-11-[address] Shamir Sanchez Work Phone: [facility] Start: 06-02-2022 End: 06-02-[address] Portillo Sanchez Facility:[id number] Start: 05-30-2022 End: 05-30-2022 [facility] Start: 05-27-[address] Shamir Sanchez Facility:[id number] Start: 05-27-2022 Encounter for preprocedural cardiovascular examination Dr. Edison Evans [facility] Start: 05-13-2022 Chart Update Portillo Sanchez Work Phone: AU-Teouiujjttlnge-Cdr dman Work Phone: Start: 05-12-2022 Office outpatient vi sit 15 minutes Portillo Sanchez Work Phone: GC-Qkeaezkjbjvqen-Yst grin [facility] 4100 Work Phone: Start: 05-12-[address] Edison Evans Facility:[id number] Start: 12-30-2021 Office outpatient ne w 30 minutes Portillo Sanchez Work Phone: FI-Vwsbrnheujuwgt-Uxg dman Work Phone: Procedures Date Procedure Procedure Detail Performing Clinician Start: 06-26-2025 Vitamin D, 25-hydrox y measurement Dr. Portillo Sanchez MD Work Phone: Comment on above: Vitamin D StatusDefi ciency: <20 ng/mL (50nmol/L)Insufficiency: 20-30 ng/mL (50-75 nmol/L)Sufficiency: 30-100 ng/mL (75-250 nmol/L)Toxicity: >100 ng/mL (>250 nmol/L) Start: 10-05-2023 Follow-up visit Follow-up EDISON Woodard Start: 06-22-2023 Screening mammography Stephanie Sanchez Work Phone: Start: 06-16-2022 Screening mammography Stephanie Sanchez Work Phone: Viral antigen assay Plan of Treatment Date Care Activity Detail Author Start: 06-11-2031 DTaP/Tdap/Td Vaccines (2 - Td or Tdap) DTaP/Tdap/Td Vaccines (2 - Td or Tdap) [facility] Start: 05-01-2025 End: 05-01-2025 Patient encounter procedure 05/01/2025 3:00 PM EDT Office Visit [facility] [address] [place] [address] [place] [address] [place] [address] [facility] Start: 04-04-2024 End: 04-04-2024 Patient encounter procedure 04/04/2024 3:15 PM EDT Office Visit [facility] [address] [place] [id number] [place] [address] [place], [place] [id number] [facility] Start: 02-28-2024 COVID-19 Vaccine ( season) COVID-19 Vaccine ( season) [facility] Start: 07-13-2023 FUV, Provider: Edison Evans, Status: Pen, Time: 4:00 PM FUV, Provider: Edison Evans, Status: Pen, Time: 4:00 PM XW-Esuxkohqcynbtb-Zfi grin [facility] 410 Work Phone: Start: 01-26-2023 FUV, Provider: Edison Evans, Status: Pen, Time: 8:00 AM FUV, Provider: Edison Evans, Status: Pen, Time: 8:00 AM DO-Cgumiagibkfswg-Iba dman Work Phone: Start: 12-29-2022 FUV, Provider: Edison Evans, Status: Pen, Time: 8:00 AM FUV, Provider: Edison Evans, Status: Pen, Time: 8:00 AM EN-Mmygybagzgqbnz-Tiy dman Work Phone: Start: 11-17-2022 COVID-19 Vaccine (5 - Moderna risk series) COVID-19 Vaccine (5 - Moderna risk series) [facility] Start: 06-16-2022 Liquid based cervical cytology screening [facility] Work Phone: Start: 06-02-2022 [facility], Provider: Edison Evans, Status: Pen, Time: 1:00 PM [facility], Provider: Edison Evans, Status: Pen, Time: 1:00 PM QU-Ymmjqcipuvckkg-Kfh dman Work Phone: Start: 05-12-2022 FUV, Provider: Edison Evans, Status: Pen, Time: 4:00 PM [facility]UV, Provider: Edison Evans, Status: Pen, Time: 4:00 PM ID-Cizmjojdemdewm-Sny dman Work Phone: Start: 10-26-2020 Zoster Vaccines (2 of 2) Zoster Vaccines (2 of 2) [facility] Start: 2018 RSV patients and/or patients aged 60+ years (1 - 1-dose 60+ series) RSV patients and/or patients aged 60+ years (1 - 1-dose 60+ series) [facility] Start: 1998 Screening for malignant neoplasm of breast Mammogram [facility] Start: 1979 Screening for malignant neoplasm of cervix [facility] Start: 1976 Diabetes mellitus screening Diabetes Screening [facility] Start: 1976 Hepatitis C screening Hepatitis C Screening [facility] Start: 1964 Pneumococcal Vaccine: 65+ Years (1 - PCV) Pneumococcal Vaccine: 65+ Years (1 - PCV) [facility] Start: 1959 MMR Vaccines (1 of 1 - Standard series) MMR Vaccines (1 of 1 - Standard series) [facility] Start: 1958 Lipid panel Lipid Panel [facility] Start: 1958 Screening for malignant neoplasm of colon [facility] Start: 1958 Screening for osteoporosis Bone Density Scan [facility] Start: 1958 Yearly Adult Physical Yearly Adult Physical [facility] MG Breast - bilatera l Screening [facility] Payers Date Payer Category Payer Medicare [id number] 2024 Self-pay [id number] 2024 Unknown [id number] 2024 Private Health Insurance [employer] A ETNA [facility] [id number] 2024-Present [address] [place] [address] [id number] 2024 Private Health Insurance [id number] 2023 Unknown 2023 Unknown [id number] 1958 Unknown [id number]. 356 1958 Unknown [id number]. 356 1958 Unknown [id number] [id number]. 356 1958 Unknown [id number] [id number]. 356 1958 Unknown [id number] [id number]. 1046 1958 Unknown [id number] [id number]. 1046 1958 Unknown [id number] [id number]. 1244 1958 Unknown [id number] [id number]. 1244 Unknown [id number]. 462 Unknown [id number]. 462 Social History Date Type Detail Facility Start: 06-11-2021 End: 06-22-2023 Tobacco smoking status MNIS Unknown if ever smoked [facility] Start: 1960 Sex Assigned At Female [facility] Start: 06-22-2023 End: 10-05-2023 Tobacco smoking status NHIS Never smoked tobacco [facility] Work Phone: Start: 10-05-2023 Tobacco use and exposure Smokeless tobacco non-user [facility] Work Phone: Start: 10-05-2023 End: 04-04-2024 History of Social function [facility] Work Phone: Start: 10-05-2023 End: 04-04-2024 Tobacco use panel [facility] Work Phone: Start: 08-16-2023 Gender identity Identifies as female gender (finding) [facility] Work Phone: Start: 08-16-2023 Sexual orientation Heterosexual (finding) [facility] Work Phone: Start: 09-25-2023 End: 04-04-2024 Exposure to SARS-CoV-2 (event) Not sure [facility] Clinical Notes 12-31-2015 to 04-04-2024 Edison Evans MD - 04/04/2024 3:15 PM Dilma Evans MD - 10/05/2023 3:15 PM EST Note Date & Type Note Facility 04-04-2024 History of Present illness Narrative ENT Follow [...] since her is getting chemo for CLL/SLL. 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 Was concerned about some nodularity left tonsil Past Medical History She has no past [...] NCAT right tonsil fossa well healed scar band, no residual or new papilloma Left side normal tonsil, no papillomas neck without masses or LIVIA Last Recorded Vitals Height 1.626 m (5' 4), weight 74.8 kg (165 lb). Assessment and Plan 63 y.o. female with oropharyngeal papillomas S/p excision with path showing mild-mod dysplasia with papilloma -no recurrence or new papillomas -reassured pt that the left tonsil nodularity is normal appearing -RTC in 6 months Edison Evans MD documented in this encounter [facility] Work Phone: 10-05-2023 History of Present illness Narrative ENT [...] Last Recorded Vitals Height 1.632 m (5' 4.25), weight 76.2 kg (168 lb). Assessment and Plan 63 y.o. female with oropharyngeal papillomas S/p excision with path showing mild-mod dysplasia with papilloma -well healed -RTC in 6 months Edison Evans MD documented in this encounter [facility] Work Phone: 06-16-2022 Note [facility] Work Phone: Pap Smear Specimen Adequacy June 16, 2022 9:51am Comment . Satisfactory for evaluation. Endocervical component may not bedistinguished in cases of atrophy. Comment on above: Satisfactory for oscar luation. Endocervical component may not bedistinguished in cases of atrophy. 06-02-2022 Note PROCEDURE DETAILS Preoperative Diagnosis: 1. Papilloma of oropharynx Postoperative Diagnosis: 1. Papilloma of oropharynx Surgeon: Edison Evans Resident/Fellow/Other Job Analyst: Jose Maria Procedure: 1. Revision right tonsillectomy, [...] Last Updated: 02-Jun-2022 08:23 by Edison Evans) [facility] 06-02-2022 Note History & Physical R eviewed: [...] the note. I personally evaluated the patient [id number] Electronic Signatures: Edison Evans) (Signed 02-Jun-2022 07:26) Authored: Note Completion Co-Signer: History & Physical Reviewed, ERAS, Consent, Note Completion Geoff Moise (Resident)) (Signed 02-Jun-2022 07:21) Authored: History & Physical Reviewed, ERAS, Consent, Note Completion Last Updated: 02-Jun-2022 07:26 by Edison Evans) [facility] 01-26-2017 History of Present illness Narrative 61 [...] removal of oropharyngeal papilloma. minimal pain, no [id number] FU: doing well, no complaints today [facility] Work Phone: 05-13-2016 History of Present illness Narrative 61 [...] nasal congestion off an on. no pain PF[facility] Work Phone: 12-31-2015 History of Present illness Narrative 61 yo woman referred by Dr. Pena for evaluation of oropharyngeal papillomas. She first noticed this 5-6 years ago. had right sided tonsillectomy for redundant tissue prior to that. May have slowly grown but not causing any symptoms. No pain, no trouble breathing; no bleeding. This was biopsied showing no malignancy. no bleeding disorders, no cardiac problems. [facility] Work Phone: 12-31-2015 History of Present illness Narrative 61 [address] woman referred by Dr[address] Pena for evaluation of oropharyngeal papillomas. She first noticed this 5-6 years ago. had right sided tonsillectomy for redundant tissue prior to that. May have slowly grown but not causing any symptoms. No pain, no trouble breathing; no bleeding. This was biopsied showing no malignancy. no bleeding disorders, no cardiac problems. [facility] n Work Phone: Chief complaint+Reason for v isit Narrative [facility] Work Phone: Chief complaint+Reason for visit Narrative* Chief Complaint COVID-19 VIRUS DETEC TION SCREENING Annual (LOGISTICS OPERATIONS DIRECTOR) Reason for Visit Atrophic vaginitis HPV (human papilloma virus) infection Encounter for routine gynecological examination [facility] Work Phone: Evaluation noteNo assessment information available [facility] Work Phone: Evaluation note* Diagnosis Onset Date Resolution Status Atrophic vaginitis acute HPV (human papilloma virus) infection acute Encounter for routine gynecological examination noneactive [facility] Work Phone: Evaluation note* Diagnosis Onset Date Resolution Status Anxiety and depression acute Atrophic vaginitis acute HPV (human papilloma virus) infection acute Encounter for routine gynecological examination noneactive [facility] Work Phone: Evaluation note* Diagnosis Tonsillar mass- Primary documented in this encounter [facility] Work Phone: Evaluation note* Diagnosis Papilloma of oropharynx- Primary documented in this encounter [facility] Work Phone: Reason for referral (narrative)No reason for referral information availableWMer[facility] Work Phone: 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 upfollow up Family History No Family History Records Found Relationship Condition Age at Onset Recorded Date/T mark mother Malignant neoplasm Unknown Not Specified Malignant neoplasm of breast Unknown Relationship Condition Age at Onset Recorded Date/T mark mother Malignant neoplasm Unknown unrelated friend Malignant neoplasm of breast Unknown Summary Purpose Advance Directives No Advanced Directives Records FoundDocuments on File Type Date Recorded Patient Pharmacist Hospital Expl anation Healthcare Power of Atty 06/02/2022 Living Will 06/02/2022 Chief Complaint and Reason for Visit Chief Complaint breast cancer screen ing Annual (LOGISTICS OPERATIONS DIRECTOR) Reason for Visit Anxiety and depressi on Atrophic vaginitis HPV (human papilloma virus) infection Encounter for routine gynecological examination Chief Complaint INT LABS Additional Source Comments Goals (unrecognized section and content) Goals may be documented in a n alternate sectionGoals may be documented in an alternate sectionGoals may be documented in an alternate sectionGoals may be documented in an alternate sectionGoals may be documented in an alternate sectionGoals may be documented in an alternate sectionGoals may be documented in an alternate sectionGoals may be documented in an alternate section Care Teams (unrecognized sec tion and content) Team Status: Active Member Role Status Dates Dr. Shamir Sanchez MD Family Provider Active Dr. Shamir Sanchez MD Primary Care Provider Activ e Team Status: Inactive Member Role Status Dates Dr. Shamir Sanchez MD Primary Care Provider, Atte nding Provider Active Team Status: Inactive Member Role Status Dates Dr. Shamir Sanchez MD Primary Care Provider, Refe rring Provider Active Marlys Louie SIGN POSTER, SIGN POSTER-C Attending Provider Active Team Status: Inactive Member Role Status Dates Dr. Shamir Sanchez MD Primary Care Provider Activ e Marlys Louie SIGN POSTER, SIGN POSTER-C Attending Provider, Referring Provider Active Eyeglass Maker Relationship Specialty Start Date End Date Portillo Sanchez MD [facility] [address]osh[address] [place] [address] PCP - General 12/30/21 Team Status: Inactive Member Role Status Dates Dr. Shamir Sanchez MD Primary Care Provider, Attending Provider, Referring Provider Active Eyeglass Maker Relationship Specialty Start Date End Date Portillo Sanchez MD PCP - General 12/30/21 Team Status: Active Member Role/Relationship Status Dates Dr. Portillo Sanchez MD Family Provider Active Dr. Portillo Sanchez MD Primary Care Provider Acti ve Team Status: Inactive Member Role/Relationship Status Dates Dr. Portillo Sanchez MD Primary Care Provider Acti ve Start: June 26, 2025 End: June 26, 2025 Dr. Portillo Sanchez MD Attending Provider Active Start: June 26, 2025 End: June 26, 2025 INFORMATION SOURCE (unrecogn ized section and content) DATE CREATED AUTHOR 01/26/2023 [facility] DATE CREATED AUTHOR AUTHOR'S ORGANIZ ATION 01/26/2023 [employer] DATE CREATED AUTHOR AUTHOR'S ORGANIZ ATION 02/13/2023 [facility] DATE CREATED AUTHOR AUTHOR'S ORGANIZ ATION 04/06/2024 [facility] DATE CREATED AUTHOR AUTHOR'S ORGANIZ ATION 07/02/2025 [facility] Reason for Visit (unrecogniz ed section and content) Reason Comments Follow-up 6 month follow up vi sit. Reason Comments Follow-up 6 month follow up. FOR RECORDS PERTAINING TO PATIENTS WHO ARE [...] BE BASED ON THE PRIMARY CLINICAL RECORDS. [facility] [employer] provides no warranty or guarantee of the accuracy or completeness of information in this document.
--- NOTE | 2025-07-10 07:45 | BI_ITS ---
EXAM: SCRN MAMM (CAD)W/SAMARIA BILAT DATE: 07/10/2025 CLINICAL HISTORY: F, Age 64 y/o , BREAST CANCER SCREENING TECHNIQUE: SCRN MAMM (CAD)W/SAMARIA BILAT COMPARISON: Prior exam(s) dated 06/27/2024, 06/22/2023 and 06/16/2022. FINDINGS: TISSUE DENSITY: There are scattered areas of fibroglandular density. Bilateral Breast Mammographic Findings: There are no suspicious masses, suspicious clustered microcalcifications, architectural distortion or secondary signs of malignancy identified in either breast. BI/SCRN MAMM (CAD)W/SAMARIA BILAT IMPRESSION: Stable bilateral screening mammogram. OVERALL FINAL ASSESSMENT BI-RADS 1: NEGATIVE. RECOMMENDATION: Routine annual follow-up in 1 Year A letter with findings and recommendations will be mailed to the patient. Reading Location: [id number]
== END | disposition home or self-care (01) ==
LOC: OPBI 07:22
PROVIDERS: PCP Family Medicine; Referring Provider Nurse Practitioner Women's Health; Visit Provider Nurse Practitioner Women's Health
DX: Z12.31 Encounter for screening mammogram for malignant neoplasm of breast (principal)
CPT/HCPCS: 77063; 77067

== ENCOUNTER → 2025-07-10 | Outpatient (CLI) | payer MEDICARE, OTHER, SELFPAY ==
[2025-07-12 12:08] LABS: HPV APTIMA, High Risk Negative (Negative)
== END | disposition home or self-care (01) ==
PROVIDERS: PCP Family Medicine; Referring Provider Nurse Practitioner Women's Health; Visit Provider Nurse Practitioner Women's Health
DX: Z12.4 Encounter for screening for malignant neoplasm of cervix (principal); B97.7 Papillomavirus as the cause of diseases classified elsewhere
CPT/HCPCS: 87624; 88175; G0145

== ENCOUNTER → 2025-08-15 | Outpatient (CLI) | payer MEDICARE, OTHER, SELFPAY ==
--- OUTSIDE RECORDS SUMMARY | 2025-08-17 19:34 | XMS RPT_ITS | CCD ---
Author Organization [facility] Care Team Providers Care Imitation Marble Mechanic Name Role Phone Portillo Sanchez Unavailable Unavailable Unavailable Dr. Shamir Sanchez Primary Care Provider [phone] Dr. Shamir Sanchez Referring Provider Liban CONCRETE PIPE MACHINE OPERATOR, GRETCHEN Frankel Attending Provider [phone] Portillo Sanchez Primary Care Terri vailable Dr. Edison Evans Referring Unavailable Daniel, Dr. Portillo Flannery Primary Care Terri vailable Cristina, Dr. London Attending Unavailable Cristina, Dr. London Attending Unavailable Cristina, Dr. London Referring Unavailable Daniel, Dr. Portillo Flannery Primary Care Terri vailaambrosio Sanchez, Dr. Portillo Flannery Primary Care Terri vailable Daniel, Dr. Portillo Flannery Referring Terri vailable Cristina, Dr. London Attending Unavailable Daniel, Dr. Portillo Flannery Primary Care Terri vailable Cristina, Dr. London Admitting Unavailable Cristina, Dr. London Referring Unavailable Cristina, Dr. London Attending Unavailable Daniel, Dr. Portillo Flannery Primary Care Terri vailable Cristina, Dr. London Attending Unavailable Daniel, Dr. Barksdale Primary Care Provider Dr. Shamir Sanchez Referring Provider Liban CONCRETE PIPE MACHINE OPERATOR, GRETCHEN Frankel Attending Provider Portillo Sanchez MD Primary Care Provide r Portillo Sanchez MD Primary Care Provide r EDISON EVANS Attending Unavailable PORTILLO SANCHEZ Primary Care Unavail able EDISON EVANS Attending Unavailable PORTILLO SANCHEZ AMMON Primary Care Unavail able Daniel URIBE, Dr. Castillo Primary Care Provider Daniel URIBE, Dr. Castillo Attending Provider [phone] Liban CONCRETE PIPE MACHINE OPERATOR-C, Marlys Attending Provider Liban CONCRETE PIPE MACHINE OPERATOR-C, Marlys Referring Provider Daniel URIBE, Dr. Castillo Referring Provider Portillo Sanchez Primary Care Unavailable Liban CONCRETE PIPE MACHINE OPERATOR, Marlys Attending Unavailable [place] CONCRETE PIPE MACHINE OPERATOR, Marlys Referring Unavailable Portillo Sanchez Referring Unavailable Daniel [facility] [place] Primary Care Unavailable Daniel, Portillo Attending Unavailable Daniel [facility] Primary Care Unavailable Portillo Sanchez Attending Unavailable Portillo Sanchez Referring Unavailable [place] CONCRETE PIPE MACHINE OPERATOR, Marlys Attending Unavailable Daniel [facility] [place] Primary Care Unavailable Portillo Sanchez Primary Care Unavailable [place] CONCRETE PIPE MACHINE OPERATOR, Marlys Attending Unavailable [place] CONCRETE PIPE MACHINE OPERATOR, Marlys Referring Unavailable Allergies Allergy Classification Reported Allergen(s) Allergy Type Date of Onset Reaction(s) Facility (7 sources) Penicillins; Translations: [Penicillins] Allergy to drug (finding) 5 [facility] 3 Repository (11 sources) Penicillin G Drug Allergy 1 Other [facility] (3 sources) Estradiol / Norethindrone; Translations: [ESTRADIOL-NORE THINDRONE ACET] Drug Allergy 4 Other [facility] (2 sources) Penicillins Drug Intolerance 5 Swelling, Other, Unknown [facility] Work Phone: (1 source) Penicillin Drug Allergy 5 [facility] Repository Medications Current Medications Medication Drug Class(es) Dates Sig (Normalized) Sig (Original) atorvastatin 20 mg oral tablet (20 sources) HMG-CoA Reductase Inhibitor Start: 01-08-2021 take 1 tablet by mouth three times weekly Atorvastatin (Lipitor) 20 mg tablet Active 20 mg PO .COMPLEX June 11, 2021 12:00am 20 mg PO 3 times per week; Start: 01-08-2021 Atorvastatin C alcium 20 MG Oral Tablet Quantity: 30 Refills: 0 Ordered: 06-Feb-2021 DO Start : 08-Jan-2021 Active bifidobacterium animalis [id number] unt / lactobacillus acidophilus [id number] unt oral capsule (9 sources) L. acidophilus/B ifid. animalis 32 billion cell capsule Take by mouth. Active biotin 2.5 mg oral capsule (18 sources) Start: 12-28-2017 take 1 capsule by mouth once Biotin 2,500 mcg capsule Active 2500 ug PO ONCE December 28, 2017 1:00am Biotin 55816 MCG Oral Tablet Quantity: 0 Refills: 0 Ordered: 30-Dec-2021 DO Active cholecalciferol 0.025 mg oral capsule (20 sources) Vitamin D Start: 06-05-2020 take 1 [...] / vitamin b12 0.5 mg oral tablet (11 sources) Vitamin B12 Start: 12-28-2017 Vitamin B12-Fo lic Acid 500-400 mcg tablet Active 1 {tbl} PO daily December 28, 2017 1:00am lansoprazole 30 mg delayed release oral capsule (19 sources) Proton Pump Inhibitor Start: 06-16-2022 Lansoprazole (Prevacid) 30 mg capsule,delayed release(DR/EC) Active 15 mg PO DAILY June 16, 2022 12:00am lansoprazole (Pr evacid) [address] capsule Take 1 capsule (15 mg) by mouth. Active Lansoprazole 15 MG Oral Capsule Delayed Release Quantity: 0 Refills: 0 Ordered: 30-Dec-2021 DO Active lisinopril 5 mg oral tablet (20 sources) Angiotensin Converting Enzyme Inhibitor Start: 12-31-2020 take 1 tablet by mouth once daily Lisinopril 5 mg tablet Active 5 mg PO DAILY June 11, 2021 12:00am Start: 12-31-2020 Lisinopril 5 M G Oral Tablet Quantity: 30 Refills: 0 Ordered: 05-Feb-2021 DO Start : 31-Dec-2020 Active loratadine 10 mg oral tablet (10 sources) Start: 06-16-2022 take 1 tablet by mouth once daily Loratadine (Claritin) 10 mg tablet Active 10 mg PO DAILY June 16, 2022 12:00am Mo-Zu-Ze-Vit B-Gnzcm-Gqug-Zeax (Ocuvite Eye Plus Multi) 200-15-150 mcg tablet (11 sources) Start: 01-24-2019 Kl-Gs-Ro-Vit G-Jydzp-Dicw-Zeax (Ocuvite Eye Plus Multi) 200-15-150 mcg tablet Active 2 {tbl} PO DAILY January 24, 2019 12:00am Start: 01-24-2019 take 2 tablets by mo uth once daily Qu-Uy-Cl-Vit R-Bhnaf-Tlsq-Zeax (Ocuvite Eye Plus Multi) 200-15-150 mcg tablet Active 2 TABLET PO DAILY January 23, 2019 11:00pm Start: 01-24-2019 take 2 tablets by mo [facility] once daily Gq-Ll-Zp-Vit M-Gavtf-Puyq-Zeax (Ocuvite Eye Plus Multi) 200-15-150 mcg tablet [...] oral solution (5 sources) alpha-Adrenergic Agonist, Uncompetitive Y-tmmibn-G-aspartat e Receptor Antagonist, Sigma-1 Agonist Start: 04-22-2022 Pseudoeph-Gregge n-DM 30-2-10 MG/5ML Oral Syrup Quantity: 240 Refills: 0 Ordered: 22-Apr-2022 DO Start : 22-Apr-2022 Active Svkfvxn-Qgg-Zqw A2-B2-Vvspueog (Calcium Citrate + D With Mag) 966-26-1-125 ir-qz-ex-unit tablet (4 sources) Start: 12-28-2017 End: 01-24-2019 Scglbxh-Zuf-Zdh J4-F3-Xiaaubfy (Calcium Citrate + D With Mag) 440-07-8-125 ge-tc-ht-unit tablet Discontinued 1 {tbl} PO TWICE A DAY December 28, 2017 1:00am January 24, 2019 8:06am svhdvng-bwz-hus Q3-R0-rcusyqog 250 mg-40 mg-5 mg-125 unit tablet (7 sources) Start: 12-28-2017 End: 01-24-2019 take 1 tablet by mouth twice daily xkacash-vzt-yky C5-M0-nlerjyqk 250 mg-40 mg-5 mg-125 unit tablet Discontinued 1 TABLET PO TWICE A DAY December 28, 2017 12:00am January 24, 2019 7:06am Start: 12-28-2017 End: 01-24-2019 take 1 tablet by mouth twice daily pvcfvee-grk-xyc J2-W2-iktvpkwp 250 mg-40 mg-5 mg-125 unit tablet Discontinued 1 TABLET PO TWICE A DAY December 28, 2017 1:00am January 24, 2019 8:06am Garlic (11 sources) Non-Standardized Food Allergenic Extract Start: 12-28-2017 [...] No.8 (Adult Probiotic) 3 billion cell capsule (11 sources) Start: 01-24-2019 End: 06-05-2020 take 3 [...] 2020 8:10am lutein 6 mg oral capsule (11 sources) Start: 12-28-2017 End: 01-24-2019 take 1 capsule by mouth once daily Lutein 6 mg capsule Discontinued 6 mg PO daily December 28, 2017 1:00am January 24, 2019 8:06am [place]-3 Fatty Acids (Fish Oil Concentrate) 1,000 mg capsule (11 sources) Start: 01-24-2019 End: 06-11-2021 take 1 capsule by mouth once daily [place]-3 Fatty Acids (Fish Oil Concentrate) 1,000 mg capsule Discontinued 1000 mg PO DAILY January 24, 2019 12:00am June 11, 2021 8:49am Start: 01-24-2019 End: 06-11-2021 take 1 capsule by mouth once daily [place]-3 Fatty Acids (Fish Oil Concentrate) 1,000 mg capsule Discontinued 1000 MG PO DAILY January 23, 2019 11:00pm June 11, 2021 7:49am Start: 01-24-2019 End: 06-11-2021 take 1 capsule by mouth once daily [place]-3 Fatty Acids (Fish Oil Concentrate) 1,000 mg capsule Discontinued 1000 MG PO DAILY January 24, 2019 12:00am June 11, 2021 8:49am orlistat 60 mg oral capsule (11 sources) Intestinal Lipase Inhibitor Start: 12-28-2017 End: 01-24-2019 take 1 capsule by mouth three times daily Orlistat (Angel) 60 mg capsule Discontinued 60 mg PO THREE TIMES A DAY December 28, 2017 1:00am January 24, 2019 8:06am polyethylene glycol 3350 05270 mg powder for oral solution (3 sources) [...] 24hr Discontinued 37.5 mg PO daily 90 October 28, 2017 1:00am January 24, 2019 [...] tonsils and adenoids] 10-05-2023 Chronic Anxiety disorders (9 sources) Mixed anxiety and depressive disorder; Translations: [Anxiety disorder, unspecified] 06-22-2023 Chronic Comment on above: effexor per PCP effexor per PCP; in counseling Disorders of lipid metabolism (2 sources) Hyperlipidemia, unspecified; Translations: [Hyperlipidemia, unspecified] Onset: 06-02-2022 Chronic Essential hypertension (1 source) Essential (primary) hypertension; Translations: [Essential (primary) hypertension] Onset: 06-02-2022 Chronic Menopausal disorders (16 sources) Atrophic vaginitis; Translations: [Postmenopausal atrophic vaginitis] Chronic Comment on above: estradiol cream estradiol cream/comp ounded twice a week Mood disorders (1 source) Mood disorders; Translations: [Depression, unspecified] Onset: 06-02-2022 Other and unspecified benign neoplasm (8 sources) Benign neoplasm of oropharynx; Translations: [Benign neoplasm of other parts of oropharynx] 04-04-2024 Episodic Other gastrointestinal disorders (1 source) Irritable bowel syndrome without diarrhea; Translations: [Irritable bowel syndrome without diarrhea] Onset: 06-02-2022 Chronic Other screening for suspected conditions (not mental disorders or infectious disease) (2 sources) Encounter for screening for malignant neoplasm of cervix; Translations: [Encounter for screening mammogram for malignant neoplasm of breast] Onset: 07-14-2025 Episodic Viral infection (15 sources) Human papilloma virus infection; Translations: [Papillomavirus as the cause of diseases classified elsewhere] Episodic Comment on above: throat, mass removed . Neg pap and HPV 2021 throat, mass removed . Neg pap and HPV 2024: Past or Other Problems Problem Classification Problem Date Documented Da te Episodic/Chronic Other aftercare (1 source) Other music adapter (current) drug therapy; Translations: [Other music adapter (current) drug therapy] Onset: 05-27-2022 Episodic Other and unspecified benign neoplasm (2 sources) Benign neoplasm of other parts of oropharynx; Translations: [Benign neoplasm of other parts of oropharynx] Onset: 06-02-2022 Episodic Unclassified (2 sources) Onset: 10-05-2023 Resolved: 04-04-2024 10-05-2023 Results Test Name Value Interpretation Reference Range Facility PAP IG HPV APTIMA 16/18,45on 07-12-2025 ADEQ Comment Normal . [facility] Comment on above: Order Comment: Speci men Comment: [id number] Specimen Comment: No. of containers..01 ThinPrep Vial Result Comment: Sati sfactory for evaluation. Endocervical and/or squamous metaplastic cells (endocervical component) are present. Performed By: #### L 7400.0280 #### [facility] [address] [place], [address] COMM . Normal . [facility] Comment on above: Order Comment: Speci men Comment: [id number] Specimen Comment: No. of containers..01 ThinPrep Vial Performed By: #### L 7400.0280 #### [facility] [address] [place], [place], [id number] COMMENT Comment Normal . [facility] Comment on above: Order Comment: Speci men Comment: [id number] Specimen Comment: No. of containers..01 ThinPrep Vial Result Comment: This liquid based ThinPrep(R) pap test was screened with the use of an image guided system. Performed By: #### L 7400.0280 #### [facility] [address] [place], [place], [id number] DIAG Comment Normal . [facility] Comment on above: Order Comment: Speci men Comment: [id number] Specimen Comment: No. of containers..01 ThinPrep Vial Result Comment: NEGA TIVE FOR INTRAEPITHELIAL LESION OR MALIGNANCY. CELLULAR CHANGES ASSOCIATED WITH ATROPHY ARE PRESENT. Performed By: #### L 7400.0280 #### [facility] [address] [place], [address] HPV APTIMA, HR Negative Normal Negative [facility] Comment on above: Order Comment: Speci men Comment: [id number] Specimen Comment: No. of containers..01 ThinPrep Vial Result Comment: This nucleic acid amplification test detects fourteen high- risk HPV types (16,18,31,33,35,39,45,51,52,56,58,59,66,68) without differentiation. Performed By: #### L 7400.0280 #### [facility] [address] [place], [address] HPV Brianna Rfx Comment Normal . [facility] Comment on above: Order Comment: Speci men Comment: [id number] Specimen Comment: No. of containers..01 ThinPrep Vial Result Comment: Crit erfrancoise not met, HPV Genotype not performed. Performed at: WB - [facility] [address] [id number] Obiee Obia Solution Architect: Debby Harrington MD, Phone: [phone] Performed at: =G - [facility] [address], [place] [id number] Obiee Obia Solution Architect: Debby Harrington MD, Phone: [phone] Performed By: #### L 7400.0280 #### [facility] [address] [place], [place], [address] PAPSMR Comment Normal . [facility] Comment on above: Order Comment: Speci men Comment: [id number] Specimen Comment: No. of containers..01 ThinPrep Vial Result Comment: The Pap smear is a screening test designed to aid in the detection of premalignant and malignant conditions of the uterine cervix. It is not a diagnostic procedure and should not be used as the sole means of detecting cervical cancer. Both false-positive and false-negative reports do occur. Performed By: #### L 7400.0280 #### [facility] [address] [place], [place], [id number] PERFORM Comment Normal . [facility] Comment on above: Order Comment: Speci men Comment: [id number] Specimen Comment: No. of containers..01 ThinPrep Vial Result Comment: Kamilla Alarcon, Chief Accounting Officer Performed By: #### L 7400.0280 #### [facility] [address] [place], [place], [address] Breast imaging reportOrdered By: Michelle Munguia on 07-10-2025 Study report [facility] Imaging Services [address] [place], [place] [address] SCRN MAMM (CAD)W/SAMARIA ACEVES MR#: [id number] Acct: [id number] Name: LETITIA MALONE Rep #: [id number] : 1960 F 64 From: Farooq Munguia DO PCP: Dr. Portillo Sanchez MD Status: [facility] CLI Study:SCRN MAMM (CAD)W/SAMARIA BILAT Date of Exa m: 07/10/25 Exam# [id number] Ordering Dr: Marlys Louie NP CONCRETE PIPE MACHINE OPERATOR-C EXAM: SCRN MAMM (CAD)W/SAMARIA BILAT DATE: 07/10/2025 CLINICAL HISTORY: F, Age 64 y/o , BREAST CANCER SCREENING TECHNIQUE: SCRN MAMM (CAD)W/SAMARIA BILAT COMPARISON: Prior exam(s) dated 06/27/2024, 06/22/2023 and 06/16/2022. FINDINGS: TISSUE DENSITY: There are scattered areas of fibroglandular density. Bilateral Breast Mammographic Findings: There are no suspicious masses, suspicious clustered microcalcifications, architectural distortion or secondary signs of malignancy identified in either breast. BI/SCRN MAMM (CAD)W/SAMARIA BILAT IMPRESSION: Stable bilateral screening mammogram. OVERALL FINAL ASSESSMENT BI-RADS 1: NEGATIVE. RECOMMENDATION: Routine annual follow-up in 1 Year A letter with findings and recommendations will be mailed to the patient. Reading Location: [id number] CC: CONCRETE PIPE MACHINE OPERATOR-C Marlys Louie; Dr. Portillo Sanchez MD ~ Admissions Manager Rn: Signed [facility] Cervical or vaginal specimen microscopic examination by liquid based cytology (reportOrdered By: Marlys Louie on 07-10-2025 Cytology report Cyto stain.thin prep Doc (Cvx/Vag) Comment . [facility] Comment on above: Criteria not met, HP V Genotype not performed.Performed at: - [facility] [id number] Director: Debby Harrington MD, Phone: [phone] at: = - [facility] [id number] Director: Debby Harrington MD, Phone: [phone] Cervical or vagninal specime n microscopic examination by cytology stain (reported asOrdered By: Marlys Louie on 07-10-2025 Cytology report Cyto stain Doc (Cvx/Vag) Comment . [facility] Comment on above: The Pap smear is a s creening test designed to aid in thedetection of premalignant and malignant conditions of theuterine cervix. It is not a diagnostic procedure andshould not be used as the sole means of detecting cervicalcancer. Both false-positive and false-negative reports dooccur. Detection in cervical specim en of any of human papilloma virus (HPV) 16, 18, 31, 33,Ordered By: Marlys Louie on 07-10-2025 HPV 16+18+31+33+35+39+45+5 1+52+56+58+59+66+68 DNA Probe+sig amp Ql (Cvx) Negative Negative [facility] Comment on above: This nucleic acid am plification test detects fourteen high- risk HPV types (16,18,31,33,35,39,45,51,52,56,58,59,66,68)without differentiation. Laboratory - CytologyOrdered By: Marlys Louie on 07-10-2025 Chief Accounting Officer Cyto stain Nom (Cvx/Vag) [ID] Comment . [facility] Comment on above: Sergey Olivier tologcammy Laboratory - Miscellaneous t estsOrdered By: Marlys Louie on 07-10-2025 Service comment (Unsp spec) [Interp] . . [facility] No Panel InformationOrdered By: Marlys Louie on 07-10-2025 Pap Smear Specimen Adequacy Comment . [facility] Comment on above: Satisfactory for oscar luation. Endocervical and/or squamous metaplasticcells (endocervical component) are present. Medical Insurance Verifier Office Visit Reporton 07-10-2025 Medical Insurance Verifier Office Visit Report [facility] [address], [address] [place] [address] OFFICE VISIT Date of Service: 07/10/25 MR#: [id number] Acct: [id number] Name: FAISALLETITIA NGUYEN Rep #: [id number] : 1960 Provider: GRETCHEN messina Age/Sex: 64/F [place] [facility] [place] Status: Signed Intake Vital Signs 06/27/24 08:20 07/10/25 08:02 07/10/25 08:07 Height 5 ft 4.25 in 5 ft 4.25 in 5 ft 4.25 in Weight: 166 lb 9 oz BMI 28.3 BP 132/82 H Intake Visit Reasons: Annual ([employer]) Chief Complaint: Annual Cork Sorter Required: No Is patient in pain?: No Allergies penicillin G Allergy (Mild, Verified 07/10/25 08:02) Other Medications ???Medication ???Instructions ???Recorded ???Confirmed ???Type biotin 2,500 mcg capsule 2,500 mcg PO ONCE 12/28/17 5 History vitamin B12 500 mcg-folic acid 400 1 tab PO QDAY 12/28/17 07/10/25 History mcg tablet wtrsubkb-bja-[place] 200 mcg-vit K 15 2 tab PO DAILY 01/24/19 07/10/25 H istory mcg-lycope 150 kgr-crpott-udlg tablet (Ocuvite Eye Plus Multi) cholecalciferol (vitamin D3) 25 5,000 unit PO BID 06/05/20 5 History mcg (1,000 unit) capsule atorvastatin 20 mg tablet (Lipitor) 20 mg PO .COMPLEX 06/11/2106/17 History lisinopril 5 mg tablet 5 mg PO DAILY 06/11/21 07/10/25 Hi story lansoprazole 30 mg capsule,delayed 15 mg PO DAILY 06/16/22 07/10/25 History release (Prevacid) loratadine 10 mg tablet (Claritin) 10 mg PO DAILY 06/16/22 07/10/25 History venlafaxine 37.5 mg 75 mg (2 x 37.5 mg) PO DAILY #90 1 07/10/25 Rx capsule,extended release 24 hr caps (Effexor XR) estradiol 0.01% (0.1 mg/gram) See Rx Instructions vaginal 07/10/25 Rx vaginal cream (Estrace) .COMPLEX #42.5 grams Is last menstrual period known: No Post menopausal: Yes Patient : No : No PFSH Medical History Degenerative disk disease Graves disease Surgical History History of throat surgery History of tonsillectomy Family History Mother Cancer leukemia Unknown Breast cancer cousin female Social History (Updated 07/10/25 @ 08:37 by Marlys Louie NP, CONCRETE PIPE MACHINE OPERATOR-C) household members: none current occupational status: employed sexually active: No Smoking Status: Never smoker alcohol intake: never substance use type: does not use well-balanced diet: daily or most days caffeine: Yes what type of physical activity do you participate in: running and weight training frequency: 5-6 times per week seatbelt use: always do you feel safe at home: Yes additional social history: Jean Marie-. 07/2024 lymphoma Patient works at [employer] History 0 Elective abortions Hx Para Spontaneous abortions Hx # Term Pregnancies Ectopic pregnancies Hx # Pregnancies Multiple births # of living children HPI Encounter for routine gynecological examination Details: LETITIA MALONE is a 64 year old who presents for annual exam. Needs refill estradiol cream although cost is more of concern Guillermo passed 07/18/2024. Difficult year. Sees therapist. Sister supportive. Tearful/states house too quiet. Last PAP: 2021 History of abnormal PAP: +HPV hx Last mammogram: today pending History of abnormal mammogram: no Colon cancer screening: due Other preventative health care screenings: Daniel Female Reproductive History Questions: metrorrhagia: No and sexually active: No ROS Const Constitutional: Denies fatigue, weight gain or weight loss Cardio Card: Denies chest pain Resp Resp: Denies cough or dyspnea on exertion GI GI: Denies abdominal pain, bloating, change in stool character, constipation or vomiting : Reports as per HPI; Denies difficulty voiding, pelvic pain, urinary frequency, urinary incontinence, urinary urgency, vaginal discharge or vaginal pruritus Exam Const General: cooperative, healthy appearing, no acute distress and well developed Orientation: alert, oriented to person and oriented to place HENGA Head: normal to inspection Neck Neck: normal visual inspection Thyroid: thyroid normal Lymphatic: no lymphadenopathy noted Chest Breast inspection: normal inspection of the breasts and normal inspection of the axillae Breast palpation: normal palpation of the breasts, normal palpation of the axillae and no axillary lymphadenopathy Resp Effort Inspection: normal respiratory effort GI Palpation: soft, no masses and nontender Rectal Exam: deferred External Female Exam: normal external appearance and normal appearance of the urethra Urethra: normal appearance of the urethra (more content not included)... Normal [facility] SCRN MAMM (CAD)W/SAMARIA BILATo n 07-10-2025 SCRN MAMM (CAD)W/SAMARIA BILAT [facility] Imaging Services [address] [place] [address] SCRN MAMM (CAD)W/SAMARIA BILAT MR#: [id number] Acct: [id number] Name: LETITIA MALONE Rep #: [id number] : 1960 F 64 From: Michelle Johnson PCP: Dr. Portillo Sanchez MD Status: REG CLI Study: SCRN MAMM (CAD)W/SAMARIA BILAT Date of Exam: 06/17 04/09 Exam# [id number] Ordering Dr: Marlys Louie NP CONCRETE PIPE MACHINE OPERATOR -C EXAM: SCRN MAMM (CAD)W/SAMARIA BILAT DATE: 07/10/2025 CLINICAL HISTORY: F, Age 64 y/o , BREAST CANCER SCREENING TECHNIQUE: SCRN MAMM (CAD)W/SAMARIA BILAT COMPARISON: Prior exam(s) dated 06/27/2024, 06/22/2023 and 06/16/2022. FINDINGS: TISSUE DENSITY: There are scattered areas of fibroglandular density. Bilateral Breast Mammographic Findings: There are no suspicious masses, suspicious clustered microcalcifications, architectural distortion or secondary signs of malignancy identified in either breast. BI/SCRN MAMM (CAD)W/SAMARIA BILAT IMPRESSION: Stable bilateral screening mammogram. OVERALL FINAL ASSESSMENT BI-RADS 1: NEGATIVE. RECOMMENDATION: Routine annual follow-up in 1 Year A letter with findings and recommendations will be mailed to the patient. Reading Location: [id number] CC: CONCRETE PIPE MACHINE OPERATOR-Georgi Louie; Dr. Portillo Sanchez MD Admissions Manager Rn: Signed Normal [facility] Anion gap in Serum or Plasma Ordered By: Portillo Sanchez on 06-26-2025 Anion gap [Moles/Vol] 13 mmol/L 5-15 [facility] BUN/creatinine ratioOrdered By: Portillo Sanchez on 06-26-2025 Urea nitrogen/Creatinine [Mass ratio] 30.8 mg/mg High 10-20 [facility] Bilirubin, totalOrdered By: Portillo Sanchez on 06-26-2025 Bilirubin [Mass/Vol] 0.51 mg/dL 0.00-1.30 [facility] Calculated very low density lipoprotein (VLDL) cholesterol measurementOrdered By: Portillo Sanchez on 06-26-2025 Calculated very low density lipoprotein (VLDL) cholesterol measurement 14 mg/dL 5-40 [facility] Carbon dioxide, total [Moles /volume] in Central venous bloodOrdered By: Portillo Sanchez on 06-26-2025 CO2 [Moles/Vol] 21.6 mmol/L 21.0-32.0 [facility] Chloride assayOrdered By: Francisco Sanchez on 06-26-2025 Chloride [Moles/Vol] 104 mmol/L 98-108 [facility] Comprehensive Metabolic Prof ilon 06-26-2025 Albumin [Mass/Vol] 4.2 g/dL Normal 3.4-4.8 [facility] Comment on above: Order Comment: Order Date: 06/14/25 Order Info: 0786-1 - CMP Order Info: [id number] - LIPID Performed By: #### L 500.4050, L500.4100 #### [facility] [address], [place], [id number] Albumin/Globulin [Mass ratio] 1.5 {ratio} Normal 0.9-2.4 [facility] Comment on above: Order Comment: Order Date: 06/14/25 Order Info: 0786-1 - CMP Order Info: [id number] - LIPID Performed By: #### L 500.4050, L500.4100 #### [facility] [address] [place], [address] ALK PHOS 92 U/L Normal 35-104 [facility] Comment on above: Order Comment: Order Date: 06/14/25 Order Info: 0786-1 - CMP Order Info: [id number] - LIPID Performed By: #### L 500.4050, L500.4100 #### [facility] [address] [place], [address] ALT [Catalytic activity/Vol] 16 U/L Normal <=34 [facility] Comment on above: Order Comment: Order Date: 06/14/25 Order Info: 0786-1 - CMP Order Info: [id number] - LIPID Performed By: #### L 500.4050, L500.4100 #### [facility] [address] [place], [address] AST [Catalytic activity/Vol] 20 U/L Normal <=31 [facility] Comment on above: Order Comment: Order Date: 06/14/25 Order Info: 07-1 - CMP Order Info: [id number] - LIPID Performed By: #### L 500.4050, L500.4100 #### [facility] [address] [place], [address] Bilirubin [Mass/Vol] 0.51 mg/dL Normal 0.00-1.30 [facility] Comment on above: Order Comment: Order Date: 06/14/25 Order Info: 0786- - CMP Order Info: [id number] - LIPID Performed By: #### L 500.4050, L500.4100 #### [facility] [address] [place], [address] BUN/CRE 30.8 RATIO High 10-20 [facility] Comment on above: Order Comment: Order Date: 06/14/25 Order Info: 0786-1 - CMP Order Info: [id number] - LIPID Performed By: #### L 500.4050, L500.4100 #### [facility] [address] [place], [address] Calcium [Mass/Vol] 9.7 mg/dL Normal 7.6-11.0 [facility] Comment on above: Order Comment: Order Date: 06/14/25 Order Info: 0786-1 - CMP Order Info: [id number] - LIPID Performed By: #### L 500.4050, L500.4100 #### [facility] [address] [place], [address] Chloride [Moles/Vol] 104 mmol/L Normal 98-108 [facility] Comment on above: Order Comment: Order Date: 06/14/25 Order Info: 0786-1 - CMP Order Info: [id number] - LIPID Performed By: #### L 500.4050, L500.4100 #### [facility] [address] [place], [address] CO2 [Moles/Vol] 21.6 mmol/L Normal 21.0-32.0 [facility] Comment on above: Order Comment: Order Date: 06/14/25 Order Info: 0786- - CMP Order Info: [id number] - LIPID Performed By: #### L 500.4050, L500.4100 #### [facility] [address] [place], [address] Creatinine [Mass/Vol] 0.84 mg/dL Normal 0.70-1.20 [facility] Comment on above: Order Comment: Order Date: 06/14/25 Order Info: 0786-1 - CMP Order Info: [id number] - LIPID Performed By: #### L 500.4050, L500.4100 #### [facility] [address] [place], [address] GAP 13 Normal 5-15 [facility] Comment on above: Order Comment: Order Date: 06/14/25 Order Info: 0786-1 - CMP Order Info: [id number] - LIPID Performed By: #### L 500.4050, L500.4100 #### [facility] [address] [place], [address] GFR/1.73 sq M.predicted among non-blacks MDRD (S/P/Bld) [Vol rate/Area] 76 mL/min/{1.73_m2} Normal >60 [facility] Comment on above: Order Comment: Order Date: 06/14/25 Order Info: 0786- - CMP Order Info: [id number] - LIPID Result Comment: mL/m in/1.73m2 CKD-EPI Creatinine Equation (2020) Performed By: #### L 500.4050, L500.4100 #### [facility] [address] [place], [address] Globulin (S) [Mass/Vol] 2.8 g/dL Normal 2.2-4.2 [facility] Comment on above: Order Comment: Order Date: 06/14/25 Order Info: 0786 - CMP Order Info: [id number] - LIPID Performed By: #### L 500.4050, L500.4100 #### [facility] [address] [place], [address] Glucose [Mass/Vol] 119 mg/dL High 70-99 [facility] Comment on above: Order Comment: Order Date: 06/14/25 Order Info: 0786- - CMP Order Info: [id number] - LIPID Performed By: #### L 500.4050, L500.4100 #### [facility] [address] [place], [address] Potassium [Moles/Vol] 4.5 mmol/L Normal 3.3-5.1 [facility] Comment on above: Order Comment: Order Date: 06/14/25 Order Info: 0786- - CMP Order Info: [id number] - LIPID Performed By: #### L 500.4050, L500.4100 #### [facility] [address] [place], [address] Sodium [Moles/Vol] 138 mmol/L Normal 133-145 [facility] Comment on above: Order Comment: Order Date: 06/14/25 Order Info: 0786- - CMP Order Info: [id number] - LIPID Performed By: #### L 500.4050, L500.4100 #### [facility] [address] [place], [address] T PROT 7.0 g/dL Normal 5.9-8.4 [facility] Comment on above: Order Comment: Order Date: 06/14/25 Order Info: 0786-1 - CMP Order Info: [id number] - LIPID Performed By: #### L 500.4050, L500.4100 #### [facility] [address] [place], [address] Urea nitrogen [Mass/Vol] 26 mg/dL High 4-19 [facility] Comment on above: Order Comment: Order Date: 06/14/25 Order Info: 0786-1 - CMP Order Info: [id number] - LIPID Performed By: #### L 500.4050, L500.4100 #### [facility] [address] [place], [address] Glomerular filtration rate ( GFR) estimation/1.73 sq m using serum, plasma, or whole bOrdered By: Portillo Sanchez on 06-26-2025 GFR/1.73 sq M.predicted among non-blacks MDRD (S/P/Bld) [Vol rate/Area] 76 mL/min/{1.73_m2} >60 [facility] Comment on above: mL/min/1.73m2 CKD-EP I Creatinine Equation (2020) LDL calc ser/plasOrdered By: Portillo Sanchez on 06-26-2025 Cholesterol in LDL [Mass/Vol] 88 mg/dL [facility] Comment on above: Qosuuyzeyz=538-244 m g/dL & Higher Edut=436 mg/dL or greaterFriedwald Equation for LDL-C Laboratory - Chemistry and C hemistry - challengeOrdered By: Portillo Sanchez on 06-26-2025 AST [Catalytic activity/Vol] 20 U/L <32 [facility] Lipid Profileon 06-26-2025 CHOL:HDL 2.79 Normal [facility] Comment on above: Order Comment: Order Date: 06/14/25 Order Info: 0786-1 - CMP Order Info: [id number] - LIPID Performed By: #### L 500.4050, L500.4100 #### [facility] [address] [place], [address] Cholesterol [Mass/Vol] 158 mg/dL Normal <=200 [facility] Comment on above: Order Comment: Order Date: 06/14/25 Order Info: 0786-1 - CMP Order Info: [id number] - LIPID Result Comment: Chol esterol level, Desirable <200 mg/dL Borderline high cholesterol 200-239 mg/dL High cholesterol >=240 mg/dL Recommendations of the NCEP Adult Treatment Panel for the following risk-cutoff thresholds for the [place] population. Performed By: #### L 500.4050, L500.4100 #### [facility] [address] [place], [address] Cholesterol in HDL [Mass/Vol] 57 mg/dL Normal [facility] Comment on above: Order Comment: Order Date: 06/14/25 Order Info: 0786- - [facility] Order Info: [id number] - LIPID Result Comment: Elizabeth onal Cholesterol Education Program (NCEP) guidelines: <40 mg/dL: Low HDL-cholesterol (major risk factor for CHD) >= 60 mg/dL: High HDL-cholesterol (negative risk factor for CHD) HDL-cholesterol is affected by a number of factors, e.g. smoking, exercise, hormones, sex and age. Performed By: #### L 500.4050, L500.4100 #### [facility] [address] [place], [address] Cholesterol in LDL [Mass/Vol] 88 mg/dL Normal [facility] Comment on above: Order Comment: Order Date: 06/14/25 Order Info: 0786-1 - CMP Order Info: [id number] - LIPID Result Comment: Bord llaijt=955-272 mg/dL Higher Noqy=832 mg/dL or greater Friedwald Equation for LDL-C Performed By: #### L 500.4050, L500.4100 #### [facility] [address] [place], [address] Cholesterol in VLDL [Mass/Vol] 14 mg/dL Normal 5-40 [facility] Comment on above: Order Comment: Order Date: 06/14/25 Order Info: 0786-1 - CMP Order Info: [id number] - LIPID Performed By: #### L 500.4050, L500.4100 #### [facility] [address] [place], [address] Triglyceride [Mass/Vol] 68 mg/dL Normal [facility] Comment on above: Order Comment: Order Date: 06/14/25 Order Info: 0786-1 - CMP Order Info: [id number] - LIPID Result Comment: The drugs N-Acetylcysteine and Metamizole may falsely depress this assay. Normal range: <150 mg/dL Borderline High: 150-199 mg/dL High: 200-499 mg/dL Very High: >500 mg/dL Performed By: #### L 500.4050, L500.4100 #### [facility] [address] [place], [address] Potassium measurement (mass/ volume)Ordered By: Portillo Sanchez on 06-26-2025 Potassium (Unsp spec) [Mass/Vol] 4.5 mmol/L 3.3-5.1 [facility] Screening total cholesterol/ high density lipoprotein (HDL) cholesterol ratioOrdered By: Portillo Sanchez on 06-26-2025 Cholesterol.total/Chol esterol in HDL [Mass ratio] 2.79 {ratio} [facility] Serum creatinine measurement (mass/volume)Ordered By: Portillo Sanchez on 06-26-2025 Creatinine [Mass/Vol] 0.84 mg/dL 0.70-1.20 [facility] Serum globulin measurementOr dered By: Portillo Sanchez on 06-26-2025 Globulin (S) [Mass/Vol] 2.8 g/dL 2.2-4.2 [facility] Serum glucose measurement (m ass/volume)Ordered By: Portillo Sanchez on 06-26-2025 Glucose [Mass/Vol] 119 mg/dL High 70-99 [facility] Serum or plasma alanine sewell otransferase (ALT) measurementOrdered By: Portillo Sanchez on 06-26-2025 ALT [Catalytic activity/Vol] 16 U/L <35 [facility] Serum or plasma albumin luis urement (mass/volume)Ordered By: Portillo Sanchez on 06-26-2025 Albumin [Mass/Vol] 4.2 g/dL 3.4-4.8 [facility] Serum or plasma albumin/glob ulin mass ratioOrdered By: [facility] clarendoneliane Sanchez on 06-26-2025 Albumin/Globulin [Mass ratio] 1.5 {ratio} 0.9-2.4 [facility] Serum or plasma alkaline olaf sphatase measurementOrdered By: Portillo Sanchez on 06-26-2025 ALP [Catalytic activity/Vol] 92 U/L 35-104 [facility] Serum or plasma calcium luis urement (mass/volume)Ordered By: Portillo Sanchez on 06-26-2025 Calcium [Mass/Vol] 9.7 mg/dL 7.6-11.0 [facility] Serum or plasma cholesterol in HDL measurement (mass/volume)Ordered By: Portillo Sanchez on 06-26-2025 Cholesterol in HDL [Mass/Vol] 57 mg/dL >40 [facility] Comment on above: National Cholesterol Education Program (NCEP) guidelines:<40 mg/dL: Low HDL-cholesterol (major risk factor for CHD)>= 60 mg/dL: High HDL-cholesterol (negative risk factor for CHD)HDL-cholesterol is affected by a number of factors, e.g. smoking, exercise, hormones, sex and age. Serum or plasma cholesterol measurement (mass/volume)Ordered By: Portillo Sanchez on 06-26-2025 Cholesterol [Mass/Vol] 158 mg/dL <201 [facility] Comment on above: Cholesterol level, D esirable <200 mg/dLBorderline high cholesterol 200-239 mg/dLHigh cholesterol >=240 mg/dLRecommendations of the NCEP Adult Treatment Panel for the following risk-cutoff thresholds for the [place] population. Serum or plasma urea nitroge n measurement (mass/volume)Ordered By: Portillo Sanchez on 06-26-2025 Urea nitrogen [Mass/Vol] 26 mg/dL High 4-19 [facility] Sodium levelOrdered By: Modestoalesha cuba Daniel on 06-26-2025 Sodium [Moles/Vol] 138 mmol/L 133-145 [facility] Total proteinOrdered By: Modesto mekhi Daniel on 06-26-2025 Protein [Mass/Vol] 7.0 g/dL 5.9-8.4 [facility] Triglycerides measurementOrd ered By: Portillo Sanchez on 06-26-2025 Triglyceride [Mass/Vol] 68 mg/dL <199 [facility] Comment on above: The drugs N-Acetylcy steine and Metamizole may falsely depress this assay. Normal range: <150 mg/dLBorderline High: 150-199 mg/dLHigh: 200-499 mg/dLVery High: >500 mg/dL Vitamin D,25 Hydroxyon 06-26 Vitamin D 25-OH 76.9 ng/mL Normal 30-100 [facility] Comment on above: Order Comment: Order Date: 06/14/25 Order Info: 0786-1 - CMP Order Info: [id number] - LIPID Result Comment: Dary min D Status Deficiency: <20 ng/mL (50nmol/L) Insufficiency: 20-30 ng/mL (50-75 nmol/L) Sufficiency: 30-100 ng/mL (75-250 nmol/L) Toxicity: >100 ng/mL (>250 nmol/L) Performed By: #### L 506.1001 #### [facility] [address] [place], [address] Vitamin D 1,25-Dihydroxyon 0 12-15-2024 VIT D 1,25 DIHY 67.8 pg/mL Normal 24.8-81.5 [facility] Comment on above: Order Comment: Order Date: 11/28/24 Order Info: [id number] - [id number] Result Comment: Perf ormed at: - [facility] [id number] [employer] Architect: Veronica Ansari MD, Phone: [phone] Performed By: #### L 3300.0960 #### [facility] [address] [place], [place], [address] Basic Metabolic Profile (BMP )on 12-12-2024 BUN/CRE 22.9 RATIO High 10-20 [facility] Comment on above: Order Comment: Order Date: 11/28/24 Order Info: [id number] - BMP Performed By: #### L 500.2500 #### [facility] [address] [place], [address] [phone] CA,Total 9.3 mg/dL Normal 8.5-10.1 [facility] Comment on above: Order Comment: Order Date: 11/28/24 Order Info: 0667- - BMP Performed By: #### L 500.2500 #### [facility] [address] [place], [phone] Chloride [Moles/Vol] 110 mmol/L High 98-107 [facility] Comment on above: Order Comment: Order Date: 11/28/24 Order Info: [id number] - BMP Performed By: #### L 500.2500 #### [facility] [address] [place], [address] ([address] CO2 [Moles/Vol] 24.0 mmol/L Normal 21.0-32.0 [facility] Comment on above: Order Comment: Order Date: 11/28/24 Order Info: 0667- - BMP Performed By: #### L 500.2500 #### [facility] [address] [place], [address] Creatinine [Mass/Vol] 0.74 mg/dL Normal 0.55-1.02 [facility] Comment on above: Order Comment: Order Date: 11/28/24 Order Info: 0667- - BMP Result Comment: The validity of the calculated GFR GFRAA in patients over 70 years has not been determined. Clinical correlation is essential. Performed By: #### L 500.2500 #### [facility] [address] [place], [address] [phone] EST GFR - AA 101 mL/min Normal >60 [facility] Comment on above: Order Comment: Order Date: 11/28/24 Order Info: 0667-1 - BMP Result Comment: Afri can [place] GFR Calc Performed By: #### L 500.2500 #### [facility] [address] [place], [address] GAP 6 Normal 5-15 [facility] Comment on above: Order Comment: Order Date: 11/28/24 Order Info: 0667-1 - BMP Performed By: #### L 500.2500 #### [facility] [address] [place], [address] GFR/1.73 sq M.predicted among non-blacks MDRD (S/P/Bld) [Vol rate/Area] 83 mL/min/{1.73_m2} Normal >60 [facility] Comment on above: Order Comment: Order Date: 11/28/24 Order Info: 0667-1 - BMP Result Comment: Non- GFR Calc Performed By: #### L 500.2500 #### [facility] [address] [place], [address] Glucose [Mass/Vol] 98 mg/dL Normal 74-106 [facility] Comment on above: Order Comment: Order Date: 11/28/24 Order Info: 0667-1 - BMP Performed By: #### L 500.2500 #### [facility] [address] [place], [address] Potassium [Moles/Vol] 4.1 mmol/L Normal 3.5-5.1 [facility] Comment on above: Order Comment: Order Date: 11/28/24 Order Info: 0667-1 - BMP Performed By: #### L 500.2500 #### [facility] [address] [place], [address] Sodium [Moles/Vol] 141 mmol/L Normal 136-145 [facility] Comment on above: Order Comment: Order Date: 11/28/24 Order Info: 0667-1 - BMP Performed By: #### L 500.2500 #### [facility] [address] [place], [address] Urea nitrogen [Mass/Vol] 17 mg/dL Normal 7-18 [facility] Comment on above: Order Comment: Order Date: 11/28/24 Order Info: 0667-1 - BMP Performed By: #### L 500.2500 #### [facility] [address] [place], [address] Lipid Profileon 12-12-2024 Cholesterol [Mass/Vol] 170 mg/dL Normal 200 [facility] Comment on above: Order Comment: Order Date: 11/28/24 Order Info: [id number] - LIPID Result Comment: <200 mg/dL Desirable 200-240 mg/dL Borderline >240 mg/dL High Risk Performed By: #### L 500.4100 #### [facility] [address] [place], [address] Cholesterol in HDL [Mass/Vol] 55 mg/dL Normal [facility] Comment on above: Order Comment: Order Date: 11/28/24 Order Info: [id number] - LIPID Result Comment: The drugs N-Acetylcysteine and Metamizole may falsely depress this assay. Reference Range HDL <40 mg/dL Low HDL Cholesterol HDL >or= 60 mg/dL High HDL Cholesterol Performed By: #### L 500.4100 #### [facility] [address] [place], [address] Cholesterol in LDL [Mass/Vol] 90 mg/dL Normal 0-130 [facility] Comment on above: Order Comment: Order Date: 11/28/24 Order Info: [id number] - LIPID Performed By: #### L 500.4100 #### [facility] [address] [place], [address] Cholesterol in VLDL [Mass/Vol] 25 mg/dL Normal 5-40 [facility] Comment on above: Order Comment: Order Date: 11/28/24 Order Info: [id number] - LIPID Performed By: #### L 500.4100 #### [facility] [address] [place], [address] Triglyceride [Mass/Vol] 124 mg/dL Normal [facility] Comment on above: Order Comment: Order Date: 11/28/24 Order Info: [id number] - LIPID Result Comment: The drugs N-Acetylcysteine and Metamizole may falsely depress this assay. Serum Triglycerides Reference Interval Normal <150 mg/dL Borderline high 150 - 199 mg/dL High 200 - 499 mg/dL Very High > or = 500 mg/dL Performed By: #### L 500.4100 #### [facility] [address] [place], [address] Basophil percentageOrdered B y: Shmair Sanchez on 12-07-2023 Bilirubin [Mass/Vol] 0.50 mg/dL 0.20-1.00 [facility] Comment on above: For patients on eltr ombopag therapy, use of Dimension [place] TBIL is not recommended. Chloride [Moles/Vol] 107 mmol/L 98-107 [facility] Cholesterol [Mass/Vol] 176 mg/dL <200 [facility] Comment on above: <200 mg/dL Desirable 200-240 mg/dL Borderline >240 mg/dL High Risk Glucose [Mass/Vol] 117 mg/dL 74-106 [facility] Comment on above: Fasting Glucose resu lt from 100 to 125 mg/dL suggests IMPAIRED HOMEOSTASIS per A.D.A. criteria. Potassium [Moles/Vol] 3.9 mmol/L 3.5-5.1 [facility] Comment on above: Slight Hemolysis, Re sult may be falsely increased. Protein [Mass/Vol] 7.6 g/dL 6.4-8.2 [facility] Sodium [Moles/Vol] 140 mmol/L 136-145 [facility] Triglyceride [Mass/Vol] 177 mg/dL <199 [facility] Comment on above: The drugs N-Acetylcy steine and Metamizole may falsely depress this assay.Serum Triglycerides Reference Interval Normal <150 mg/dL Borderline high 150 - 199 mg/dL High 200 - 499 mg/dL Very High > or = 500 mg/dL High density lipoprotein (HD L) measurementOrdered By: Shamir Sanchez on 12-07-2023 Cholesterol in HDL (Body fld) [Mass/Vol] 56 mg/dL >40 [facility] Comment on above: The drugs N-Acetylcy steine and Metamizole may falsely depress this assay. Reference Range HDL <40 mg/dL Low HDL Cholesterol HDL >or= 60 mg/dL High HDL Cholesterol Laboratory - Chemistry and C hemistry - challengeOrdered By: Shamir Sanchez on 12-07-2023 Albumin/Globulin [Mass ratio] 1.0 {ratio} 0.9-2.4 [facility] ALP [Catalytic activity/Vol] 93 U/L 45-117 [facility] ALT [Catalytic activity/Vol] 21 U/L 13-56 [facility] CO2 [Moles/Vol] 28.0 mmol/L 21.0-32.0 [facility] Globulin (S) [Mass/Vol] 3.8 g/dL 2.2-4.2 [facility] Urea nitrogen/Creatinine [Mass ratio] 21.9 mg/mg 10-20 [facility] Low density lipoprotein (LDL ) cholesterol measurementOrdered By: Shamir Sanchez on 12-07-2023 Cholesterol in LDL (Body fld) [Moles/Vol] 85 mg/dL 0-130 [facility] No Panel InformationOrdered By: Shamir Sanchez on 12-07-2023 Estimated GFR (MDRD) Amer 90 mL/min >60 [facility] Comment on above: GFR Calc Estimated GFR (MDRD) Non-Af Amer 74 mL/min >60 [facility] Comment on above: Non- GFR Calc Vitamin D 25-Hydroxy 80.9 ng/mL [facility] Comment on above: Vitamin D 25(OH) Sta tus Range Deficiency <20 ng/mL (50nmol/L) Insufficiency 20 - 30 ng/mL (50 - 75 nmol/L) Sufficiency 30 - 100 ng/mL (75 - 250 nmol/L) Toxicity >100 ng/mL (>250 nmol/L) Serum or plasma calcium luis urement (mass/volume)Ordered By: Shamir Sanchez on 12-07-2023 Calcium [Mass/Vol] 9.7 mg/dL 8.5-10.1 [facility] Serum or plasma creatinine m easurement (mass/volume)Ordered By: Shamir Sanchez on 12-07-2023 Creatinine [Mass/Vol] 0.82 mg/dL 0.55-1.02 [facility] Comment on above: The validity of the calculated GFR & GFRAA in patients over 70 years has not been determined. Clinical correlation is essential. Serum or plasma urea nitroge n measurement (mass/volume)Ordered By: Shamir Sanhcez on 12-07-2023 Urea nitrogen [Mass/Vol] 18 mg/dL 7-18 [facility] Thin prep Papanicolaou smear with manual screeningOrdered By: Shamir Sanchez on 12-07-2023 Thin prep Papanicolaou smear with manual screening 3.8 g/dL 3.2-5.0 [facility] Thin prep Papanicolaou smear with manual screening 19 U/L 15-37 [facility] Comment on above: Slight Hemolysis, Re sult may be falsely increased. Thin prep Papanicolaou smear with manual screening 5 5-15 [facility] Very low density lipoprotein (VLDL) cholesterol measurementOrdered By: Shamir Sanchez on 12-07-2023 Cholesterol in VLDL Calc [Moles/Vol] 35 mg/dL 5-40 [facility] Basophil percentageOrdered B y: Shamir Sanchez on 06-13-2023 Chloride [Moles/Vol] 107 mmol/L 98-107 [facility] Cholesterol [Mass/Vol] 160 mg/dL <200 [facility] Comment on above: <200 mg/dL Desirable 200-240 mg/dL Borderline >240 mg/dL High Risk Glucose [Mass/Vol] 109 mg/dL 74-106 [facility] Comment on above: Fasting Glucose resu lt from 100 to 125 mg/dL suggests IMPAIRED HOMEOSTASIS per A.D.A. criteria. Potassium [Moles/Vol] 3.7 mmol/L 3.5-5.1 [facility] Sodium [Moles/Vol] 140 mmol/L 136-145 [facility] Triglyceride [Mass/Vol] 172 mg/dL <199 [facility] Comment on above: The drugs N-Acetylcy steine and Metamizole may falsely depress this assay.Serum Triglycerides Reference Interval Normal <150 mg/dL Borderline high 150 - 199 mg/dL High 200 - 499 mg/dL Very High > or = 500 mg/dL Laboratory - Chemistry and C hemistry - challengeOrdered By: Shamir Sanchez on 06-13-2023 CO2 [Moles/Vol] 26.0 mmol/L 21.0-32.0 [facility] Urea nitrogen/Creatinine [Mass ratio] 13.8 mg/mg 10-20 [facility] No Panel InformationOrdered By: Shamir Sanchez on 06-13-2023 Estimated GFR (MDRD) Amer 84 mL/min >60 [facility] Comment on above: GFR Calc Estimated GFR (MDRD) Non-Af Amer 70 mL/min >60 [facility] Comment on above: Non- GFR Calc Serum or plasma calcitriol m easurement (mass/volume)Ordered By: Shamir Sanchez on 06-13-2023 1,25-dihydroxyvitamin D3 [Mass/Vol] 53.5 pg/mL 24.8-81.5 [facility] Comment on above: Performed at: [facility] - [address] [id number] Director: Veronica Ansari MD, Phone: [phone] Serum or plasma calcium luis urement (mass/volume)Ordered By: Shamir Sanchez on 06-13-2023 Calcium [Mass/Vol] 9.1 mg/dL 8.5-10.1 [facility] Serum or plasma cholesterol in HDL measurement (mass/volume)Ordered By: Shamir Sanchez on 06-13-2023 Cholesterol in HDL [Mass/Vol] 53 mg/dL >40 [facility] Comment on above: The drugs N-Acetylcy steine and Metamizole may falsely depress this assay. Reference Range HDL <40 mg/dL Low HDL Cholesterol HDL >or= 60 mg/dL High HDL Cholesterol Serum or plasma cholesterol in VLDL measurement (mass/volume)Ordered By: Shamir Sanchez on 06-13-2023 Cholesterol in VLDL [Mass/Vol] 34 mg/dL 5-40 [facility] Serum or plasma creatinine m easurement (mass/volume)Ordered By: Shamir Sanchez on 06-13-2023 Creatinine [Mass/Vol] 0.87 mg/dL 0.55-1.02 [facility] Comment on above: The validity of the calculated GFR & GFRAA in patients over 70 years has not been determined. Clinical correlation is essential. Serum or plasma low density lipoprotein (LDL) cholesterol measurement (mass/volume)Ordered By: Shamir Sanchez on 06-13-2023 Cholesterol in LDL [Mass/Vol] 73 mg/dL 0-130 [facility] Serum or plasma urea nitroge n measurement (mass/volume)Ordered By: Shamir Sanchez on 06-13-2023 Urea nitrogen [Mass/Vol] 12 mg/dL 7-18 [facility] Thin prep Papanicolaou smear with manual screeningOrdered By: Shamir Sanchez on 06-13-2023 Thin prep Papanicolaou smear with manual screening 7 5-15 [facility] Established Visit (Otolaryng ology)on 01-26-2023 Established Visit (Otolaryngology) Provider Impressions 61 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 Pena for [...] Atorvastatin Calcium 20 MG Oral Tablet Biotin 99569 MCG Oral Tablet Estradiol 0.1 MG/GM Vaginal Cream Lansoprazole 15 MG Oral Capsule Delayed Release Lisinopril 5 MG Oral Tablet Ocuvite TABS Polyethylene Glycol 3350 17 GM/SCOOP Oral PowderMIX 17 GM IN LIQUID AND DRINK ONCE DAILY Khpmfzpyo-Eqovjlwt-YI 30-2-10 MG/5ML Oral Syrup TruBiotics Oral Capsule [...] Jan 26 2023 8:19AM EST (Author) Normal [employer] Tobacco Screening.on 023 Adult depression screening assessment No MG-Otolaryn go [facility] Work Phone: Fall risk assessment a) No falls within the last year -Otolaryngo [facility] Work Phone: Tobacco use status CPHS b) No -Otolaryngo [facility] Work Phone: Absolute lymphocyte countOrd ered By: Dr. Sanchez on 12-13-2022 Lymphocytes Auto (Unsp spec) [#/Vol] 2.55 10*3/uL 0.83-4.51 [facility] Basophil percentageOrdered B y: Dr. Sanchez on 12-13-2022 Basophils/100 WBC (Bld) 0.8 % 0-1 [facility] Bilirubin [Mass/Vol] 0.50 mg/dL 0.20-1.00 [facility] Comment on above: For patients on eltr ombopag therapy, use of Dimension [place] TBIL is not recommended. Chloride [Moles/Vol] 108 mmol/L 98-107 [facility] Cholesterol [Mass/Vol] 164 mg/dL <200 [facility] Comment on above: <200 mg/dL Desirable 200-240 mg/dL Borderline >240 mg/dL High Risk Eosinophils/100 WBC (Bld) 3.8 % 0-5 [facility] Glucose [Mass/Vol] 108 mg/dL 74-106 [facility] Comment on above: Fasting Glucose resu lt from 100 to 125 mg/dL suggests IMPAIRED HOMEOSTASIS per A.D.A. criteria. Neutrophils (Bld) [#/Vol] 4.3 10*3/uL 2.0-7.7 [facility] Neutrophils/100 WBC (Bld) 54.4 % 47-70 [facility] Potassium [Moles/Vol] 4.1 mmol/L 3.5-5.1 [facility] Protein [Mass/Vol] 7.2 g/dL 6.4-8.2 [facility] Sodium [Moles/Vol] 142 mmol/L 136-145 [facility] Triglyceride [Mass/Vol] 96 mg/dL <199 [facility] Comment on above: The drugs N-Acetylcy steine and Metamizole may falsely depress this assay.Serum Triglycerides Reference Interval Normal <150 mg/dL Borderline high 150 - 199 mg/dL High 200 - 499 mg/dL Very High > or = 500 mg/dL WBC (Bld) [#/Vol] 7.9 10*3/uL 4.4-11.0 [facility] Blood erythrocytes count (nu mber/volume)Ordered By: Dr. Sanchez on 12-13-2022 RBC (Bld) [#/Vol] 4.54 10*6/uL 4.2-5.4 [facility] Blood hemoglobin measurement (mass/volume)Ordered By: Dr. Sanchez on 12-13-2022 Hemoglobin (Bld) [Mass/Vol] 13.8 g/dL 12.0-15.0 [facility] Blood lymphocytes/100 leukoc ytesOrdered By: Dr. Sanchez on 12-13-2022 Lymphocytes/100 WBC (Bld) 32.3 % 19-41 [facility] Blood monocytes/100 leukocyt esOrdered By: Dr. Sanchez on 12-13-2022 Monocytes/100 WBC (Bld) 8.4 % 0-10 [facility] Blood platelet mean volumeOr dered By: Dr. Sanchez on 12-13-2022 Platelet mean volume (Bld) [Entitic vol] 10.2 fL 6.2-12.0 [facility] Determination of erythrocyte mean corpuscular volume (MCV)Ordered By: Dr. Sanchez on 12-13-2022 MCV (RBC) [Entitic vol] 94.9 fL 81-99 [facility] Hematocrit Auto (Bld) [Volum e fraction]Ordered By: Dr. Sanchez on 12-13-2022 Hematocrit (Bld) [Volume fraction] 43.1 % 37-47 [facility] Laboratory - Chemistry and C hemistry - challengeOrdered By: Dr. Sanchez on 12-13-2022 ALP [Catalytic activity/Vol] 85 U/L 45-117 [facility] ALT [Catalytic activity/Vol] 22 U/L 13-56 [facility] CO2 [Moles/Vol] 27.0 mmol/L 21.0-32.0 [facility] Globulin (S) [Mass/Vol] 3.5 g/dL 2.2-4.2 [facility] Urea nitrogen/Creatinine [Mass ratio] 28.4 mg/mg 10-20 [facility] Laboratory - Hematology and Cell countsOrdered By: Dr. Sanchez on 12-13-2022 Erythrocyte distribution width (RBC) [Entitic vol] 44.4 fL 35.1-43.9 [facility] Erythrocyte distribution width (RBC) [Ratio] 12.7 % 11.6-14.6 [facility] Immature granulocytes/100 WBC (Bld) 0.300 % 0.0-0.9 [facility] Comment on above: IG% - Immature Granu locytes (promyelocytes, myelocytes and metamyelocytes) > 1% indicates that a LEFT SHIFT is Present. MCH (RBC) [Entitic mass] 30.4 pg 27.0-32.0 [facility] Nucleated RBC/100 WBC (Bld) [Ratio] 0 % 0-5 [facility] MCHC Auto (RBC) [Mass/Vol]Or dered By: Dr. Sanchez on 12-13-2022 MCHC (RBC) [Mass/Vol] 32.0 g/dL 32-36 [facility] No Panel InformationOrdered By: Dr. Sanchez on 12-13-2022 Estimated GFR (MDRD) Amer 96 mL/min >60 [facility] Comment on above: GFR Calc Estimated GFR (MDRD) Non-Af Amer 79 mL/min >60 [facility] Comment on above: Non- GFR Calc Vitamin D 25-Hydroxy 82.7 ng/mL [facility] Comment on above: Vitamin D 25(OH) Sta tus Range Deficiency <20 ng/mL (50nmol/L) Insufficiency 20 - 30 ng/mL (50 - 75 nmol/L) Sufficiency 30 - 100 ng/mL (75 - 250 nmol/L) Toxicity >100 ng/mL (>250 nmol/L) Platelets bldOrdered By: Dr. Sanchez on 12-13-2022 Platelets (Bld) [#/Vol] 336 10*3/uL 150-450 [facility] Serum or plasma albumin luis urement (mass/volume)Ordered By: Dr. Sanchez on 12-13-2022 Albumin [Mass/Vol] 3.7 g/dL 3.2-5.0 [facility] Serum or plasma albumin/glob ulin mass ratioOrdered By: Dr. Sanchez on 12-13-2022 Albumin/Globulin [Mass ratio] 1.1 {ratio} 0.9-2.4 [facility] Serum or plasma calcium luis urement (mass/volume)Ordered By: Dr. Sanchez on 12-13-2022 Calcium [Mass/Vol] 9.0 mg/dL 8.5-10.1 [facility] Serum or plasma cholesterol in HDL measurement (mass/volume)Ordered By: Dr. Sanchez on 12-13-2022 Cholesterol in HDL [Mass/Vol] 55 mg/dL >40 [facility] Comment on above: The drugs N-Acetylcy steine and Metamizole may falsely depress this assay. Reference Range HDL <40 mg/dL Low HDL Cholesterol HDL >or= 60 mg/dL High HDL Cholesterol Serum or plasma cholesterol in VLDL measurement (mass/volume)Ordered By: Dr. Sanchez on 12-13-2022 Cholesterol in VLDL [Mass/Vol] 19 mg/dL 5-40 [facility] Serum or plasma creatinine m easurement (mass/volume)Ordered By: Dr. Sanchez on 12-13-2022 Creatinine [Mass/Vol] 0.78 mg/dL 0.55-1.02 [facility] Comment on above: The validity of the calculated GFR & GFRAA in patients over 70 years has not been determined. Clinical correlation is essential. Serum or plasma low density lipoprotein (LDL) cholesterol measurement (mass/volume)Ordered By: Dr. Sanchez on 12-13-2022 Cholesterol in LDL [Mass/Vol] 90 mg/dL 0-130 [facility] Serum or plasma urea nitroge n measurement (mass/volume)Ordered By: Dr. Sanchez on 12-13-2022 Urea nitrogen [Mass/Vol] 22 mg/dL 7-18 [facility] Thin prep Papanicolaou smear with manual screeningOrdered By: Dr. Sanchez on 12-13-2022 Thin prep Papanicolaou smear with manual screening 14 U/L 15-37 [facility] Thin prep Papanicolaou smear with manual screening 7 5-15 [facility] Established Visit (Otolaryng ology)on 06-23-2022 Established Visit (Otolaryngology) Provider Impressions 61 yo woman with oropharyngeal papillomas, recent biopsy; asymptomatic path : mild - mod dysplasia with papilloma -doing well after excision of papilloma -follow up in 6 months Chief Complaint post-op History of Present O[age]womoi67 yo woman referred by Dr. Pena for [...] Atorvastatin Calcium 20 MG Oral Tablet Biotin 95269 MCG Oral Tablet Estradiol 0.1 MG/GM Vaginal Cream Lansoprazole 15 MG Oral Capsule Delayed Release Lisinopril 5 MG Oral Tablet Ocuvite TABS Polyethylene Glycol 3350 17 GM/SCOOP Oral PowderMIX 17 GM IN LIQUID AND DRINK ONCE DAILY Ufnrtbkag-Mgkilrgb-TQ 30-2-10 MG/5ML Oral Syrup TruBiotics Oral Capsule Tylenol Extra Strength 500 MG Oral Tablet Venlafaxine HCl ER 75 MG Oral Capsule Extended Release 24 Hour Vitamin B12 TABS Vitamin D3 TABS Vitals Vital Signs Recorded: 23Jun2022 02:51PM Cekyjfkepmb21.6 F Height5 ft 4 in Plmguj172 lb 3.2 oz BMI Pjgrwtmkcz29.67 kg/m2 BSA Calculated1.78 Tobacco Useb) No PHQ-2 [...] Jun 23 2022 9:41PM EST (Author) Normal [employer] Tobacco Screening.on Adult depression screening assessment Yes [facility] [employer] Work Phone: Fall risk assessment a) No falls within the last year [facility] [employer] Work Phone: Tobacco use status CPHS b) No [facility] [employer] Work Phone: Cervical or vagninal specime n microscopic examination by cytology stain (reported ason 06-16-2022 Cytology report Cyto stain Doc (Cvx/Vag) Comment . [facility] Work Phone: Comment on above: The Pap [...] DNA Probe+sig amp Ql (Cvx) Negative Negative [facility] Work Phone: Comment on above: This nucleic acid am plification test detects fourteen high- risk HPV types (16,18,31,33,35,39,45,51,52,56,58,59,66,68)without differentiation.Performed at: - [facility] [id number] Director: Debby Harrington MD, Phone: [phone] at: =[facility] [id number] Director: Debby Harrington MD, Phone: [phone] Laboratory - Cytologyon Chief Accounting Officer Cyto stain Nom (Cvx/Vag) [ID] Comment . [facility] Work Phone: Comment on above: Holly Boone, Cytot echnologist (ASCP) Laboratory - Miscellaneous t estson 06-16-2022 Service comment (Unsp spec) [Interp] Comment . [facility] Work Phone: Comment on above: This liquid based Th inPrep(R) pap test was screened withthe use of an image guided system. Service comment (Unsp spec) [Interp] . . [facility] Work Phone: No Panel Informationon 06-16 Pathology report final diagnosis Narrative Comment . [facility] Work Phone: Comment on above: NEGATIVE FOR INTRAEP ITHELIAL LESION OR MALIGNANCY.CELLULAR CHANGES ASSOCIATED WITH ATROPHY ARE PRESENT. Absolute lymphocyte counton 06-11-2022 Lymphocytes Auto (Unsp spec) [#/Vol] 2.42 10*3/uL 0.83-4.51 [facility] Work Phone: Basophil percentageon 2021 Basophils/100 WBC (Bld) 0.9 % 0-1 [facility] Work Phone: Bilirubin [Mass/Vol] 0.60 mg/dL 0.20-1.00 [facility] Work Phone: Comment on above: For patients on eltr ombopag therapy, use of Dimension [place] TBIL is not recommended. Chloride [Moles/Vol] 108 mmol/L 98-107 [facility] Work Phone: Cholesterol [Mass/Vol] 141 mg/dL <200 [facility] Work Phone: Comment on above: <200 mg/dL Desirable 200-240 mg/dL Borderline >240 mg/dL High Risk Eosinophils/100 WBC (Bld) 4.0 % 0-5 [facility] Work Phone: Glucose [Mass/Vol] 116 mg/dL 74-106 [facility] Work Phone: Comment on above: Fasting Glucose resu lt from 100 to 125 mg/dL suggests IMPAIRED HOMEOSTASIS per A.D.A. criteria. Neutrophils (Bld) [#/Vol] 3.5 10*3/uL 2.0-7.7 [facility] Work Phone: Neutrophils/100 WBC (Bld) 50.6 % 47-70 [facility] Work Phone: Potassium [Moles/Vol] 4.0 mmol/L 3.5-5.1 [facility] Work Phone: Protein [Mass/Vol] 7.0 g/dL 6.4-8.2 [facility] Work Phone: Sodium [Moles/Vol] 140 mmol/L 136-145 [facility] Work Phone: Triglyceride [Mass/Vol] 87 mg/dL <199 [facility] Work Phone: Comment on above: The drugs N-Acetylcy steine and Metamizole may falsely depress this assay.Serum Triglycerides Reference Interval Normal <150 mg/dL Borderline high 150 - 199 mg/dL High 200 - 499 mg/dL Very High > or = 500 mg/dL WBC (Bld) [#/Vol] 6.9 10*3/uL 4.4-11.0 [facility] Work Phone: Blood erythrocytes count (nu mber/volume)on 06-11-2022 RBC (Bld) [#/Vol] 4.37 10*6/uL 4.2-5.4 [facility] Work Phone: Blood hemoglobin measurement (mass/volume)on 06-11-2022 Hemoglobin (Bld) [Mass/Vol] 13.3 g/dL 12.0-15.0 [facility] Work Phone: Blood lymphocytes/100 leukoc yteson 06-11-2022 Lymphocytes/100 WBC (Bld) 35.0 % 19-41 [facility] Work Phone: Blood monocytes/100 leukocyt eson 06-11-2022 Monocytes/100 WBC (Bld) 9.2 % 0-10 [facility] Work Phone: Blood platelet mean volumeon 06-11-2022 Platelet mean volume (Bld) [Entitic vol] 9.8 fL 6.2-12.0 [facility] Work Phone: Determination of erythrocyte mean corpuscular volume (MCV)on 06-11-2022 MCV (RBC) [Entitic vol] 93.4 fL 81-99 [facility] Work Phone: Hematocrit Auto (Bld) [Volum e fraction]on 06-11-2022 Hematocrit (Bld) [Volume fraction] 40.8 % 37-47 [facility] Work Phone: Laboratory - Chemistry and C hemistry - challengeon 06-11-2022 ALP [Catalytic activity/Vol] 84 U/L 45-117 [facility] Work Phone: ALT [Catalytic activity/Vol] 21 U/L 13-56 [facility] Work Phone: CO2 [Moles/Vol] 26.0 mmol/L 21.0-32.0 [facility] Work Phone: Globulin (S) [Mass/Vol] 3.4 g/dL 2.2-4.2 [facility] Work Phone: Urea nitrogen/Creatinine [Mass ratio] 26.9 mg/mg 10-20 [facility] Work Phone: Laboratory - Hematology and Cell countson 06-11-2022 Erythrocyte distribution width (RBC) [Entitic vol] 41.7 fL 35.1-43.9 [facility] Work Phone: Erythrocyte distribution width (RBC) [Ratio] 12.1 % 11.6-14.6 [facility] Work Phone: Immature granulocytes/100 WBC (Bld) 0.300 % 0.0-0.9 [facility] Work Phone: Comment on above: IG% - Immature Granu locytes (promyelocytes, myelocytes and metamyelocytes) > 1% indicates that a LEFT SHIFT is Present. MCH (RBC) [Entitic mass] 30.4 pg 27.0-32.0 [facility] Work Phone: Nucleated RBC/100 WBC (Bld) [Ratio] 0 % 0-5 [facility] Work Phone: MCHC Auto (RBC) [Mass/Vol]on 06-11-2022 MCHC (RBC) [Mass/Vol] 32.6 g/dL 32-36 [facility] Work Phone: No Panel Informationon 06-11 Estimated GFR (MDRD) Amer 101 mL/min >60 [facility] Work Phone: Comment on above: GFR Calc Estimated GFR (MDRD) Non-Af Amer 84 mL/min >60 [facility] Work Phone: Comment on above: Non- GFR Calc Vitamin D 25-Hydroxy 100.2 ng/mL [facility] Work Phone: Platelets bldon 06-11-2022 Platelets (Bld) [#/Vol] 333 10*3/uL 150-450 [facility] Work Phone: Serum or plasma albumin luis urement (mass/volume)on 06-11-2022 Albumin [Mass/Vol] 3.6 g/dL 3.2-5.0 [facility] Work Phone: Serum or plasma albumin/glob ulin mass ratioon 06-11-2022 Albumin/Globulin [Mass ratio] 1.1 {ratio} 0.9-2.4 [facility] Work Phone: Serum or plasma calcium luis urement (mass/volume)on 06-11-2022 Calcium [Mass/Vol] 8.8 mg/dL 8.5-10.1 [facility] Work Phone: Serum or plasma cholesterol in HDL measurement (mass/volume)on 06-11-2022 Cholesterol in HDL [Mass/Vol] 48 mg/dL >40 [facility] Work Phone: Comment on above: The drugs N-Acetylcy steine and Metamizole may falsely depress this assay. Reference Range HDL <40 mg/dL Low HDL Cholesterol HDL >or= 60 mg/dL High HDL Cholesterol Serum or plasma cholesterol in VLDL measurement (mass/volume)on 06-11-2022 Cholesterol in VLDL [Mass/Vol] 17 mg/dL 5-40 [facility] Work Phone: Serum or plasma creatinine m easurement (mass/volume)on 06-11-2022 Creatinine [Mass/Vol] 0.74 mg/dL 0.55-1.02 [facility] Work Phone: Comment on above: The validity of the calculated GFR & GFRAA in patients over 70 years has not been determined. Clinical correlation is essential. Serum or plasma low density lipoprotein (LDL) cholesterol measurement (mass/volume)on 06-11-2022 Cholesterol in LDL [Mass/Vol] 76 mg/dL 0-130 [facility] Work Phone: Serum or plasma urea nitroge n measurement (mass/volume)on 06-11-2022 Urea nitrogen [Mass/Vol] 20 mg/dL 7-18 [facility] Work Phone: Thin prep Papanicolaou smear with manual screeningon 06-11-2022 Thin prep Papanicolaou smear with manual screening 15 U/L 15-37 [facility] Work Phone: Thin prep Papanicolaou smear with manual screening 6 5-15 [facility] Work Phone: No Panel Informationon 06-02 [facility] Work Phone: Order Reconciliationon 06-02 Order Reconciliation Page 1 Discharge Reconciliation Document Reconciliation Type: Discharge requested on behalf of Geoff Moise (Resident) done by Geoff Moise (Resident)) Discharge - Reconciliation: 02-Jun-2022 07:36 by: Geoff Moise (Resident)) Home Medications EnteredHOME MEDICATIONS AT DISCHARGE [...] After you (more content not included)... Normal [facility] Surgical Pathology Depar tmenton 06-02-2022 [facility] Surgical Pathology Department Name LETITIA MALONE Pathologist: EVE TOBIAS DMD. 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 NOTE: The lesion extends to inked and cauterized specimen edges multifocally (superior, inferior, medial, and lateral). The lesion shows both glanduar and squamous components. Appropriately contorolled p16 immunostain is negative. By ANUSHKA performed at the [facility], low risk HPV (types 6 or [...] at Electronically Signed Out By EVE TOBIAS DMD./ADEN By the signature on this report, the individual or group listed as making the Final Interpretation/Diagno sis certifies that they have reviewed this case. Diagnostic interpretation performed at [facility] [address] [facility] [address] Addendum/Procedures: Outside Ancillary Testing Date Ordered: 06/19/2022 Status: Signed Out Date Complete: 06/19/2022 Date Reported: 06/23/2022 Addendum Diagnosis A complete HPV High-Risk ONLY DNA ANUSHKA result issued by [facility] is on file in the Department of Anatomic Pathology at [facility]. Interpretation Right tonsil, specimen for Human Papilloma Virus (HPV) In Situ Hybridization (ANUSHKA) studies performed on paraffin-embedded tissue sections ([id number]): HPV (family 16) DNA ANUSHKA is negative for types 16, 18, 31, 33, and 51. Also A complete HPV Low-Risk ANUSHKA result issued by [facility] is on file in the Department of Anatomic Pathology at [facility]. Interpretation Right tonsil, paraffin-embedded tissue specimen for Human Papilloma Virus (HPV) In Situ Hybridization (ANUSHKA) studies ([id number]): HPV (family 6) ANUSHKA is positive. This indicates positivity for one or more of the following types: 6 or 11. Electronically Signed Out By EVE TOBIAS DMD./ADEN By the signature on this report, the individual or group listed as making the Final Interpretation/Diagno sis certifies that they have reviewed this case. Addendum signed out at [facility] [address] [place] [address]. Outside Reference Lab Report [IMAGE:attachments: c41:1] Clinical History: Benign neoplasm of mouth and pharynx Specimens Submitted As: A: RIGHT REVISION TONSILLECTOMY, LONG STITCH SUPERIOR, SHORT STITCH LATERAL Gross Description: Received in formalin, labeled with the patient's name and hospital number and A right revision tonsillectomy-long stitch superior, short stitch-lateral", consists of an oriented negative and cerrato, [...] positive and negative controls which stained appropriately. [facility] Department of Pathology [address] [place] [address] Normal [facility] Comment on above: Performed By: #### U [facility] #### [facility] Surgical Pathology Department [address] [place] [address] Laboratory - Microbiology an d Antimicrobial susceptibilityon 05-30-2022 SARS-CoV-2 (COVID-19) RNA NILE+probe Ql (Unsp spec) Not detected Not Detect [facility] Work Phone: Comment on above: Normal Reference [...] Q-T Interval 406 QTC Calculation(Bazett) 471 P [place] 36 R [place] 33 T [place] 27 QRS Count 14 Q Onset 220 P Onset 134 P Offset 160 T Offset 423 QTC Fredericia 448 Diagnosis Class Borderline Abnormal Diagnosis Sinus rhythm with marked sinus arrhythmia Otherwise normal ECG No previous ECGs available Confirmed by David Keys ([id number]) on 06/01/2022 7:34:43 AM Normal [facility] No Panel Informationon 05-27 [email or web address]?PatientI U=[id number]&Date=&Time=14%3a46%3 a00%3a00&TestType=ECG &Site=10&OutputType=P DF&Ext=PDF [facility] Work Phone: [phone] Sinus rhythm with marked sinus arrhythmia [facility] Work Phone: [phone] Borderline Abnormal [facility] ol[facility] Work Phone: [phone] 1 [facility] Work Phone: [phone] 1 [facility] Work Phone: [phone] 1 [facility] Work Phone: [phone] 1 [facility] Work Phone: [phone] 1 [facility] Work Phone: [phone] 14 1 [facility] Work Phone: [phone] 1 [facility] Work Phone: [phone] 1 [facility] Work Phone: [phone] 1 [facility] Work Phone: [phone] 1 [facility] Work Phone: [phone] 1 [facility] Work Phone: [phone] 1 [facility] Work Phone: [phone] 1 [facility] Work Phone: [phone] 1 [facility] Work Phone: [phone] BASIC METABOLIC PANELon 06-2 Anion gap [Moles/Vol] 15 mmol/L Normal 10 - 20 [facility] Comment on above: Performed By: #### B MP #### [facility] [address] [place] [address] Calcium [Mass/Vol] 9.6 mg/dL Normal 8.6 - 10.6 [facility], [place] Comment on above: Performed By: #### B MP #### [facility] [address] [place] [address] Chloride [Moles/Vol] 107 mmol/L Normal 98 - 107 [facility] Comment on above: Performed By: #### B MP #### [facility] [address] [place] [address] Creatinine [Mass/Vol] 0.82 mg/dL Normal 0.50 - 1.05 [facility] Comment on above: Performed By: #### B MP #### [facility] [address] [place] [address] GFR/1.73 sq M.predicted among non-blacks MDRD (S/P/Bld) [Vol rate/Area] 80 mL/min/{1.73_m2} Normal >90 [facility] Comment on above: Result Comment: CALC ULATIONS OF ESTIMATED GFR ARE PERFORMED USING THE 2020 CKD-EPI STUDY REFIT EQUATION WITHOUT THE RACE VARIABLE FOR THE IDMS-TRACEABLE CREATININE METHODS. https://jasn.asnjournals.org/content//ASN.[email or web address] 74529 Performed By: #### B MP #### [facility] [address] [place] [address] Glucose [Mass/Vol] 133 mg/dL High 74 - 99 [facility], [place] Comment on above: Performed By: #### B MP #### [facility] [address] [place] [address] HCO3 (Bld) [Moles/Vol] 23 mmol/L Normal 21 - 32 [facility] Comment on above: Performed By: #### B MP #### [facility] [address] [place] [address] Potassium [Moles/Vol] 3.9 mmol/L Normal 3.5 - 5.3 [facility] Comment on above: Performed By: #### B MP #### [facility] [address] [place] [address] Sodium [Moles/Vol] 141 mmol/L Normal 136 - 145 [facility] [place] Comment on above: Performed By: #### B MP #### [facility] [address] [place] [address] Urea nitrogen [Mass/Vol] 28 mg/dL High 6 - 23 [facility] Comment on above: Performed By: #### B MP #### [facility] [address] [place] [address] CBCon 05-13-2022 Erythrocyte distribution width (RBC) [Ratio] 12.4 % Normal 11.5 - 14.5 [facility] Comment on above: Performed By: #### C BC #### [facility] [address] [place] [address] Hematocrit (Bld) [Volume fraction] 40.0 % Normal 36.0 - 46.0 [facility] Comment on above: Performed By: #### C BC #### [facility] [address] [place] [address] Hemoglobin (Bld) [Mass/Vol] 13.1 g/dL Normal 12.0 - 16.0 [facility] Comment on above: Performed By: #### C BC #### [facility] [address] [place] [address] MCHC (RBC) [Mass/Vol] 32.8 g/dL Normal 32.0 - 36.0 [facility] Comment on above: Performed By: #### C BC #### [facility] [address] [place] [address] MCV (RBC) [Entitic vol] 94 fL Normal 80 - 100 [facility] Comment on above: Performed By: #### C BC #### [facility] [address] [place] [address] NUCLEATED RBC 0.0 /100 WBC Normal 0.0-0.0 [facility] Comment on above: Performed By: #### C BC #### [facility] [address] [place] [address] Platelets (Bld) [#/Vol] 333 10*3/uL Normal 150 - 450 [facility] Comment on above: Performed By: #### C BC #### [facility] [address] [place] [address] RBC 4.27 x10E12/L Normal 4.00 - 5.20 [facility] Comment on above: Performed By: #### C BC #### [facility] [address] [place] [address] WBC (Bld) [#/Vol] 7.4 10*3/uL Normal 4.4 - 11.3 [facility] [place] Comment on above: Performed By: #### C BC #### [facility] [address] [place] [address] COAGULATION SCREENon 022 aPTT Coag (Bld) [Time] 27 s Normal 26 - 39 [facility] Comment on above: Result Comment: THE APTT IS NO LONGER USED FOR MONITORING UNFRACTIONATED HEPARIN THERAPY. FOR MONITORING HEPARIN THERAPY, USE THE HEPARIN ASSAY. Performed By: #### C OAGS #### [facility] [address] [place] [address] PT Coag (PPP) [Time] 11.6 s Normal 9.8 - 13.4 [facility] Comment on above: Performed By: #### C OAGS #### [facility] [address] [place] [address] PT, INR 1.0 Normal 0.9 - 1.1 [facility] Comment on above: Performed By: #### C OAGS #### [facility] [address] [place] [address] Established Visit (Otolaryng ology)on 05-12-2022 Established Visit [...] Chief Complaint follow up History of Present Trmqbka57 yo woman referred by Dr. Pena for [...] Atorvastatin Calcium 20 MG Oral Tablet Biotin 84025 MCG Oral Tablet Estradiol 0.1 MG/GM Vaginal Cream Lansoprazole 15 MG Oral Capsule Delayed Release Lisinopril 5 MG Oral Tablet Ocuvite TABS Htvgmnbon-Evtocpen-JC 30-2-10 MG/5ML Oral Syrup TruBiotics Oral Capsule Tylenol Extra Strength 500 MG Oral Tablet Venlafaxine HCl ER 75 MG Oral Capsule Extended Release 24 Hour Vitamin B12 TABS Vitamin D3 TABS Vitals Vital Signs Recorded: 12May2022 03:43PM Bqbcxxpsawq26 F Height5 ft 4 in Nbvzsy437 lb BMI Kvumsverrc28.15 kg/m2 BSA Calculated1.8 Tobacco Useb) No Falls [...] May 12 2022 4:21PM EST (Author) Normal [employer] [facility] - Chemistry and C hemistry - challengeon 05-12-2022 Anion gap [Moles/Vol] 15 mmol/L 10 - 20 MG- Otolaryngo [employer] Work Phone: Calcium [Mass/Vol] 9.6 mg/dL 8.6 - 10.6 MG-Jacek laryngo [employer] Work Phone: Chloride [Moles/Vol] 107 mmol/L 98 - 107 MG-O tolaryngo [employer] Work Phone: CO2 [Moles/Vol] 23 mmol/L 21 - 32 MG-Otolar yngo [employer] Work Phone: [phone] Creatinine [Mass/Vol] 0.82 mg/dL See Below MG- Otolaryngo [employer] Work Phone: Comment on above: Reference Range: 0.5 0 - 1.05 Glucose [Mass/Vol] 133 mg/dL above high threshold 74 - 99 MG-Otolaryngo [employer] Work Phone: Potassium [Moles/Vol] 3.9 mmol/L 3.5 - 5.3 MG- Otolaryngo [employer] Work Phone: [phone] Sodium [Moles/Vol] 141 mmol/L 136 - 145 [facility] laryngo [employer] Work Phone: Urea nitrogen [Mass/Vol] 28 mg/dL above high threshold 6 - 23 MG-Otolaryngo [employer] Work Phone: Laboratory - Coagulationon 0 05-12-2022 aPTT Coag (PPP) [Time] 27 s 26 - 39 MG -Otolaryngo [employer] Work Phone: Comment on above: THE APTT IS NO LONGE R USED FOR MONITORING UNFRACTIONATED HEPARIN THERAPY. FOR MONITORING HEPARIN THERAPY, USE THE HEPARIN ASSAY. INR Coag (PPP) [Relative time] 1.0 {INR} 0.9 - 1.1 MG-Otolaryngo [employer] Work Phone: PT Coag (PPP) [Time] 11.6 s 9.8 - 13.4 MG-O tolaryngo [employer] Work Phone: Laboratory - Hematology and Cell countson 05-12-2022 Erythrocyte distribution width (RBC) [Ratio] 12.4 % See Below MG-Otolaryngo [employer] Work Phone: Comment on above: Reference Range: 11. 5 - 14.5 Hematocrit (Bld) [Volume fraction] 40.0 % See Below MG-Otolaryngo logy-[facility] Work Phone: Comment on above: Reference Range: 36. 0 - 46.0 Hemoglobin (Bld) [Mass/Vol] 13.1 g/dL See Below MG-Otolaryngo [facility] Work Phone: Comment on above: Reference Range: 12. 0 - 16.0 MCHC (RBC) [Mass/Vol] 32.8 g/dL See Below MG- Otolaryngo logy-[facility] Work Phone: Comment on above: Reference Range: 32. 0 - 36.0 MCV (RBC) [Entitic vol] 94 fL 80 - 100 MG-Otolaryngo [facility] Work Phone: Platelets (Bld) [#/Vol] 333 10*3/uL 150 - 450 MG-Otolaryngo [facility] Work Phone: RBC (Bld) [#/Vol] 4.27 {x10E12/L} See Below MG -Otolaryngo [facility] Work Phone: Comment on above: Reference Range: 4.0 0 - 5.20 WBC (Bld) [#/Vol] 7.4 10*3/uL 4.4 - 11.3 [facility] laryngo [facility] Work Phone: No Panel Informationon 05-12 80 {mL/min/1.73m2} >90 MG-Jacek laryngo [facility] Work Phone: Comment on above: CALCULATIONS OF ANNA MATED GFR ARE PERFORMED USING THE 2020 CKD-EPI STUDY REFIT EQUATION WITHOUT THE RACE VARIABLE FOR THE IDMS-TRACEABLE CREATININE METHODS.https://jasn.asnjournals.org/content//A SN.[email or web address] 0.0 {/100_WBC} 0.0-0.0 MG-Otolary soto [facility] Work Phone: Tobacco Screening.on Fall risk assessment a) No falls within the last year MG-Otolaryngo logy- 4100 Work Phone: Tobacco use status [facility] b) No MG-Otolaryngo logy- 4100 Work Phone: Tobacco Screening.on Fall risk assessment a) No falls within the last year MG-Otolaryngo logy-Rashi Work Phone: Tobacco use status [facility] b) No MG-Otolaryngo logy-Rashi Work Phone: Vital Signs Date Time Vital Sign Value Performing Clinician Faci lity 07-10-2025 08:07-0400 Body height 163.[address] Portillo Sanchez MD Work Phone: [facility] 07-10-2025 08:02-0400 Body mass index (BMI) [Ratio] 28.3 kg/m2 Dr. Portillo Sanchez MD Work Phone: [facility] 07-10-2025 08:02-0400 Body weight 75.[address] Portillo Sanchez MD Work Phone: [facility] 07-10-2025 08:02-0400 Diastolic blood pressure 82 mm[Hg] Dr. Portillo Sanchez MD Work Phone: [facility] 07-10-2025 08:02-0400 Systolic blood pressure 132 mm[Hg] Dr. Portillo Sanchez MD Work Phone: [facility] 04-04-2024 14:55-0400 Body height 162.6 cm Edison Evans MD Work Phone: [facility] 04-04-2024 14:55-0400 Body mass index (BMI) [Ratio] 28.32 kg/m2 Edison Evans MD Work Phone: [facility] 04-04-2024 14:55-0400 Body weight 74.84 kg Edison Evans MD Work Phone: [facility] 10-05-2023 15:09-0500 Body height 163.2 cm Edison Evans MD Work Phone: [facility] 10-05-2023 15:09-0500 Body mass index (BMI) [Ratio] 28.61 kg/m2 Edison Evans MD Work Phone: [facility] 10-05-2023 15:09-0500 Body weight 76.2 kg Edison Evans MD Work Phone: [facility] 06-22-2023 08:11-0400 Body height 163.[address] Shamir Sanchez Work Phone: [facility] 06-22-2023 08:10-0400 Body mass index (BMI) [Ratio] 28.4 kg/m2 Dr. Shamir Sanchez Work Phone: [facility] 06-22-2023 08:10-0400 Body weight 75.[address] Shamir Sanchez Work Phone: [facility] 06-22-2023 08:10-0400 Diastolic blood pressure 82 mm[Hg] Dr. Shamir Sanchez Work Phone: [facility] 06-22-2023 08:10-0400 Respiratory rate 17 /min Dr. Shamir Sanchez Work Phone: [facility] 06-22-2023 08:10-0400 Systolic blood pressure 142 mm[Hg] Dr. Shamir Sanchez Work Phone: [facility] 01-26-2023 08:17-0400 Body height 162.56 cm Portillo Sanchez Work Phone: [facility] Work Phone: 01-26-2023 08:17-0400 Body mass index (BMI) [Ratio] 28.65 kg/m2 Portillo Sanchez Work Phone: ZD-Zijtdcxqnwgcih-L [facility] 4100 Work Phone: 01-26-2023 08:17-0400 Body surface area Derived from formula 1.81 m2 Portillo Sanchez Work Phone: GL-Uxsvbolxvrzcxb-O [facility] 4100 Work Phone: 01-26-2023 08:17-0400 Body weight 75.71 kg Portillo Sanchez Work Phone: QW-Kzdgtwsafnzqkq-G [facility] 4100 Work Phone: 06-23-2022 14:51-0400 Body height 162.56 cm Portillo Sanchez Work Phone: UB-Nidkudgxquznvb-J [facility] Work Phone: 06-23-2022 14:51-0400 Body mass index (BMI) [Ratio] 27.67 kg/m2 Portillo Sanchez Work Phone: DK-Ejxjmyxuegouku-V e[facility]man Work Phone: 06-23-2022 14:51-0400 Body surface area Derived from formula 1.78 m2 Portillo Sanchez Work Phone: IL-Phantewsbrkrdj-G eidman Work Phone: 06-23-2022 14:51-0400 Body temperature 93.6 [degF] Portillo Sanchez Work Phone: AC-Hwerhlbcklfwcg-D e[facility]man Work Phone: 06-23-2022 14:51-0400 Body weight 73.12 kg Portillo Sanchez Work Phone: XN-Flextdmpokqbtl-J e[facility]man Work Phone: 06-16-2022 08:07-0400 Body height 163.[address] Shamir Sanchez Work Phone: [facility] Work Phone: 06-16-2022 08:07-0400 Body mass index (BMI) [Ratio] 27.4 kg/m2 Dr. Shamir Sanchez Work Phone: [facility] Work Phone: 06-16-2022 08:07-0400 Body weight 73.[address] Shamir Sanchez Work Phone: [facility] Work Phone: 06-16-2022 08:07-0400 Diastolic blood pressure 76 mm[Hg] Dr. Shamir Sanchez Work Phone: [facility] Work Phone: 06-16-2022 08:07-0400 Systolic blood pressure 118 mm[Hg] Dr. Shamir Sanchez Work Phone: [facility] Work Phone: 05-12-2022 15:43-0400 Body height 162.56 cm Portillo Sanchez Work Phone: [facility] 4100 Work Phone: 05-12-2022 15:43-0400 Body mass index (BMI) [Ratio] 28.15 kg/m2 Portillo Sanchez Work Phone: [facility] 4106 Work Phone: 05-12-2022 15:43-0400 Body surface area Derived from formula 1.8 m2 Portillo Sanchez Work Phone: [facility] 4100 Work Phone: 05-12-2022 15:43-0400 Body temperature 99 [degF] Portillo Sanchez Work Phone: [facility] 4[facility] Work Phone: 05-12-2022 15:43-0400 Body weight 74.39 kg Portillo Sanchez Work Phone: RR-Ssuubcfaemtowi-Y [facility] 4100 Work Phone: 12-30-2021 16:04-0500 Body height 162.56 cm Portillo Sanchez Work Phone: OV-Fhgoyflsuefhil-F eidman Work Phone: 12-30-2021 16:04-0500 Body mass index (BMI) [Ratio] 27.96 kg/m2 Portillo Sanchez Work Phone: SR-Nlianhrmtybhto-M e[facility]man Work Phone: 12-30-2021 16:04-0500 Body surface area Derived from formula 1.79 m2 Portillo Sanchez Work Phone: XU-Qwubbynufrnpno-B eidman Work Phone: 12-30-2021 16:04-0500 Body temperature 98.2 [degF] Portillo Sanchez Work Phone: TV-Quydrgfhibzsxx-P eidman Work Phone: 12-30-2021 16:04-0500 Body weight 73.89 kg Portillo Sanchez Work Phone: EZ-Xukigzsssalozp-V eidman Work Phone: 06-11-2021 08:51-0400 Body mass index (BMI) [Ratio] 27.3 kg/m2 Dr. Shamir Sanchez Work Phone: [facility] Work Phone: Encounters Encounter Date Encounter Type Care Provider Facility Start: 07-10-2025 End: 07-10-[address] Portillo Sanchez MD Work Phone: -Laboratory Specimen Start: 07-10-2025 End: 07-10-2025 Patient encounter procedure Marlys Louie [employer]CRETE PIPE MACHINE OPERATOR-C -Laboratory Specimen Work Phone: Start: 07-10-2025 End: 07-10-2025 Patient encounter status Marlys Louie CONCRETE PIPE MACHINE OPERATOR-C [facility] Start: 07-10-2025 End: 07-10-[address] Portillo Sanchez MD Work Phone: -[facility] Start: 07-10-2025 End: 07-10-2025 Patient encounter procedure Marlys Louie CONCRETE PIPE MACHINE OPERATOR-C -[facility] Work Phone: Start: 07-10-2025 End: 07-10[facility] Start: 06-26-2025 End: 06-26-[address] Portillo Sanchez MD Work Phone: -Laboratory [facility] Start: 06-26-2025 End: 06-26-[address] Portillo Sanchez MD -Laboratory [facility] Start: 06-26-2025 End: 06-26-2025 [facility] Start: 12-12-2024 End: 12-12-2024 ambulatory [facility] Facility:[facility] Start: 04-04-2024 End: 04-04-2024 ambulatory [facility] Start: 04-04-2024 End: 04-04-2024 Office outpatient visit 15 minutes Edison Evans MD Work Phone: [facility] Comment on above: Papilloma of orophar ynx (Primary Dx) Start: 12-07-2023 End: 12-07-2023 ambulatory [facility] Work Phone: Start: 12-07-2023 End: 12-07-2023 Patient encounter procedure [facility] Work Phone: Start: 10-05-2023 End: 10-05-2023 ambulatory [facility] Start: 10-05-2023 End: 10-05-2023 Office outpatient visit 10 minutes Edison Evans MD Work Phone: [facility] Comment on above: Tonsillar mass (Prim mindy Dx) Start: 06-22-2023 End: 06-22-[address] Shamir Sanchez Work Phone: [facility] Work Phone: Start: 06-22-2023 End: 06-22-[address] Shamir Sanchez Work Phone: [facility] Work Phone: Start: 06-13-2023 End: 06-13-2023 ambulatory [facility] Work Phone: Start: 06-13-2023 End: 06-13-2023 Patient encounter procedure [facility]atory Work Phone: Start: 01-26-[address] Shamir Sanchez Facility:[id number] Start: 01-26-2023 Office outpatient vi sit 15 minutes Portillo Sanchez Work Phone: [facility] Work Phone: Start: 12-13-2022 End: 12-13-2022 ambulatory [facility] Work Phone: Start: 12-13-2022 End: 12-13-2022 Patient encounter procedure [facility]Labor[facility] Start: 06-24-2022 Chart Update Portillo Sanchez Work Phone: IQ-Yktaknfogfromr-Tiy dman Work Phone: Start: 06-23-2022 Chart Update Portillo Sanchez Work Phone: OJ-Mfhcjoovvkbpwf-Apa dman Work Phone: Start: 06-23-[address] Edison Evans Facility:[id number] Start: 06-16-2022 End: 06-16-[address] Shamir Sanchez Work Phone: [facility] Start: 06-13-[address] Shamir Sanchez Facility:[facility] Start: 06-11-2022 End: 06-11-[address] Shamir Sanchez Work Phone: [facility] Start: 06-02-2022 End: 06-02-[address] Portillo Sanchez Facility:[id number] Start: 05-30-2022 End: 05-30-2022 Patient encounter procedure [facility]-Laboratory, Specimen Start: 05-27-[address] Shamir Sanchez Facility:[id number] Start: 05-27-2022 Encounter for preprocedural cardiovascular examination Dr. Edison Evans [facility] Start: 05-13-2022 Chart Update Portillo Sanchez Work Phone: UJ-Lcpqnipjyufjnu-Lyu dman Work Phone: Start: 05-12-2022 Office outpatient vi sit 15 minutes Portillo Sanchez Work Phone: HQ[facility]ygyg[facility] 4100 Work Phone: Start: 05-12-[address] Edison Evans Facility:[id number] Start: 12-30-2021 Office outpatient ne w 30 minutes Portillo Sanchez Work Phone: SL-Nusythrwxgjhba-Fxz dman Work Phone: Procedures Date Procedure Procedure Detail Performing Clinician Start: 07-10-2025 Liquid based cervica l cytology screening Dr. Portillo Sanchez MD Work Phone: Comment on above: NEGATIVE FOR INTRAEP ITHELIAL LESION OR MALIGNANCY.CELLULAR CHANGES ASSOCIATED WITH ATROPHY ARE PRESENT. This liquid based Th inPrep(R) pap test was screened withthe use of an image guided system. Start: 07-10-2025 Screening mammography Stephanie Sanchez MD Work Phone: Start: 06-26-2025 Vitamin D, 25-hydrox y measurement [...] DTaP/Tdap/Td Vaccines (2 - Td or Tdap) [facility] Start: 07-10-2025 Screening mammography SCRN MAMM (CAD)W/SAMARIA [facility] Start: 05-01-2025 End: 05-01-2025 Patient encounter procedure 05/01/2025 3:00 PM EDT Office Visit [facility] [address] [place] [id number] [place] [address] [place] [address] [facility] Start: 04-04-2024 End: 04-04-2024 Patient encounter procedure 04/04/2024 3:15 PM EDT Office Visit [facility] [address] [place] [id number] [place] [address] [place] [address] [facility] Start: 02-28-2024 COVID-19 Vaccine ( season) COVID-19 Vaccine ( season) [facility] Start: 07-13-2023 FUV, Provider: Edison Evans, Status: Pen, Time: 4:00 PM FUV, Provider: Edison Evans, Status: Pen, Time: 4:00 PM KQ-Jpqtfdzntrapnr-Oxd [email or web address] 4100 Work Phone: Start: 01-26-2023 FUV, Provider: Edison Evans, Status: Pen, Time: 8:00 AM FUV, Provider: Edison Evans, Status: Pen, Time: 8:00 AM GH-Jogcxsdkonchby-Xeh dman Work Phone: Start: 12-29-2022 FUV, Provider: Edison Evans, Status: Pen, Time: 8:00 AM FUV, Provider: Edison Evans, Status: Pen, Time: 8:00 AM YY-Scknueyzlqknat-Hnp dman Work Phone: Start: 11-17-2022 COVID-19 Vaccine (5 - Moderna risk series) COVID-19 Vaccine (5 - Moderna risk series) [facility] Start: 06-16-2022 Liquid based cervical cytology screening [facility] Work Phone: Start: 06-02-2022 [facility], Provider: Edison Evans, Status: Pen, Time: 1:00 PM [facility], Provider: Edison Evans, Status: Pen, Time: 1:00 PM QY-Iyhzqwjfhsvbrh-Wjc dman Work Phone: Start: 05-12-2022 FUV, Provider: Edison Evans, Status: Pen, Time: 4:00 PM FUV, Provider: Edison Evans, Status: Pen, Time: 4:00 PM TF-Wonovlccmlsyfq-Elm dman Work Phone: Start: 10-26-2020 Zoster Vaccines (2 of 2) Zoster Vaccines (2 of 2) [facility] Start: 2018 RSV patients and/or patients aged 60+ years (1 - 1-dose 60+ series) RSV patients and/or patients aged 60+ years (1 - 1-dose 60+ series) [facility] Start: 1998 Screening for malignant neoplasm of breast Mammogram [facility] Start: 1979 Screening for malignant neoplasm of cervix [facility] Start: 1976 Diabetes mellitus screening Diabetes Screening [facility] Start: 1976 Hepatitis C screening Hepatitis C Screening [facility] Start: 1964 Pneumococcal Vaccine: 65+ Years (1 - PCV) Pneumococcal Vaccine: 65+ Years (1 - PCV) [facility] Start: 1959 MMR Vaccines (1 of 1 - Standard series) MMR Vaccines (1 of 1 - Standard series) [facility] Start: 1958 Lipid panel Lipid Panel [facility] Start: 1958 Screening for malignant neoplasm of colon [facility] Start: 1958 Screening for osteoporosis Bone Density Scan [facility] Start: 1958 Yearly Adult Physical Yearly Adult Physical [facility] MG Breast - bilatera l Screening [facility] Payers Date Payer Category Payer Medicare [id number] 2024 Self-pay [id number] 2024 Unknown [id number] 2024 Private Health Insurance [employer] A ETNA [facility] [id number] 2024-Present [id number] [place] [address] [id number] 2024 Private Health Insurance [id number] 2023 Unknown 2023 Unknown [id number] 1958 Unknown [id number] [id number]. 356 1958 Unknown [id number] [id number]. 356 1958 Unknown [id number] [id number]. 356 1958 Unknown [id number] [id number]. 356 1958 Unknown [id number] [id number]. 1046 1958 Unknown [id number] 2.16.840.1.935301.3.579.2. 1046 1958 Unknown [id number] [id number]. 1244 1958 Unknown [id number] [id number]. 1244 Unknown [id number] 2.16.840.1.131028.3.579.2. 462 Unknown [id number] 2.16.840.1.174425.3.579.2. 462 Unknown [id number] 2.16.840.1.852973.3.579.2. 462 Unknown [id number] [id number]. 462 Unknown [id number] [id number]. 462 Social History Date Type Detail Facility Start: 06-11-2021 End: 06-22-2023 Tobacco smoking status ARIS Unknown if ever smoked [facility] Start: 1960 Sex Assigned At Female [facility] Start: 10-05-2023 End: 07-10-2025 Tobacco smoking status NHIS Never smoked tobacco [facility] Work Phone: Start: 10-05-2023 Tobacco use and exposure Smokeless tobacco non-user [facility] Work Phone: Start: 10-05-2023 End: 04-04-2024 History of Social function [facility] Work Phone: Start: 10-05-2023 End: 04-04-2024 Tobacco use panel [facility] Work Phone: Start: 08-16-2023 Gender identity Identifies as female gender (finding) [facility] Work Phone: Start: 08-16-2023 Sexual orientation Heterosexual (finding) [facility] Work Phone: Start: 09-25-2023 End: 04-04-2024 Exposure to SARS-CoV-2 (event) Not sure [facility] Clinical Notes 12-31-2015 to 07-10-2025 Note Date & Type Note Facility 07-10-2025 Evaluation note Diagnosis Onset Date Resolution Anxiety and depression acute Au 2024 7:49am Atrophic vaginitis acute July 10, 2025 7:49am HPV (human papilloma virus) infection acute July 10 7:49am Encounter for routine gynecological examination noneactive July 10 7:49am [facility] Work Phone: [phone] 129-833905-20-2024 History of Present illness Narrative* Edison Evans MD - 04/04/2024 3:15 PM EDT ENT Follow up Visit History Of Present Illness Letitia Monte" is a 63 y.o. 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 Was concerned about some nodularity left tonsil Past Medical History She has no past medical history on file. Surgical History She has no past surgical history on file. Social History She reports that she has never smoked. She has never used smokeless tobacco. No history on file foralcohol use and drug use. Family History No family history on file. Allergies Estradiol-norethindrone acet and Penicillins Physical Exam: nad alert shonda eomi NCAT right tonsil fossa well healed scar band, no residual or new papilloma Left side normal tonsil, no papillomas neck without masses or LIVIA Last Recorded Vitals Height 1.626 m (5' 4"), weight 74.8 kg (165 lb). Assessment and Plan 63 y.o. female with oropharyngeal papillomas S/p excision with path showing mild-mod dysplasia with papilloma -no recurrence or new papillomas -reassured pt that the left tonsil nodularity is normal appearing -RTC in 6 months Edison Evans MD documented in this [facility] Work Phone: 1(281) 874-968611-20-2023 History of Present illness Narrative* Edison Evans MD - 10/05/2023 3:15 PM EST ENT Follow up Visit History Of Present Illness Letitia Monte" is a 63 y.o. female presents for [...] used smokeless tobacco. No history on file foralcohol use and drug use. Family History No family history on file. Allergies Estradiol-norethindrone acet and Penicillins Physical Exam: nad alert shonda eomi NCAT right tonsil fossa well healed scar band no residual papilloma seen neck without masses or LIVIA Last Recorded Vitals Height 1.632 m (5' 4.25"), weight 76.2 kg (168 lb). Assessment and Plan 63 y.o. female with oropharyngeal papillomas S/p excision with path showing mild-mod dysplasia with papilloma -well healed -RTC in 6 months Edison Evans MD documented in this [facility] Work Phone: 1(545) 514-503608-01-2022 NotePap Smear Specimen AdequacyAugust 2021 9:51amComment.Satisfactory for evaluation. Endocervical component may not bedistinguished in cases of atrophy.[id number] Work Phone: Comment on above:Satisfactory for evaluation. Endocervical component may not bedistinguished in cases of atrophy.06-02-2022 NotePROCEDURE DETAILS Preoperative Diagnosis: 1. Papilloma of oropharynx Postoperative Diagnosis: 1. Papilloma of oropharynx Surgeon: Edison Evans Resident/Fellow/Other [employer] Pcb Designer: Jose Maria Procedure: 1. Revision right tonsillectomy, [...] Completion Last Updated: 02-Jun-2022 08:23 by Edison Evans)[facility] 06-02-2022 NoteHistory & Physical Reviewed: I have reviewed the History and Physical [...] the note. I personally evaluated the patient [id number] Electronic Signatures: Edison Evans) (Signed 02-Jun-2022 07:26) Authored: Note Completion Co-Signer: History & Physical Reviewed, ERAS, Consent, Note Completion Geoff Moise (Resident)) (Signed 02-Jun-2022 07:21) Authored: History & Physical Reviewed, ERAS, Consent, Note Completion Last Updated: 02-Jun-2022 07:26 by Edison Evans)[facility] 01-26-2017 History of Present illness Narrative* 61 yo woman referred by Dr. Pena for evaluation of oropharyngeal papillomas. She first noticed this 5-6 years ago. had right sided tonsillectomy for redundant tissue prior to that. May have slowly grown but not causing any symptoms. No pain, no trouble breathing; no bleeding. This was biopsied showing no malignancy. no bleeding disorders, no cardiac problems. * 05-12-22 FU: no new complaints, some right sided nasal congestion off an on. no pain * 06-23-22 post-op: s/p removal of oropharyngeal papilloma. minimal pain, no bleeding * 01-26-23 FU: doing well, no complaints today [facility] Work Phone: 1(652) 263-687806-28-2016 History of Present illness Narrative* 61 yo woman referred by Dr. Pena for evaluation of oropharyngeal papillomas. She first noticed this 5-6 years ago. had right sided tonsillectomy for redundant tissue prior to that. May have slowly grown but not causing any symptoms. No pain, no trouble breathing; no bleeding. This was biopsied showing no malignancy. no bleeding disorders, no cardiac problems. * 05-12-22 FU: no new complaints, some right sided nasal congestion off an on. no pain [facility] Work Phone: 1(794) 653-830902-15-2016 History of Present illness Kycubevbi30 yo woman referred by Dr. Pena for evaluation of oropharyngeal papillomas. She first noticed this 5-6 years ago. had right sided tonsillectomy for redundant tissue prior to that. May have slowly grown but not causing any symptoms. No pain, no trouble breathing; no bleeding. This was biopsied showing no malignancy. no bleeding disorders, no cardiac problems. [facility] Work Phone: 1([phone]) [phone] History of Present illness Rjikkkbhi15 yo woman referred by Dr. Pena for evaluation of oropharyngeal papillomas. She first noticed this 5-6 years ago. had right sided tonsillectomy for redundant tissue prior to that. May have slowly grown but not causing any symptoms. No pain, no trouble breathing; no bleeding. This was biopsied showing no malignancy. no bleeding disorders, no cardiac problems.[facility] Work Phone: chief complaint+Reason for visit Narrative* Chief Complaint COVID-19 VIRUS DETEC TION [facility] Work Phone: Chief complaint+Reason for visit Narrative* Chief Complaint COVID-19 VIRUS DETEC TION SCREENING Annual ([employer]) Reason for Visit Atrophic vaginitis HPV (human papilloma virus) infection Encounter for routine gynecological examination [facility] Work Phone: Evaluation noteNo assessment information available [facility] Work Phone: Evaluation note* Diagnosis Onset Date Resolution Status Atrophic vaginitis acute HPV (human papilloma virus) infection acute Encounter for routine gynecological examination noneactive [facility] Work Phone: Evaluation note* Diagnosis Onset Date Resolution Status Anxiety and depression acute Atrophic vaginitis acute HPV (human papilloma virus) infection acute Encounter for routine gynecological examination noneactive [facility] Work Phone: Evaluation note* Diagnosis Tonsillar mass- Primary documented in this encounter [facility] Work Phone: Evaluation note* Diagnosis Papilloma of oropharynx- Primary documented in this encounter [facility] Work Phone: Evaluation note* Diagnosis Onset Date Resolution Status Admit Date Encounter for routine gynecological examination noneactive July 10, 2025 7:49am [facility] Work Phone: Reason for referral (narrative)No reason for referral information availableWMercy [facility] Work Phone: Chief Complaint squamous papilloma [...] FoundDocuments on File Type Date Recorded Patient Certified Coding Specialist Expl anation Healthcare Power of Atty 06/02/2022 Living Will 06/02/2022 Chief Complaint and Reason for Visit Chief Complaint breast cancer screen ing Annual ([employer]) Reason for Visit Anxiety and depressi on Atrophic vaginitis HPV (human papilloma virus) infection Encounter for routine gynecological examination Chief Complaint INT LABS Chief Complaint Admit Date Breast cancer screening July 10 7:19am Annual ([employer]) July 10, 2025 7: 49am Reason for Visit Admit Date Encounter for routine gynecological exam ination July 10, 2025 7:49am Reason for Visit Admit Date Anxiety and depression July 10, 2025 7:49am Atrophic vaginitis July 10, 2025 7: 49am HPV (human papilloma virus) infection 2024 7:49am Encounter for routine gynecological exam ination July 10, 2025 7:49am Additional Source Comments Goals (unrecognized section and [...] Provider, Refe rring Provider Active Marlys Louie CONCRETE PIPE MACHINE OPERATOR, CONCRETE PIPE MACHINE OPERATOR-C Attending Provider Active Team Status: Inactive Member Role Status Dates Dr. Shamir Sanchez MD Primary Care Provider Activ e Marlys Louie CONCRETE PIPE MACHINE OPERATOR, CONCRETE PIPE MACHINE OPERATOR-C Attending Provider, Referring Provider Active Imitation Marble Mechanic Relationship Specialty Start Date End Date Portillo Sanchez MD [facility] [address] [place] [address] PCP - General 12/30/21 Team Status: Inactive Member Role Status Dates Dr. Shamir Sanchez MD Primary Care Provider, Attending Provider, Referring Provider Active Imitation Marble Mechanic Relationship Specialty Start Date End Date Portillo [...] June 26, 2025 End: June 26, 2025 Team Status: Active Member Role/Relationship Status Dates Dr. Portillo Sanchez MD Primary Care Provider Acti ve Team Status: Active Member Role/Relationship Status Dates Dr. Portillo Sanchez MD Primary Care Provider Acti ve Start: July 10, 2025 Marlys Louie CONCRETE PIPE MACHINE OPERATOR, CONCRETE PIPE MACHINE OPERATOR-C Attending Provider Active Start: July 10, 2025 Marlys Louie CONCRETE PIPE MACHINE OPERATOR, CONCRETE PIPE MACHINE OPERATOR-C Referring Provider Active Start: July 10, 2025 Team Status: Inactive Member Role/Relationship Status Dates Dr. Portillo Sanchez MD Primary Care Provider Acti ve Start: July 10, 2025 End: July 10, 2025 Dr. Portillo Sanchez MD Referring Provider Active Start: July 10, 2025 End: July 10, 2025 Marlys Louie CONCRETE PIPE MACHINE OPERATOR, CONCRETE PIPE MACHINE OPERATOR-C Attending Provider Active Start: July 10, 2025 End: July 10, 2025 Team Status: Inactive Member Role/Relationship Status Dates Dr. Portillo Sanchez MD Primary Care Provider Acti ve Start: July 10, 2025 End: July 10, 2025 Marlys Louie CONCRETE PIPE MACHINE OPERATOR, CONCRETE PIPE MACHINE OPERATOR-C Attending Provider Active Start: July 10, 2025 End: July 10, 2025 Marlys Louie CONCRETE PIPE MACHINE OPERATOR, CONCRETE PIPE MACHINE OPERATOR-C Referring Provider Active Start: July 10, 2025 End: July 10, 2025 Team Status: Inactive Member Role/Relationship Status Dates Dr. Portillo Sanchez MD Primary Care Provider Acti ve Start: July 10, 2025 End: July 10, 2025 Marlys Louie CONCRETE PIPE MACHINE OPERATOR, CONCRETE PIPE MACHINE OPERATOR-C Attending Provider Active Start: July 10, 2025 End: July 10, 2025 Marlys Louie CONCRETE PIPE MACHINE OPERATOR, CONCRETE PIPE MACHINE OPERATOR-C Referring Provider Active Start: July 10, 2025 End: July 10, 2025 INFORMATION SOURCE (unrecogn ized section and content) DATE CREATED AUTHOR 01/26/2023 [facility] DATE CREATED AUTHOR AUTHOR'S ORGANIZ ATION 01/26/2023 [employer] DATE CREATED AUTHOR AUTHOR'S ORGANIZ ATION 02/13/2023 [facility] DATE CREATED AUTHOR AUTHOR'S ORGANIZ ATION 04/06/2024 [facility] DATE CREATED AUTHOR AUTHOR'S ORGANIZ ATION 07/16/2025 [facility] Reason for Visit (unrecogniz ed section and [...] BE BASED ON THE PRIMARY CLINICAL RECORDS. [facility] [employer] [facility] provides no warranty or guarantee of the accuracy or completeness of information in this document.
== END | disposition home or self-care (01) ==
LOC: MFPLAB 15:51
PROVIDERS: PCP Family Medicine; Visit Provider Family Medicine
DX: Z00.00 Encounter for general adult medical examination without abnormal findings (principal)